=== PATIENT | female | born 1935 | race African-American/Black ===

== ENCOUNTER 2017-04-03 16:36 | Day surgery (SDC) | payer OTHER, MEDICARE ==
[2017-04-03 16:42] VITALS: BMI 19.8
[2017-04-03] MEDS ORDERED: LIDOCAINE HCL 1%, 10 MG/ML (20ML VIAL) ONE (16:59)
[2017-04-03] MEDS ORDERED: HEPARIN NA (PORCINE) 5,000 UNITS/ML 1ML VIAL ONE ×3 (16:59→19:10)
--- NOTE | 2017-04-03 17:38 | PDOC ---
Attending Attestation - Resident Resident Name: Gage Hassan - ED Attending Attestation I have performed the following: I have examined & evaluated the patient, The case was reviewed & discussed with the resident, I agree w/resident's findings & plan, Exceptions are as noted - HPI HPI: 81 yo F history ESRD on HD MWF presents with clotted AVF. She was scheduled for dialysis today, was not able to get it due to inability to access the fistula. She denies any trauma. No pain. No weakness, numbness. - Physicial Exam PE: GENERAL: Awake, alert, and fully oriented, in no acute distress HEAD: No signs of trauma EYES: PERRLA, EOMI, sclera anicteric, conjunctiva clear ENT: Auricles normal inspection, hearing grossly normal, nares patent, oropharynx clear without exudates. Moist mucosa NECK: Normal ROM, supple, no lymphadenopathy, JVD, or masses LUNGS: Breath sounds equal, clear to auscultation bilaterally. No wheezes, and no crackles HEART: Regular rate and rhythm, normal S1 and S2, no murmurs, rubs or gallops ABDOMEN: Soft, nontender, normoactive bowel sounds. No guarding, no rebound. No masses EXTREMITIES: L upper arm AVF with absent thrill, bruit. Extremities with otherwise normal range of motion, no edema. No clubbing or cyanosis. No cords, erythema, or tenderness NEUROLOGICAL: Cranial nerves II through XII grossly intact. Normal speech, normal gait SKIN: Warm, Dry, normal turgor, no rashes or lesions noted. - Medical Decision Making Patient sent by Dr. Momin for admission via OR.
[2017-04-03 17:52] LABS: BASOPHIL 1.9 % (0-2.0); EOSINOPHIL 3.1 % (0-4.5); MCH 33.1 pg (25.7-33.7); MCHC 34.1 g/dl (32.0-36.0); MEAN CELL VOLUME 97.1 fl (80-96); MEAN PLT VOLUME 7.5 fl (7.5-11.1); NEUTROPHILS 48.4 % (42.8-82.8); PLATELET COUNT 360 K/MM3 (134-434); RDW 13.8 % (11.6-15.6)
--- NOTE | 2017-04-03 17:52 | PDOC ---
History of Present Illness <Blank Nur - Last Filed: 04/03/17 17:54> - History of Present Illness Initial Comments: 04/03/17 17:47 Patient is a 81 year old female with a history of HTN, DM and ESRD on Dialysis MWF who presents with a clotted AV shunt. The patient is accompanied by her daughter who assists in providing the history. They report that the patient was at dialysis today when the tech could not access the shunt and noted clotted blood. They noted no palpable thrill and sent them to the ED for evaluation prior to vascular surgery to revise the shunt. The daughter reports that the shunt has clotted off three time prior with multiple stents placed to attempt to keep it open. This is the fourth time the shunt has clotted. Dr. Momin is aware and is planning to take her to the OR for revision. She denies fevers, chills, SOB, chest pain, abdominal pain, or changes with urination or bowel movements. <Gage Hassan - Last Filed: 04/03/17 18:37> - General Chief Complaint: Dialysis Shunt Problem Stated Complaint: Dialysis Shunt Problem Time Seen by Provider: 04/03/17 17:31 Past History <Blank Nur - Last Filed: 04/03/17 17:54> - Past Medical History Diabetes: Yes Dialysis: Yes (left arm fistula mon we fr) HTN: Yes Hypercholesterolemia: Yes - Immunization History Immunization Up to Date: No - Psycho/Social/Smoking Cessation Hx Suicidal Ideation: No Smoking History: Never smoked Information on smoking cessation initiated: No Hx Alcohol Use: No Drug/Substance Use Hx: No Substance Use Type: None <Gage Hassan - Last Filed: 04/03/17 18:37> - Past Medical History Allergies/Adverse Reactions: Allergies Allergy/AdvReac Type Severity Reaction Status Date / Time No Known Allergies Allergy Verified 04/03/17 16:42 Home Medications: Ambulatory Orders Amlodipine Besylate [Norvasc -] 10 mg PO DAILY 12/16/13 Clindamycin [Cleocin -] 300 mg PO Q6HPO #20 capsule 12/16/13 Hum Insulin NPH/Reg Insulin Hm [Novolin 70-30 100 Unit/ml Vial] 15 unit SQ BID 12/16/13 Pravastatin Sodium [Pravachol -] 40 mg PO HS 12/16/13 Review of Systems - Review of Systems Constitutional: No: Chills, Fever Respiratory: No: Cough, Shortness of Breath Cardiac (ROS): No: Chest Pain, Lightheadedness, Chest Tightness ABD/GI: No: Constipated, Diarrhea, Nausea, Vomiting : No: Burning, Dysuria Integumentary: No: Rash Neurological: No: Headache, Numbness, Tingling, Weakness <Gage Hassan - Last Filed: 04/03/17 18:37> *Physical Exam - Vital Signs Last Vital Signs Temp Pulse Resp BP Pulse Ox 98.4 F 63 18 151/83 100 04/03/17 16:40 04/03/17 16:40 04/03/17 16:40 04/03/17 16:40 04/03/17 16:40 <Blank Nur - Last Filed: 04/03/17 17:54> - Vital Signs Last Vital Signs Temp Pulse Resp BP Pulse Ox 98.4 F 63 18 151/83 100 04/03/17 16:40 04/03/17 16:40 04/03/17 16:40 04/03/17 16:40 04/03/17 16:40 - Physical Exam Comments: 04/03/17 18:11 General Appearance: Nourished. No Apparent Distress HEENT: No Pharyngeal Erythema, Tonsillar Exudate, Tonsillar Erythema Neck: No Lymphadenopathy Respiratory/Chest: Lungs Clear, Normal Breath Sounds. No Crackles, Rales, Rhonchi, Wheezing Cardiovascular: Regular Rhythm, Regular Rate. No Murmur, Gallop/S3, Gallop/S4 Gastrointestinal/Abdominal: Normal Bowel Sounds, Soft. No Guarding, Rebound, Tenderness Extremity: Normal Capillary Refill, Left AV fistula palpated without palpable thrill Integumentary: Normal Color, Dry, Warm Neurologic: Fully Oriented, Alert, Normal Mood/Affect, Normal Response <Gage Hassan - Last Filed: 04/03/17 18:37> Heart Score/ECG Review #1 ECG reviewed & interpreted by me at: 18:17 General ECG Interpretation: Sinus Rhythm, Normal Rate, Normal Intervals, No acute ischemic changes <Gage Hassan - Last Filed: 04/03/17 18:37> ED Treatment Course - LABORATORY CBC & Chemistry Diagram: 04/03/17 17:42 04/03/17 17:42 - ADDITIONAL ORDERS Additional order review: 04/03/17 17:42 RBC 3.58 L MCV 97.1 H MCHC 34.1 RDW 13.8 MPV 7.5 Neutrophils % 48.4 Lymphocytes % 39.4 Monocytes % 7.2 Eosinophils % 3.1 Basophils % 1.9 <Blank Nur - Last Filed: 04/03/17 17:54> - LABORATORY CBC & Chemistry Diagram: 04/03/17 17:42 04/03/17 17:42 <Gage Hassan - Last Filed: 04/03/17 18:37> Medical Decision Making - Medical Decision Making 04/03/17 18:12 Patient is a 81 year old female with a history of HTN, DM and ESRD on Dialysis MWF who presents with a clotted AV shunt. Dr. Momin has already seen the patient in the ED and will be taking her up to the OR for revision. We will obtain a cbc, cmp, INR and EKG here in the ED as pre-operative preparation. We discussed the plan with the patient and she is aware and agreeable with the plan. 04/03/17 18:16 Patient has been taken up to the OR. CMP, INR are still pending. CBC is unremarkable. <Gage Hassan - Last Filed: 04/03/17 18:37> *DC/Admit/Observation/Transfer - Discharge Dispostion Admit: Yes <Blank Nur - Last Filed: 04/03/17 17:54> <Gage Hassan - Last Filed: 04/03/17 18:37> Diagnosis at time of Disposition: Clotted renal dialysis AV graft Qualifiers: Encounter type: initial encounter Qualified Code(s): T82.868A - Thrombosis due to vascular prosthetic devices, implants and grafts, initial encounter - Discharge Dispostion Condition at time of disposition: Guarded - Referrals Referrals: Chely Iyer MD [Primary Care Provider] -
[2017-04-03 18:02] LABS: INR 1.03 (0.82-1.09); PROTHROMBIN TIME (PATIENT) 11.3 SEC (9.98-11.88)
--- NOTE | 2017-04-03 18:05 | HP ---
Admitting History and Physical - Admission History of Present Illness: 81 year old woman with ESRD on HD has a clotted AV graft and was unable to receive dialysis today. She recently had thrombectomy in January with stenting of axillary vein. 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 Cardiovascular: Yes: HTN Renal/: Yes: Renal Failure, Hemodialysis - Smoking History Smoking history: Never smoked - Alcohol/Substance Use Hx Alcohol Use: No Home Medications - Allergies Allergies/Adverse Reactions: Allergies Allergy/AdvReac Type Severity Reaction Status Date / Time No Known Allergies Allergy Verified 04/03/17 16:42 - Home Medications Home Medications: Ambulatory Orders Amlodipine Besylate [Norvasc -] 10 mg PO DAILY 12/16/13 Clindamycin [Cleocin -] 300 mg PO Q6HPO #20 capsule 12/16/13 Hum Insulin NPH/Reg Insulin Hm [Novolin 70-30 100 Unit/ml Vial] 15 unit SQ BID 12/16/13 Pravastatin Sodium [Pravachol -] 40 mg PO HS 12/16/13 Physical Examination Vital Signs: Vital Signs Temperature 98.4 F 04/03/17 16:40 Pulse Rate 63 04/03/17 16:40 Respiratory Rate 18 04/03/17 16:40 Blood Pressure 151/83 04/03/17 16:40 O2 Sat by Pulse Oximetry (%) 100 04/03/17 16:40 Constitutional: Yes: Calm Eyes: Yes: WNL HENT: Yes: WNL Neck: Yes: WNL, Supple Cardiovascular: Yes: Regular Rate and Rhythm Respiratory: Yes: Regular Gastrointestinal: Yes: Soft Extremities: Yes: WNL, Other (Left arm graft no pulse or bruit) Labs: CBC, BMP 04/03/17 17:42 Problem List - Problems (1) Clotted renal dialysis AV graft Assessment/Plan: Plan operative thrombectomy and angiogram Code(s): T82.868A - THROMBOSIS DUE TO VASCULAR PROSTH DEV/GRFT, INIT Qualifiers: Encounter type: initial encounter Qualified Code(s): T82.868A - Thrombosis due to vascular prosthetic devices, implants and grafts, initial encounter (2) ESRD (end stage renal disease) on dialysis Assessment/Plan: Dr. Reyes consulted for dialysis in AM Code(s): N18.6 - END STAGE RENAL DISEASE Z99.2 - DEPENDENCE ON RENAL DIALYSIS
[2017-04-03 18:15] LABS: ALBUMIN 3.7 g/dl (3.4-5.0); ANION GAP 12 (8-16); BILIRUBIN,TOTAL 0.3 mg/dL (0.2-1.0); CALCIUM 9.3 mg/dL (8.5-10.1); CO2 26 mmol/L (21-32); GLUCOSE,RANDOM 191 mg/dL (74-106); SGOT/AST 11 U/L (15-37); SGPT/ALT 15 U/L (12-78); TOT PROT 7.9 g/dl (6.4-8.2)
[2017-04-03 18:30] LABS: ALK PHOS 137 U/L (45-117); CREATININE 7.6 mg/dL (0.55-1.02)
[2017-04-03] MEDS ORDERED: MIDAZOLAM HCL 2 MG/2 ML SINGLE DOSE VIAL ONE (18:49)
[2017-04-03] MEDS ORDERED: hydrALAZINE HCL 20 MG/ML VIAL ONE (19:02)
--- NOTE | 2017-04-03 19:46 | OP ---
Operative Note - Note: Operative Date: 04/03/17 Pre-Operative Diagnosis: Thrombosed AV graft Operation: Open thrombectomy AV graft. Venogram Findings: Thrombosed AV graft Mild stenosis of axillary vein stents No arterial stenosis. Post-Operative Diagnosis: Same as Pre-op Surgeon: Juan Momin Anesthesiologist/GOVERNMENT AFFAIRS SPECIALIST: Alfredo Reid Anesthesia: Fractional Estimated Blood Loss (mls): 50
[2017-04-03] MEDS ORDERED: ACETAMINOPHEN 325 MG TABLET (FP) PO PRN (19:52)
[2017-04-03] MEDS ORDERED: ONDANSETRON 4 MG/2 ML VIAL IVPB PRN (19:52)
[2017-04-03] MEDS ORDERED: oxyCODONE HCL 5 MG TABLET PO PRN (19:52)
[2017-04-03] MEDS ORDERED: ASPIRIN 81 MG CHEWABLE TABLETS ONE (20:10)
[2017-04-03] MEDS: ASPIRIN 81 MG CHEWABLE TABLETS PO SCH (20:10)
[2017-04-03] MEDS ORDERED: ATORVASTATIN CA 10 MG TABLET (FP) PO SCH (22:00)
[2017-04-03] MEDS: amLODIPine BESYLATE 10 MG TABLET (FP) PO SCH (22:02)
[2017-04-04] MEDS ORDERED: ALLOPURINOL 100 MG TABLET (FP) PO SCH (10:00)
[2017-04-04] MEDS ORDERED: VITAMIN B COMP W-C 1 EA TABLET PO SCH (10:00)
[2017-04-04] MEDS ORDERED: ENOXAPARIN NA (PORCINE) 30 MG/0.3 ML DISP.SYRIN SQ SCH (10:00)
[2017-04-04 10:19] VITALS: TEMP 97.8
--- NOTE | 2017-04-04 11:28 | CONSULT ---
Consult Consult Specialty:: Nephrology ( Drs. Iyer/ Leo) Referred by:: Dr. Momin Reason for Consultation:: Patient with ESRD - History of Present Illness Chief Complaint: 81 year old woman with ESRD on HD has a clotted AV graft and was unable to receive dialysis yesterday. She recently had thrombectomy in January with stenting of axillary vein. The patient had thrombectomy done by Dr. Momin yesterday, and is now receiving HD using the AVG. ABF maintained at 400 ml/min. 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: Yes: CVA Cardio/Vascular: Yes: HTN Renal/: Yes: Renal Failure, Hemodialysis ...: No - Alcohol/Substance Use Hx Alcohol Use: No - Smoking History Smoking history: Never smoked Home Medications - Allergies Allergies/Adverse Reactions: Allergies Allergy/AdvReac Type Severity Reaction Status Date / Time No Known Allergies Allergy Verified 04/03/17 16:42 - Home Medications Home Medications: Ambulatory Orders Amlodipine Besylate [Norvasc -] 10 mg PO DAILY 12/16/13 Clindamycin [Cleocin -] 300 mg PO Q6HPO #20 capsule 12/16/13 Hum Insulin NPH/Reg Insulin Hm [Novolin 70-30 100 Unit/ml Vial] 15 unit SQ BID 12/16/13 Pravastatin Sodium [Pravachol -] 40 mg PO HS 12/16/13 Review of Systems - Review of Systems Constitutional: reports: Malaise, Weakness HENT: reports: No Symptoms Neck: reports: No Symptoms Respiratory: reports: No Symptoms Gastrointestinal: reports: No Symptoms Breasts: reports: No Symptoms Reported Neurological: reports: No Symptoms Physical Exam Vital Signs: Vital Signs Temperature 97.8 F 04/04/17 09:55 Pulse Rate 70 04/04/17 11:00 Respiratory Rate 18 04/04/17 11:00 Blood Pressure 163/72 04/04/17 11:00 O2 Sat by Pulse Oximetry (%) 99 04/03/17 23:59 Constitutional: Yes: No Distress, Calm Eyes: Yes: Conjunctiva Clear HENT: Yes: Atraumatic Neck: Yes: Trachea Midline Cardiovascular: Yes: Regular Rate and Rhythm, S1, S2 Respiratory: Yes: Regular, CTA Bilaterally Gastrointestinal: Yes: Normal Bowel Sounds, Soft Labs: CBC, BMP 04/03/17 17:42 04/03/17 17:42 Problem List - Problems (1) Clotted renal dialysis AV graft Code(s): T82.868A - THROMBOSIS DUE TO VASCULAR PROSTH DEV/GRFT, INIT Qualifiers: Encounter type: initial encounter Qualified Code(s): T82.868A - Thrombosis due to vascular prosthetic devices, implants and grafts, initial encounter (2) ESRD (end stage renal disease) on dialysis Code(s): N18.6 - END STAGE RENAL DISEASE Z99.2 - DEPENDENCE ON RENAL DIALYSIS Assessment/Plan 81 year old woman with ESRD on HD has a clotted AV graft She recently had thrombectomy in January with stenting of axillary vein. S?P Thrombectomy last night. The AVG is being used for dialysis. Working well. Adequate ABF attained. Orders reviewed with the DAVID. Matty at the end of dialysis.
[2017-04-04] MEDS ORDERED: EPOETIN ALFA 10,000 UNIT/1 ML VIAL SQ ONE (12:00)
--- NOTE | 2017-04-04 13:07 | EKG ---
Test Reason : Blood Pressure : / mmHG Vent. Rate : 063 BPM Atrial Rate : 063 BPM P-R Int : 180 ms QRS Dur : 082 ms QT Int : 436 ms P-R-T Axes : 045 017 056 degrees QTc Int : 446 ms UNDETERMINED RHYTHM LEFT VENTRICULAR HYPERTROPHY WITH REPOLARIZATION ABNORMALITY NONSPECIFIC ST-T ABNORMALITIES NO PREVIOUS EKG AVAILABLE REPEAT EKG IF CLINICALLY INDICATED Confirmed by WALTER CERRATO MD ([id number]) on 04/04/2017 1:07:30 PM Referred By: Confirmed By:WALTER CERRATO MD
[2017-04-04 13:50] VITALS: BP 150/72; PULSE 62
--- NOTE | 2017-04-04 14:32 | PN ---
Progress Note (short form) - Note Progress Note: Anesthesiology Post-op POD#1 s/p open thrombectomy/venogram of LUE AV graft under MAC anesthesia. Pt. is feeling well, denies pain. Just had hemodialysis this morning with no issues. VSS.
[2017-04-04] MEDS: amLODIPine BESYLATE 10 MG TABLET (FP) PO SCH (14:44)
[2017-04-04] MEDS ORDERED: PT OWN MED DRAWER 7, Y5N ONE (14:47)
[2017-04-04] MEDS: ASPIRIN 81 MG CHEWABLE TABLETS PO SCH (14:48)
[2017-04-07 14:15] LABS: HEP B SURFACE AB Reactive (.)
--- NOTE | 2017-04-08 14:43 | PATH ---
Surgical Pathology Report Patient Name: SADI SHAH Med. Rec. #: [id number] /Age/Gender: 1935 (Age: 81) / F Account: [id number] Location: AMBULATORY SURG Taken: 04/03/2017 Received: 04/07/2017 Reported: 04/08/2017 Physicians: Nell Madison Specimen(s) Received CLOT FROM LEFT ARM Clinical History Clotted left A-V graft Final Diagnosis CLOT, LEFT ARM, OPEN THROMBECTOMY: FRAGMENTS OF THROMBUS. Electronically Signed John Tipton M.D. Gross Description Received in formalin labeled "clot from left arm" is a 2.2 x 1.7 x 0.3 cm aggregate of red-brown blood clot. The specimen is submitted in toto in one cassette. 04/07/201704/07/2017
--- NOTE | 2017-04-19 20:55 | OP ---
DATE OF OPERATION: 04/03/2017 PROCEDURE: Open thrombectomy of arteriovenous graft with venography. PREOPERATIVE DIAGNOSIS: Thrombosed arteriovenous graft. POSTOPERATIVE DIAGNOSIS: Thrombosed arteriovenous graft. ANESTHESIA: Fractional. ANESTHESIOLOGIST: Alfredo Reid MD OPERATIVE FINDINGS: The left upper arm arteriovenous graft was thrombosed. Following thrombectomy, venography revealed patent axillary vein stents with no severe stenosis. There was no evidence of arterial anastomotic stenosis. OPERATIVE PROCEDURE: Following routine patient identification with side and site verification, intravenous sedation was established. The left arm was prepped with ChloraPrep. Time-out was performed. Xylocaine 1% was infiltrated over the upper end of the AV graft in the left arm, and a small skin incision made. The subcutaneous tissues were divided using cautery for hemostasis. The graft was mobilized from the surrounding tissues with sharp dissection. It was encircled with vessel loops. The patient was systemically heparinized. A transverse incision was made in the graft. A number 4 Sky catheter was passed proximally and withdrawn, with removal of thrombus and anabaptism of venous backbleeding. Venography with dilute contrast was then performed, with the above-noted findings. The graft was filled with heparin solution and was occluded with a vascular clamp. Thrombectomy of the arterial limb was then performed with number 4 Sky catheter until arterial inflow was restored. Contrast was injected retrograde through the graft, with visualization of the arteriovenous anastomosis and brachial artery, with no abnormality identified. The graft was filled with heparin solution and was occluded with a vascular clamp. The graft incision was closed with running suture of 6-0 Prolene. Prior to completion of the suture line, the graft was allowed to back-bleed and flush. The suture line was completed and pulse was then present in the graft. Surgicel was applied to control any bleeding from the suture line, and the wound was closed with interrupted suture of 3-0 Vicryl and skin steve. Sterile dressings were applied, and the patient was taken to the recovery area in stable condition. VIVIAN HART M.D. [id number] MTDD
== END 2017-04-04 15:30 | disposition home or self-care (01) ==
LOC: JER 16:36 → JASUSAT 17:55 → JER 18:23 → J8W 21:40 → JASUSAT 04-04 15:30
PROVIDERS: ATTEND Surgery
PROC: B51NYZA Fluoroscopy of Left Upper Extremity Veins using Other Contrast, Guidance (ICD-10-PCS; 2017-04-03)
PROC: 05C80ZZ Extirpation of Matter from Left Axillary Vein, Open Approach (ICD-10-PCS; principal; 2017-04-03 19:13)
DX: T82.868A Thrombosis due to vascular prosthetic devices, implants and grafts, initial encounter (principal); I12.0 Hypertensive chronic kidney disease with stage 5 chronic kidney disease or end stage renal disease; N18.6 End stage renal disease; Z99.2 Dependence on renal dialysis
CPT/HCPCS: 36415; 80053; 85025; 85610; 86704; 86706; 86708; 86803; 87340; 88304-TC; 93005; 93010; 94760; 99284-25; J0885; J1644

== ENCOUNTER 2018-06-09 16:42 | Inpatient (IN) | payer OTHER, MEDICARE ==
--- NOTE | 2018-06-09 16:47 | PDOC ---
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 Pt has no other access available for HD. Pt has been receiving dialysis and taking her medications as prescribed. Pt states her systolic BP is often above 200, and records from the HD center show that her pre-HD BP is often 200/60s and improves to 120s/50s. Pt denies any symptoms at this time and states she has been feeling well. Pt denies any fevers/chills, headache, vision changes, chest pain, SOB, nausea/vomiting, abdominal pain, diarrhea/constipation, or leg swelling. Pt denies any cigarette, alcohol, or drug use. Pt denies any recent travel or sick contacts. 06/20/18 19:18 Past History - Travel Traveled outside of the country in the last 30 days: No Close contact w/someone who was outside of country & ill: No - Past Medical History Allergies/Adverse Reactions: Allergies Allergy/AdvReac Type Severity Reaction Status Date / Time No Known Allergies Allergy Verified 06/09/18 17:16 Home Medications: Ambulatory Orders Amlodipine Besylate [Norvasc -] 10 mg PO DAILY 12/16/13 Pravastatin Sodium [Pravachol -] 40 mg PO HS 12/16/13 Hydralazine HCl 75 mg PO TID 06/09/18 Ammonium Lactate Cream [Lac-Hydrin 12% Cream -] 1 applic TP BID 30 Days #1 tube 06/15/18 Clindamycin [Cleocin -] 300 mg PO TID #21 capsule 06/15/18 Lactobacillus Acidophilus [Acidophilus] 1 each PO DAILY 30 Days #30 capsule Miscellaneous Medical Supply [Outpatient Order] 1 each ASDIR #1 misc Miscellaneous Medical Supply [Outpatient Order] 1 each ASDIR #1 misc Diabetes: Yes Dialysis: Yes (left arm fistula mon we fr) HTN: Yes Hypercholesterolemia: Yes - Immunization History Immunization Up to Date: No - Suicide/Smoking/Psychosocial Hx Smoking History: Never smoked Hx Alcohol Use: No Drug/Substance Use Hx: No Substance Use Type: None Review of Systems - Review of Systems Able to Perform ROS?: Yes Is the patient limited Kyrgyz proficient: No Constitutional: Yes: Weight Stable. No: Chills, Diaphoresis, Fever, Loss of Appetite, Malaise HEENTM: No: Blurred Vision, Double Vision, Nose Congestion, Hearing Loss, Difficulty Swallowing Respiratory: No: Cough, Orthopnea, Shortness of Breath Cardiac (ROS): No: Chest Pain, Edema, Irregular Heart Rate, Lightheadedness, Palpitations, Syncope, Chest Tightness ABD/GI: No: Abdominal Distended, Constipated, Diarrhea, Nausea, Poor Appetite, Poor Fluid Intake, Vomiting, Abdominal cramping : Yes: Other (poor urine output). No: Burning, Dysuria, Frequency, Pain, Urgency Musculoskeletal: No: Back Pain, Joint Pain, Joint Swelling, Muscle Pain, Joint Stiffness, Other (no pain around thrombosed graft area of L AC) Integumentary: No: Bruising, Erythema, Lesions, Rash Neurological: No: Headache, Numbness, Seizure, Tremors, Weakness, Unsteady Gait , Ataxia, Dizziness Psychiatric: No: Sleep Pattern Change, Change in Appetite Endocrine: No: Increased Urine, Change in Weight Hematologic/Lymphatic: Yes: Other (prior thrombosed AV graft of L AC (Apr 2017) ). No: Anemia, Blood Clots, Easy Bleeding, Easy Bruising All Other Systems: Reviewed and Negative *Physical Exam - Physical Exam General Appearance: Yes: Nourished, Appropriately Dressed. No: Apparent Distress (pt very hypertensive, no complaints or headache, pt lying comfortably) HEENT: positive: EOMI, FEI, Normal ENT Inspection, Normal Voice, Symmetrical, TMs Normal, Pharynx Normal, Hearing Grossly Normal. negative: Scleral Icterus ( R), Scleral Icterus (L), Pharyngeal Erythema, Tonsillar Exudate, Tonsillar Erythema, Nasal Congestion, Rhinorrhea, Sinus Tenderness, TM Bulging, TM Dull, TM Erythema Neck: positive: Trachea midline, Normal Thyroid, Supple. negative: Tender, Rigid, Decreased range of motion, Lymphadenopathy (R), Lymphadenopathy (L), Rigidity Respiratory/Chest: positive: Lungs Clear, Normal Breath Sounds. negative: Chest Tender, Respiratory Distress, Accessory Muscle Use, Crackles, Wheezing Cardiovascular: positive: Regular Rhythm, Regular Rate, S1, S2. negative: Edema , JVD, Murmur Vascular Pulses: Carotid (R): 4+, Carotid (L): 4+ (good brachial+radial pulses) Gastrointestinal/Abdominal: positive: Normal Bowel Sounds, Flat, Soft. negative : Tender, Organomegaly, Pulsatile Mass, Distended, Guarding, Rebound Rectal Exam: positive: deferred Lymphatic: negative: Adenopathy, Tenderness Musculoskeletal: positive: Normal Inspection. negative: CVA Tenderness, Decreased Range of Motion Extremity: positive: Normal Capillary Refill, Normal Inspection, Normal Range of Motion, Pelvis Stable. negative: Tender, Pedal Edema, Erythema Integumentary: positive: Normal Color, Dry, Warm, Other (L AC AV graft site, no active bleeding or drainage. No tenderness to palpation. No decreased sensation. ). negative: Erythema, Jaundice, Rash, Swelling, Ecchymosis Neurologic: positive: weight and test bar clerk II-XII NML intact, Fully Oriented, Alert, Normal Mood/ Affect, Normal Response, Motor Strength 5/5. negative: EOM Palsy, Facial Droop , Numbness ED Treatment Course - LABORATORY CBC & Chemistry Diagram: 06/11/18 07:00 06/11/18 07:00 Medical Decision Making - Medical Decision Making Pt was seen at bedside, also will be seen by attending Dr. Schafer. Pt presenting via EMS from [facility] due to blockage of her LUE AV graft for dialysis and HTN (200/80s). Pt has no other access available for HD. Pt has PMH of ESRD (HD M/W/F) and HTN, and has been receiving dialysis and taking her medications as prescribed. Pt states her systolic BP is often above 200, and records from the HD center show that her pre-HD BP is often 200/60s and improves to 120s/50s. Pt denies any symptoms at this time and states she has been feeling well. Pt denies any fevers/chills, headache, vision changes, chest pain, SOB, nausea/vomiting, abdominal pain, diarrhea/constipation, or leg swelling. Ordered work-up including CBC, CMP, Mg, Phos, coags, troponin, ECG. Will continue to reassess pt and monitor for symptomatic improvement. 06/09/18 17:46 Chest x-ray clear. ECG showed NSR, HR 66, normal intervals, no ST segment changes, no signs of acute hyperkalemia. Hydralazine 10 mg IV provided for BP. Will reassess. Pt is difficult stick, attempting US guided and arterial stick for labs. 06/09/18 18:[address] Momin. Still attempting to get blood draw. 06/09/18 18:37 Repeat BP 209/54, HR 67. Will provide additional 75 mg PO hydralazine for BP control. 06/09/18 18:[address] Ramon (on-call for Dr. Isabel) who will come to see the pt. Requested US of the graft arm. 06/09/18 18:50 Pt being sent for US evaluation of the graft LUE. Will attempt arterial stick again when she returns, additional attempt at blood draw unsuccessful. 06/09/18 19:24 [id number] US/DUPLEX VASCUL US-1 ARM Left upper extremity duplex vascular ultrasound Clinical information given: thrombosed AV graft The exam was performed utilizing grayscale, compression and Doppler sonography. There is occlusion of the graft from the level of the elbow to the lower aspect of the axilla. Impression: As noted above. CBC WNL for pt. CMP showed K 4.1, Mg 41, Cr 6.4, P 5.3, Mg 2.3, Trop <.02 (WNL for pt according to dialysis notes). US doppler of the LUE showed occlusion of the graft from the level of the elbow to the axilla. Spoke again with Dr. Ramon who asked for pt to be made NPO after midnight. Pt provided with dinner, daughter will ensure no intake after midnight. Dr. Ramon will see pt in the AM after admitted to medicine. Pt was admitted and vitals remained stable. BP improved after administration of hydralazine IV and PO doses. Pt was comfortable during the duration of her stay in the ER, with no desaturations or complications. 06/09/18 22:05 06/20/18 19:13 06/20/18 19:30 *DC/Admit/Observation/Transfer Diagnosis at time of Disposition: ESRD (end stage renal disease) on dialysis Clotted renal dialysis AV graft Qualifiers: Encounter type: sequela Qualified Code(s): T82.868S - Thrombosis due to vascular prosthetic devices, implants and grafts, sequela - Discharge Dispostion Disposition: HOME Condition at time of disposition: Improved Decision to Admit order: Yes - Referrals - Patient Instructions - Post Discharge Activity
--- NOTE | 2018-06-09 17:14 | PDOC ---
Attending Attestation - HPI HPI: This patient is an 82 year old female with a history of HTN, DM and ESRD on Dialysis MWF who presents with a clotted AV shunt. Patient states that she went for hemodialysis but wasnt able to receive dialysis since they werent able to gain access. Patient notes that she has been compliant with all her medications. She notes elevated blood pressure prior to when she was supposed to receive dialysis. She notes no current complaints at this time. Corporate Investigator -Dr. Chely Hinds Vascular surgeon - Dr. Andino <Yoana Guzman - Last Filed: 06/09/18 17:25> - Resident Resident Name: Flavia Herrera - ED Attending Attestation I have performed the following: I have examined & evaluated the patient, The case was reviewed & discussed with the resident, I agree w/resident's findings & plan, Exceptions are as noted - Physicial Exam PE: 06/09/18 18:57 Patient is awake and alert, well-appearing, hypertensive, in no distress Normocephalic and atraumatic PERRLA, EOMI No JVD CTA RRR, 3/6 holosystolic ejection murmur Abdomen is soft and nontender No lower extremity edema - Medical Decision Making 06/09/18 18:58 Patient is a well-appearing 82-year-old female with history of hypertension and end-stage renal disease on hemodialysis who presents from a hemodialysis center after a failed session due to a thrombosed left upper extremity AV graft. Patient's hypertensive without evidence of end organ damage. EKG shows no evidence of hyperacute T waves or widened QRS. Chest x-ray reveals no evidence of fluid overload. We'll obtain CBC/CMP to evaluate for acidosis and uremia. We' ll obtain left upper extremity Doppler ultrasound to evaluate for flow and we' ll consult vascular surgery. Likely admission for revascularization and dialysis. 06/09/18 18:59 Will treat hypertension with IV hydralazine followed by by mouth hydralazine 06/09/18 21:34 Last blood pressure is noted to be 189/59. Patient is resting comfortably. No evidence of significant acidosis/uremia or hyperkalemia. Will admit to med/ surge for vascular and renal consults. <Brian Schafer - Last Filed: 06/09/18 21:34>
[2018-06-09 17:16] VITALS: BMI 19.5
[2018-06-09] MEDS ORDERED: hydrALAZINE HCL 20 MG/ML VIAL IVPUSH ONE (17:40)
[2018-06-09] MEDS ORDERED: hydrALAZINE HCL 20 MG/ML VIAL ONE (18:12)
[2018-06-09] MEDS ORDERED: hydrALAZINE HCL 50 MG TABLET (FP) PO ONE (18:45)
[2018-06-09] MEDS ORDERED: hydrALAZINE HCL 25 MG TABLET (FP) ONE (18:52)
[2018-06-09] MEDS ORDERED: LIDOCAINE 1%/EPI 1:100000 (20 ML MULTI DOSE VIAL) ONE (19:55)
[2018-06-09 20:26] LABS: BASO % 1.4 % (0-2.0); EOS % 2.6 % (0-4.5); HEMATOCRIT 30.5 % (32.4-45.2); HEMOGLOBIN 10.6 GM/dL (10.7-15.3); LYMPH % 30.4 % (8-40); MCH 33.2 pg (25.7-33.7); MCHC 34.6 g/dl (32.0-36.0); MEAN CELL VOLUME 95.9 fl (80-96); MEAN PLT VOLUME 7.4 fl (7.5-11.1); MONO % 8.3 % (3.8-10.2); NEUT % 57.3 % (42.8-82.8); PLATELET COUNT 473 K/MM3 (134-434); RBC 3.18 M/mm3 (3.60-5.2); RDW 14.8 % (11.6-15.6); WHITE BLOOD COUNT 8.4 K/mm3 (4.0-10.0)
[2018-06-09 20:42] LABS: INR 0.91 (0.83-1.09); PROTHROMBIN TIME (PATIENT) 10.7 SEC (9.7-13.0)
[2018-06-09 20:45] LABS: ACTIVATED PTT 29.2 SECONDS (25.2-36.5)
[2018-06-09 21:02] LABS: ALBUMIN 3.4 g/dl (3.4-5.0); ALK PHOS 83 U/L (45-117); ANION GAP 16 MMOL/L (8-16); BILIRUBIN,TOTAL 0.3 mg/dL (0.2-1); BLOOD UREA NITROGEN 41 mg/dL (7-18); CALCIUM 8.9 mg/dL (8.5-10.1); CHLORIDE 100 mmol/L (98-107); CO2 21 mmol/L (21-32); CREATININE 6.4 mg/dL (0.55-1.3); GLUCOSE,RANDOM 132 mg/dL (74-106); MAGNESIUM 2.3 mg/dL (1.8-2.4); PHOSPHOROUS 5.3 mg/dL (2.5-4.9); POTASSIUM 4.1 mmol/L (3.5-5.1); SGOT/AST 10 U/L (15-37); SGPT/ALT 14 U/L (13-61); SODIUM 137 mmol/L (136-145); TOT PROT 7.1 g/dl (6.4-8.2)
--- NOTE | 2018-06-09 22:41 | PN ---
Teaching Attending Note Name of Resident: Jose Angel Patel ATTENDING PHYSICIAN STATEMENT I saw and evaluated the patient. I reviewed the resident's note and discussed the case with the resident. I agree with the resident's findings and plan as documented. SUBJECTIVE: Patient is an 82 year old womane with a history of HTN, DM and ESRD on Dialysis MWF who presents with a clotted dialysis AV access. Patient states that she went for hemodialysis but wasnt able to receive dialysis since they werent able to gain access. Patient notes that she has been compliant with all her medications. She notes elevated blood pressure prior to when she was supposed to receive dialysis. She notes no current complaints at this time. OBJECTIVE: Alert Vital Signs Period Temp Pulse Resp BP Sys/Weber Pulse Ox Last 24 Hr 98.4 F 61-66 17-18 186-251/57-65 98-100 HEENT: No Jaundice, eye redness or discharge, PERRLA, EOMI. NO papiledema. Normocephalic, atraumatic. External ears are normal and hearing is grossly intact. No nasal discharge. Neck: Supple, nontender. No palpable adenopathy or thyromegaly. No JVD Chest: Good effort. Clear to auscultation and percussion. Heart: Regular. No S3, rub or murmur Abdomen: Not distended, soft, nontender and no HSM. No rebound or guarding. Normoactive bowel sounds. Ext: Peripheral pulses intact. No leg edema. Left arm AV fistula - no bruit or thrill Skin: Warm and dry. No petechiae, rash or ecchymosis. Neuro: Alert. Oriented x3. CN 2-12 grossly intact. Sensation grossly intact in all four extremities and DTR are symmetric. Home Medications Medication Instructions Recorded Amlodipine Besylate [Norvasc -] 10 mg PO DAILY 12/16/13 Pravastatin Sodium [Pravachol -] 40 mg PO HS 12/16/13 Hydralazine HCl 75 mg PO TID 06/09/18 Abnormal Lab Results 06/09/18 06/09/18 20:16 20:16 RBC 3.18 L Hgb 10.6 L Hct 30.5 L Plt Count 473 H D MPV 7.4 L BUN 41 H Creatinine 6.4 H Random Glucose 132 H Phosphorus 5.3 H AST 10 L ASSESSMENT AND PLAN: 1. Dialysis vascular access dysfunction - Surgery consulted. Contact nephrology for thrice weekly hemodialysis. 2. Uncontrolled hypertension - Got IV and PO hydralazine in the ER. Will monitor closely. 3. Anemia - Likely mostly due to ESRD. Do serial stool guaiacs and check iron studies. Search for factors that would impair response to Procrit therapy. 4. DVT prophylaxis - Heparin 5000u sq tid. 5. Advance directives - Full code
--- NOTE | 2018-06-10 04:21 | HP ---
CHIEF COMPLAINT: Malfunctioning AV fistula PCP: HISTORY OF PRESENT ILLNESS: Patient is an 82 year old female with history of ESRD on hemodialysis M/W/F last HD Thursday, hypertension, diabetes mellitus, presents with complaint of malfunctioning AV fistula. States that she was at dialysis center today, where they experienced difficulty obtaining access, and performing the dialysis. She admits prior episode of AV fistula thrombosis in 04/2017 requiring surgical open thrombectomy with Dr. Momin. She denies trauma to the arm. Denies pain , swelling, erythema, or parasthesias. Denies fevers, chills, shortness of breath, chest pain, palpitations, abdominal pain, nausea, vomiting, diarrhea, melena, hematochezia, dysuria, hematuria. ER course was notable for: (1) Hydralazine 10mg IV + 75mg PO (2) (3) PAST MEDICAL HISTORY: ESRD, HTN, DM PAST SURGICAL HISTORY: left sided AV fistula, hysterectomy Social History: Smoking: denies Alcohol: denies Drugs: denies Family History: Mother: hypertension Father: patient does not know about her father Allergies No Known Allergies Allergy (Verified 06/09/18 17:16) HOME MEDICATIONS: Home Medications Medication Instructions Recorded Amlodipine Besylate [Norvasc -] 10 mg PO DAILY 12/16/13 Pravastatin Sodium [Pravachol -] 40 mg PO HS 12/16/13 Hydralazine HCl 75 mg PO TID 06/09/18 REVIEW OF SYSTEMS CONSTITUTIONAL: Absent: fever, chills, diaphoresis, generalized weakness, malaise, loss of appetite, weight change HEENT: Absent: rhinorrhea, nasal congestion, throat pain, throat swelling, difficulty swallowing, mouth swelling, ear pain, eye pain, visual changes CARDIOVASCULAR: Absent: chest pain, syncope, palpitations, irregular heart rate, lightheadedness , peripheral edema RESPIRATORY: Absent: cough, shortness of breath, dyspnea with exertion, orthopnea, wheezing, stridor, hemoptysis GASTROINTESTINAL: Absent: abdominal pain, abdominal distension, nausea, vomiting, diarrhea, constipation, melena, hematochezia GENITOURINARY: Absent: dysuria, frequency, urgency, hesitancy, hematuria, flank pain, genital pain MUSCULOSKELETAL: Absent: myalgia, arthralgia, joint swelling, back pain, neck pain SKIN: Absent: rash, itching, pallor HEMATOLOGIC/IMMUNOLOGIC: Absent: easy bleeding, easy bruising, lymphadenopathy, frequent infections ENDOCRINE: Absent: unexplained weight gain, unexplained weight loss, heat intolerance, cold intolerance NEUROLOGIC: Absent: headache, focal weakness or paresthesias, dizziness, unsteady gait, seizure, mental status changes, bladder or bowel incontinence PSYCHIATRIC: Absent: anxiety, depression, suicidal or homicidal ideation, hallucinations. PHYSICAL EXAMINATION Vital Signs - 24 hr 06/09/18 06/09/18 06/09/18 16:45 17:53 18:20 Temperature 98.4 F Pulse Rate 66 Pulse Rate [ 61 Apical] Respiratory 18 18 Rate Blood Pressure 251/64 H Blood Pressure 240/65 H [Right Arm] O2 Sat by Pulse 100 100 98 Oximetry (%) 06/09/18 06/09/18 06/09/18 18:43 20:41 21:34 Temperature Pulse Rate Pulse Rate [ 63 61 62 Apical] Respiratory 18 18 17 Rate Blood Pressure Blood Pressure 209/57 H 190/60 H 186/57 H [Right Arm] O2 Sat by Pulse 98 98 98 Oximetry (%) 06/10/18 06/10/18 01:30 02:11 Temperature Pulse Rate Pulse Rate [ 65 Apical] Respiratory 18 Rate Blood Pressure Blood Pressure 181/58 H [Right Arm] O2 Sat by Pulse 99 98 Oximetry (%) GENERAL: Awake, alert, and fully oriented, in no acute distress. HEAD: Normal with no signs of trauma. EYES: Pupils equal, round and reactive to light, extraocular movements intact, sclera anicteric, conjunctiva clear. No lid lag. EARS, NOSE, THROAT: Ears normal, nares patent, oropharynx clear without exudates. Moist mucous membranes. NECK: Normal range of motion, supple without lymphadenopathy, JVD, or masses. LUNGS: Breath sounds equal, clear to auscultation bilaterally. No wheezes, and no crackles. No accessory muscle use. HEART: Regular rate and rhythm, normal S1 and S2 without murmur, rub or gallop. ABDOMEN: Soft, nontender, not distended, normoactive bowel sounds, no guarding, no rebound, no masses. No hepatomegaly or splenomegaly. MUSCULOSKELETAL: Normal range of motion at all joints. No bony deformities or tenderness. No CVA tenderness. UPPER EXTREMITIES: 2+ radial pulses b/l. warm, well-perfused. Left arm Av fistula without palpable thrill, or auscultated bruit. Nontender to palpation. Not erythematous. No callor. LOWER EXTREMITIES: 2+ dorsalis pedis pulses b/l, warm, well-perfused. No calf tenderness. No peripheral edema b/l. NEUROLOGICAL: Cranial nerves II-XII intact. Normal speech. PSYCHIATRIC: Cooperative. Good eye contact. Appropriate mood and affect upon my encounter. SKIN: Warm, dry. Laboratory Results - last 24 hr 06/09/18 06/09/18 06/09/18 20:16 20:16 20:16 WBC 8.4 RBC 3.18 L Hgb 10.6 L Hct 30.5 L MCV 95.9 MCH 33.2 MCHC 34.6 RDW 14.8 Plt Count 473 H D MPV 7.4 L Absolute Neuts (auto) 4.8 Neutrophils % 57.3 Lymphocytes % 30.4 D Monocytes % 8.3 Eosinophils % 2.6 Basophils % 1.4 Nucleated RBC % 0 PT with INR 10.70 INR 0.91 PTT (Actin FS) 29.2 Sodium 137 Potassium 4.1 Chloride 100 Carbon Dioxide 21 Anion Gap 16 BUN 41 H Creatinine 6.4 H Creat Clearance w eGFR 6.23 Random Glucose 132 H Calcium 8.9 Phosphorus 5.3 H Magnesium 2.3 Total Bilirubin 0.3 AST 10 L ALT 14 Alkaline Phosphatase 83 Troponin I Total Protein 7.1 Albumin 3.4 Blood Type Antibody Screen 06/09/18 06/09/18 06/09/18 20:16 20:16 23:15 WBC RBC Hgb Hct MCV MCH MCHC RDW Plt Count MPV Absolute Neuts (auto) Neutrophils % Lymphocytes % Monocytes % Eosinophils % Basophils % Nucleated RBC % PT with INR INR PTT (Actin FS) Sodium Potassium Chloride Carbon Dioxide Anion Gap BUN Creatinine Creat Clearance w eGFR Random Glucose Calcium Phosphorus Magnesium Total Bilirubin AST ALT Alkaline Phosphatase Troponin I < 0.02 Total Protein Albumin Blood Type O POSITIVE O POSITIVE Antibody Screen Negative ASSESSMENT/PLAN: Patient is an 82 year old female with history of ESRD on hemodialysis M/W/F last HD Thursday, hypertension, diabetes mellitus, presents with complaint of malfunctioning AV fistula. AV fistula thrombosis -Left sided AV fistula without palpable thrill, or asucultated bruit. -US doppler of left upper extremity shows occlusion of the AV graft -Vascular surgery consult (Dr. Ramon) -NPO after midnight. Type and cross, coags, morning labs ordered. ESRD on HD Mon/Wed/Fri -Patient missed hemodialysis today -Nephrology consult (Dr. Jaylon Mo) Hypertensive urgency -Patient received hydralazine 10mg IV and 75mg PO. -Hydralazine 75mg PO TID -Norvasc 10mg PO daily -Follow vital signs Normocytic anemia -Likely secondary to her end stage renal disease -Will F/U reticulocyte count, iron studies. Diabetes -Insulin sliding scale ACHS -Blood glucose monitoring ACHS -F/U HbA1c FEN -No IV fluids -Follow CMP -NPO after midnight except for medications with small sips of water. Prophylaxis -SCDs, TEDs b/l lower extremities. Will hold chemical anticoagulation in anticipation of surgical intervention. Visit type - Emergency Visit Emergency Visit: Yes ED Registration Date: 06/09/18 Care time: The patient presented to the Emergency Department on the above date and was hospitalized for further evaluation of their emergent condition. - New Patient This patient is new to me today: Yes Date on this admission: 06/10/18 - Critical Care Critical Care patient: No
[2018-06-10] MEDS: hydrALAZINE HCL 25 MG TABLET (FP) PO SCH ×3 (05:28→22:26)
[2018-06-10] MEDS: INSULIN SLIDING SCALE (NOVOLOG) 1 VIAL SQ SCH ×3 (06:53→22:33)
[2018-06-10 07:52] LABS: HEMATOCRIT 28.8 % (32.4-45.2); HEMOGLOBIN 10.1 GM/dL (10.7-15.3); MCH 33.4 pg (25.7-33.7); MEAN CELL VOLUME 95.3 fl (80-96); MEAN PLT VOLUME 7.5 fl (7.5-11.1); PLATELET COUNT 457 K/MM3 (134-434); RBC 3.02 M/mm3 (3.60-5.2); RDW 14.7 % (11.6-15.6); WHITE BLOOD COUNT 8.6 K/mm3 (4.0-10.0)
[2018-06-10 08:37] LABS: ALBUMIN 3.3 g/dl (3.4-5.0); ALK PHOS 82 U/L (45-117); ANION GAP 14 MMOL/L (8-16); BILIRUBIN,TOTAL 0.4 mg/dL (0.2-1); BLOOD UREA NITROGEN 45 mg/dL (7-18); CALCIUM 8.6 mg/dL (8.5-10.1); CHLORIDE 101 mmol/L (98-107); CO2 22 mmol/L (21-32); GLUCOSE,RANDOM 112 mg/dL (74-106); MAGNESIUM 2.3 mg/dL (1.8-2.4); PHOSPHOROUS 5.5 mg/dL (2.5-4.9); POTASSIUM 4.1 mmol/L (3.5-5.1); SGOT/AST 9 U/L (15-37); SGPT/ALT 13 U/L (13-61); SODIUM 137 mmol/L (136-145); TOT PROT 6.8 g/dl (6.4-8.2)
[2018-06-10] MEDS ORDERED: BACITRACIN 15 GM TUBE TOPICAL OINTMENT TP SCH (10:00)
[2018-06-10] MEDS ORDERED: amLODIPine BESYLATE 10 MG TABLET (FP) PO SCH (10:00)
--- NOTE | 2018-06-10 11:11 | EKG ---
Test Reason : Blood Pressure : / mmHG Vent. Rate : 066 BPM Atrial Rate : 066 BPM P-R Int : 168 ms QRS Dur : 086 ms QT Int : 448 ms P-R-T Axes : 060 014 075 degrees QTc Int : 469 ms NORMAL SINUS RHYTHM POSSIBLE LEFT ATRIAL ENLARGEMENT LEFT VENTRICULAR HYPERTROPHY NONSPECIFIC T WAVE ABNORMALITY ABNORMAL ECG WHEN COMPARED WITH ECG OF 03-APR-2017 17:55, PREVIOUS ECG HAS UNDETERMINED RHYTHM, NEEDS REVIEW NONSPECIFIC T WAVE ABNORMALITY, WORSE IN LATERAL LEADS Confirmed by JANETT COHN MD ([id number]) on 06/10/2018 11:10:58 AM Referred By: Confirmed By:JANETT COHN MD
--- NOTE | 2018-06-10 11:18 | CONSULT ---
Consult - text type - Consultation Consultation Note: Renal consult for ESRD on HD This is a 82 year old AA woman with hx of ESRD on HD via AVG, DM and hypertension presented to the ED with non-functioning AVG. Pt last had dialysis on thursday w/o complication. No SOB, CP, Abd pain, N/V/D today. Unable to get any treatment yesterday. On OR schedule for AVG thrombecotmy today. PMhx: as above Allergies: NKDA Family Hx: NC Social hx: No T/A/D ROS: As per HPI Home Medications Medication Instructions Recorded Amlodipine Besylate [Norvasc -] 10 mg PO DAILY 12/16/13 Pravastatin Sodium [Pravachol -] 40 mg PO HS 12/16/13 Hydralazine HCl 75 mg PO TID 06/09/18 Vital Signs Temperature 98.4 F 06/10/18 09:00 Pulse Rate 59 L 06/10/18 09:00 Respiratory Rate 19 06/10/18 09:00 Blood Pressure 186/65 H 06/10/18 09:00 O2 Sat by Pulse Oximetry (%) 100 06/10/18 04:26 Intake & Output 06/07/18 06/08/18 06/09/18 06/10/18 23:59 23:59 23:59 23:59 Weight 56.699 kg 56.654 kg NAD awake and alert neck supple, no JVD RRR, No M/R CTA, no rales or wheeze soft NT/ND no Le edema, clubbing or cyanosis left arm AVG, no bruit or thrill CBC, BMP 06/10/18 07:30 06/10/18 07:30 Current Medications Amlodipine Besylate (Norvasc -) 10 mg PO DAILY [facility] Last Admin: 06/10/18 10:16 Dose: 10 mg Atorvastatin Calcium (Lipitor -) 10 mg PO HS [facility] Bacitracin (Bacitracin -) 1 applic TP DAILY [facility] Last Admin: 06/10/18 10:16 Dose: 1 applic Hydralazine HCl (Apresoline -) 75 mg PO TID [facility] Last Admin: 06/10/18 05:28 Dose: 75 mg Insulin Aspart (Novolog Vial Sliding Scale -) 1 vial SQ ACHS [facility]; Protocol Last Admin: 06/10/18 06:53 Dose: Not Given 82 year old AA woman with hx of ESRD on HD via AVG, DM and hypertension presented to the ED with non-functioning AVG. #AVG thrombosis #ESRD on HD #Hypertension #DM #CKD related Anemia For thrombecotmy today by Dr. Ramon Will plan for abridged tx today following the OR BP remains very elevated, can consider addition or ARB (Losartan 50mg) Continue Amlodipine and Hydralazine Hgb is at goal, will continue LASHELL with outpatient HD Pt stable for discharge after dialysis today as long as bp is controlled Thank you Calixto Bailey DO
[2018-06-10] MEDS ORDERED: HEPARIN NA (PORCINE) 5,000 UNITS/ML 1ML VIAL ONE ×3 (12:39→15:46)
[2018-06-10] MEDS ORDERED: LIDOCAINE HCL 1%, 10 MG/ML (20ML VIAL) ONE (12:39)
[2018-06-10] MEDS ORDERED: SODIUM CHLORIDE 250 ML IV PRN ×2 (13:06→16:49)
[2018-06-10] MEDS ORDERED: LOSARTAN POTASSIUM 50 MG TABLET (FP) PO ONE (14:00)
[2018-06-10] MEDS ORDERED: HEPARIN NA (PORCINE) 5,000 UNITS/ML 1ML VIAL IVPUSH ONE ×2 (14:10→17:15)
[2018-06-10] MEDS ORDERED: DEXMEDETOMIDINE HCL 200 MCG/2 ML ML IVPB ONE (14:59)
[2018-06-10] MEDS ORDERED: PROPOFOL 20 ML ONE (15:08)
[2018-06-10] MEDS ORDERED: IOHEXOL 300 MG/ML INFUS..BTL IV ONE ×2 (15:20)
[2018-06-10] MEDS ORDERED: ceFAZolin SODIUM 1 GM VIAL IVPB ONE (15:22)
--- NOTE | 2018-06-10 16:33 | OP ---
Operative Note - Note: Operative Date: 06/10/18 Pre-Operative Diagnosis: clotted left avg Operation: venogram, suction thrombectomy, venoplasty left avg Post-Operative Diagnosis: Same as Pre-op Surgeon: Ravin Ramon Anesthesia: Fractional Estimated Blood Loss (mls): 50 Operative Report Dictated: Yes
[2018-06-10] MEDS ORDERED: ONDANSETRON 4 MG/2 ML VIAL IVPUSH PRN (16:35)
--- NOTE | 2018-06-10 17:28 | PN ---
Physical Exam: SUBJECTIVE: Patient seen and examined this morning at bedside. No new complaints. Does not experience tenderness or discomfort at the fistula site. Did not have HD today and is scheduled for OR today. Denies any fevers, chills, chest pain, SOB, nausea, vomiting, diarrhea, constipation. OBJECTIVE: Vital Signs Period Temp Pulse Resp BP Sys/Weber Pulse Ox Last 24 Hr 98.4 F-98.9 F 57-66 17-19 154-240/55-74 98-100 GENERAL: A&Ox3, NAD HEAD: NCAT EYES: PERRL, EOMI ENT: Oropharynx clear without exudates, moist mucous membranes. NECK: No JVD LUNGS: CTAB, no wheezes HEART: Regular rate and rhythm, S1, S2 without murmur. ABDOMEN: Soft, nontender, nondistended, + bowel sounds EXTREMITIES: 2+ pulses, no edema. LUE AV Fistula without palpable thrill or auscultable bruit, Nontender to palpation. NEUROLOGICAL: Cranial nerves II through XII grossly intact. Normal speech, C5- T1 gross sensation intact. 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 Laboratory Results - last 24 hr 06/09/18 06/09/18 06/09/18 20:16 20:16 20:16 WBC 8.4 RBC 3.18 L Hgb 10.6 L Hct 30.5 L MCV 95.9 MCH 33.2 MCHC 34.6 RDW 14.8 Plt Count 473 H D MPV 7.4 L Absolute Neuts (auto) 4.8 Neutrophils % 57.3 Lymphocytes % 30.4 D Monocytes % 8.3 Eosinophils % 2.6 Basophils % 1.4 Nucleated RBC % 0 Retic Count PT with INR 10.70 INR 0.91 PTT (Actin FS) 29.2 Sodium 137 Potassium 4.1 Chloride 100 Carbon Dioxide 21 Anion Gap 16 BUN 41 H Creatinine 6.4 H Creat Clearance w eGFR 6.23 POC Glucometer Random Glucose 132 H Hemoglobin A1c % Calcium 8.9 Phosphorus 5.3 H Magnesium 2.3 Ferritin Total Bilirubin 0.3 AST 10 L ALT 14 Alkaline Phosphatase 83 Troponin I Total Protein 7.1 Albumin 3.4 Blood Type Antibody Screen 06/09/18 06/09/18 06/09/18 20:16 20:16 23:15 WBC RBC Hgb Hct MCV MCH MCHC RDW Plt Count MPV Absolute Neuts (auto) Neutrophils % Lymphocytes % Monocytes % Eosinophils % Basophils % Nucleated RBC % Retic Count PT with INR INR PTT (Actin FS) Sodium Potassium Chloride Carbon Dioxide Anion Gap BUN Creatinine Creat Clearance w eGFR POC Glucometer Random Glucose Hemoglobin A1c % Calcium Phosphorus Magnesium Ferritin Total Bilirubin AST ALT Alkaline Phosphatase Troponin I < 0.02 Total Protein Albumin Blood Type O POSITIVE O POSITIVE Antibody Screen Negative 06/10/18 06/10/18 06/10/18 05:29 07:30 07:30 WBC 8.6 RBC 3.02 L Hgb 10.1 L Hct 28.8 L MCV 95.3 MCH 33.4 MCHC 35.0 RDW 14.7 Plt Count 457 H MPV 7.5 Absolute Neuts (auto) Neutrophils % Lymphocytes % Monocytes % Eosinophils % Basophils % Nucleated RBC % Retic Count PT with INR INR PTT (Actin FS) Sodium 137 Potassium 4.1 Chloride 101 Carbon Dioxide 22 Anion Gap 14 BUN 45 H Creatinine 7.0 H Creat Clearance w eGFR 5.62 POC Glucometer 137 Random Glucose 112 H Hemoglobin A1c % Calcium 8.6 Phosphorus 5.5 H Magnesium 2.3 Ferritin Total Bilirubin 0.4 AST 9 L ALT 13 Alkaline Phosphatase 82 Troponin I Total Protein 6.8 Albumin 3.3 L Blood Type Antibody Screen 06/10/18 06/10/18 06/10/18 07:30 07:30 07:30 WBC RBC Hgb Hct MCV MCH MCHC RDW Plt Count MPV Absolute Neuts (auto) Neutrophils % Lymphocytes % Monocytes % Eosinophils % Basophils % Nucleated RBC % Retic Count 1.28 PT with INR INR PTT (Actin FS) Sodium Potassium Chloride Carbon Dioxide Anion Gap BUN Creatinine Creat Clearance w eGFR POC Glucometer Random Glucose Hemoglobin A1c % 5.5 Calcium Phosphorus Magnesium Ferritin 1082.5 H Total Bilirubin AST ALT Alkaline Phosphatase Troponin I Total Protein Albumin Blood Type Antibody Screen 06/10/18 11:36 WBC RBC Hgb Hct MCV MCH MCHC RDW Plt Count MPV Absolute Neuts (auto) Neutrophils % Lymphocytes % Monocytes % Eosinophils % Basophils % Nucleated RBC % Retic Count PT with INR INR PTT (Actin FS) Sodium Potassium Chloride Carbon Dioxide Anion Gap BUN Creatinine Creat Clearance w eGFR POC Glucometer 126 Random Glucose Hemoglobin A1c % Calcium Phosphorus Magnesium Ferritin Total Bilirubin AST ALT Alkaline Phosphatase Troponin I Total Protein Albumin Blood Type Antibody Screen Active Medications Amlodipine Besylate (Norvasc -) 10 mg PO DAILY [facility] Atorvastatin Calcium (Lipitor -) 10 mg PO HS MICHELLE Bacitracin (Bacitracin -) 1 applic TP DAILY [facility] Heparin Sodium (Porcine) (Heparin -) 1,000 unit IVPUSH ONCE ONE Stop: 06/10/18 17:16 Hydralazine HCl (Apresoline -) 75 mg PO TID MICHELLE Sodium Chloride (Normal Saline -) 250 mls @ 3,000 mls/hr IV PRN PRN PRN Reason: Hypotension during Dialysis Stop: 06/11/18 13:06 Insulin Aspart (Novolog Vial Sliding Scale -) 1 vial SQ ACHS [facility]; Protocol Ondansetron HCl (Zofran Injection) 4 mg IVPUSH Q6H PRN PRN Reason: NAUSEA AND/OR VOMITING Stop: 06/11/18 16:34 IMAGING: -CXR: Improvement since prior study. No sign of infiltrate or failure. Pleural fluid not present. -LUE Duplex: There is occlusion of the graft from the level of the elbow to the lower aspect of the axilla. -EKG: NORMAL SINUS RHYTHM, POSSIBLE LEFT ATRIAL ENLARGEMENT, LEFT VENTRICULAR HYPERTROPHY, NONSPECIFIC T WAVE ABNORMALITY VR 66, QTc 469 ASSESSMENT/PLAN: 82 y/o F with PMHx of ESRD (HD MWF, last HD Thursday), HTN, DM, presents with malfunctioning AV fistula. 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 Ramon) consulted; For Thrombectomy left avg today (06/10) -Pain control as per surgery -Will encourage Incentive spirometer use #ESRD on HD MWF -Nephrology (Dr. Chely Iyer) consulted, Appreciate Rec's #Hypertensive urgency -Continue home dose Hydralazine, Norvasc -Consider ARB (Losartan 50mg) if BP remains elevated as per Nephro #Normocytic anemia -Likely ACD 2/2 to ESRD -Reticulocyte count, iron studies pending #Diabetes -ISS BGMs ACHS -A1c 5.5% #FEN -PO fluids -Monitor Lytes -Renal Diet #PPx -DVT: SCDs, TEDs b/l lower extremities Dispo: Likely dc tmrw Visit type - Emergency Visit Emergency Visit: Yes ED Registration Date: 06/09/18 Care time: The patient presented to the Emergency Department on the above date and was hospitalized for further evaluation of their emergent condition. - New Patient This patient is new to me today: Yes Date on this admission: 06/10/18 - Critical Care Critical Care patient: No - Discharge Referral Referred to [facility] Med P.C.: No
--- NOTE | 2018-06-10 19:50 | PN ---
Teaching Attending Note Name of Resident: Iram Block ATTENDING PHYSICIAN STATEMENT I saw and evaluated the patient. I reviewed the resident's note and discussed the case with the resident. I agree with the resident's findings and plan as documented. SUBJECTIVE: OBJECTIVE: Vital Signs Temperature 98.1 F 06/10/18 18:00 Pulse Rate 43 L 06/10/18 18:00 Respiratory Rate 19 06/10/18 18:00 Blood Pressure 149/55 L 06/10/18 18:00 O2 Sat by Pulse Oximetry (%) 99 06/10/18 17:40 HEENT: No Jaundice, eye redness or discharge, PERRLA, EOMI. NO papiledema. Normocephalic, atraumatic. External ears are normal and hearing is grossly intact. No nasal discharge. Neck: Supple, nontender. No palpable adenopathy or thyromegaly. No JVD Chest: Good effort. Clear to auscultation and percussion. Heart: Regular. No S3, rub or murmur Abdomen: Not distended, soft, nontender and no HSM. No rebound or guarding. Normoactive bowel sounds. Ext: Peripheral pulses intact. No leg edema. Left arm AV fistula - no bruit or thrill Skin: Warm and dry. No petechiae, rash or ecchymosis. Neuro: Alert. Oriented x3. CN 2-12 grossly intact. CBCD WBC 8.6 K/mm3 (4.0-10.0) 06/10/18 07:30 RBC 3.02 M/mm3 (3.60-5.2) L 06/10/18 07:30 Hgb 10.1 GM/dL (10.7-15.3) L 06/10/18 07:30 Hct 28.8 % (32.4-45.2) L 06/10/18 07:30 MCV 95.3 fl (80-96) 06/10/18 07:30 MCHC 35.0 g/dl (32.0-36.0) 06/10/18 07:30 RDW 14.7 % (11.6-15.6) 06/10/18 07:30 Plt Count 457 K/MM3 (134-434) H 06/10/18 07:30 MPV 7.5 fl (7.5-11.1) 06/10/18 07:30 CMP Sodium 137 mmol/L (136-145) 06/10/18 07:30 Potassium 4.1 mmol/L (3.5-5.1) 06/10/18 07:30 Chloride 101 mmol/L (98-107) 06/10/18 07:30 Carbon Dioxide 22 mmol/L (21-32) 06/10/18 07:30 Anion Gap 14 MMOL/L (8-16) 06/10/18 07:30 BUN 45 mg/dL (7-18) H 06/10/18 07:30 Creatinine 7.0 mg/dL (0.55-1.3) H 06/10/18 07:30 Creat Clearance w eGFR 5.62 (>60) 06/10/18 07:30 Random Glucose 112 mg/dL (74-106) H 06/10/18 07:30 Calcium 8.6 mg/dL (8.5-10.1) 06/10/18 07:30 Total Bilirubin 0.4 mg/dL (0.2-1) 06/10/18 07:30 AST 9 U/L (15-37) L 06/10/18 07:30 ALT 13 U/L (13-61) 06/10/18 07:30 Alkaline Phosphatase 82 U/L (45-117) 06/10/18 07:30 Total Protein 6.8 g/dl (6.4-8.2) 06/10/18 07:30 Albumin 3.3 g/dl (3.4-5.0) L 06/10/18 07:30 CARDIAC ENZYMES Troponin I < 0.02 ng/ml (0.00-0.05) 06/09/18 20:16 Current Medications Generic Name Dose Route Start Last Admin Trade Name Freq PRN Reason Stop Dose Admin Amlodipine Besylate 10 mg 06/11/18 10:00 Norvasc - PO DAILY MICHELLE Atorvastatin Calcium 10 mg 06/10/18 22:00 Lipitor - PO HS MICHELLE Bacitracin 1 applic 06/11/18 10:00 Bacitracin - TP DAILY MICHELLE Hydralazine HCl 75 mg 06/10/18 22:00 Apresoline - PO TID MICHELLE Sodium Chloride 250 mls @ 3,000 mls/hr 06/10/18 16:49 Normal Saline - IV 06/11/18 13:06 PRN PRN Hypotension during Dialysis Insulin Aspart 1 vial 06/10/18 22:00 Novolog Vial Sliding Scale - SQ ACHS MICHELLE Protocol Ondansetron HCl 4 mg 06/10/18 16:35 Zofran Injection IVPUSH 06/11/18 16:34 Q6H PRN NAUSEA AND/OR VOMITING Home Medications Medication Instructions Recorded Amlodipine Besylate [Norvasc -] 10 mg PO DAILY 12/16/13 Pravastatin Sodium [Pravachol -] 40 mg PO HS 12/16/13 Hydralazine HCl 75 mg PO TID 06/09/18 ASSESSMENT AND PLAN: #Dialysis vascular access dysfunction - Surgery consulted. Contact nephrology for thrice weekly hemodialysis. # Uncontrolled hypertension - Got IV and PO hydralazine in the ER. Will monitor closely. # Anemia - Likely mostly due to ESRD. Do serial stool guaiacs and check iron studies. Search for factors that would impair response to Procrit therapy. DVT prophylaxis - Heparin 5000u sq tid. Advance directives - Full code
[2018-06-10] MEDS: HEPARIN NA (PORCINE) 5,000 UNITS/ML 1ML VIAL IVPUSH SCH (21:17)
[2018-06-10] MEDS ORDERED: ATORVASTATIN CA 10 MG TABLET (FP) PO SCH (22:00)
[2018-06-10] MEDS: ATORVASTATIN CA 10 MG TABLET (FP) PO SCH (22:26)
[2018-06-11] MEDS ORDERED: PT OWN MED DRAWER 7, Y5N ONE (06:11)
[2018-06-11] MEDS: INSULIN SLIDING SCALE (NOVOLOG) 1 VIAL SQ SCH ×2 (06:37→21:07)
[2018-06-11] MEDS: hydrALAZINE HCL 25 MG TABLET (FP) PO SCH ×2 (06:38→21:07)
[2018-06-11 07:57] LABS: EOS % 0.6 % (0-4.5); HEMOGLOBIN 9.2 GM/dL (10.7-15.3); MCH 32.6 pg (25.7-33.7); MEAN CELL VOLUME 95.8 fl (80-96); MEAN PLT VOLUME 7.8 fl (7.5-11.1); MONO % 5.9 % (3.8-10.2); NEUT % 75.5 % (42.8-82.8); PLATELET COUNT 388 K/MM3 (134-434); RBC 2.82 M/mm3 (3.60-5.2); RDW 14.5 % (11.6-15.6); WHITE BLOOD COUNT 9.1 K/mm3 (4.0-10.0)
[2018-06-11 08:06] LABS: SERUM IRON SATURATION 36 % (15-55); TOTAL IRON BINDING CAPACITY 138 ug/dL (250-450); UIBC 89 ug/dL (118-369)
[2018-06-11 08:35] LABS: ALK PHOS 70 U/L (45-117); ANION GAP 13 MMOL/L (8-16); BILIRUBIN,TOTAL 0.4 mg/dL (0.2-1); BLOOD UREA NITROGEN 54 mg/dL (7-18); CALCIUM 8.2 mg/dL (8.5-10.1); CHLORIDE 104 mmol/L (98-107); CO2 21 mmol/L (21-32); GLUCOSE,RANDOM 124 mg/dL (74-106); MAGNESIUM 2.5 mg/dL (1.8-2.4); PHOSPHOROUS 6.9 mg/dL (2.5-4.9); POTASSIUM 4.9 mmol/L (3.5-5.1); SGOT/AST 16 U/L (15-37); SGPT/ALT 9 U/L (13-61); SODIUM 137 mmol/L (136-145); TOT PROT 6.4 g/dl (6.4-8.2)
[2018-06-11 09:40] LABS: CREATININE 8.3 mg/dL (0.55-1.3)
[2018-06-11] MEDS ORDERED: BACITRACIN 15 GM TUBE TOPICAL OINTMENT TP SCH (10:00)
--- NOTE | 2018-06-11 10:48 | PN ---
Progress Note (short form) - Note Progress Note: POD#1 Vital Signs Period Temp Pulse Resp BP Sys/Weber Pulse Ox Last 24 Hr 98 F-98.9 F 43-66 14-20 124-156/43-70 99-100 Left arm: palpable thrill, incision c/d/i, minimal swelling. 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 Ramon as an outpt
--- NOTE | 2018-06-11 11:43 | PN ---
Progress Note, Physician Chief Complaint: The patient seen in her room. Had AVG thrombectomy done last evening, but dialysis could not be given last night. Denies any chest pain, No shortness of breath. Afebrile. History of Present Illness: This is a 82 year old AA woman with hx of ESRD on HD via AVG, DM and hypertension presented to the ED with non-functioning AVG. The Patient had thrombectomy last night. No specific complaints. - Current Medication List Current Medications: Active Medications Amlodipine Besylate (Norvasc -) 10 mg PO DAILY [facility] Atorvastatin Calcium (Lipitor -) 10 mg PO HS [facility] Last Admin: 06/10/18 22:26 Dose: 10 mg Bacitracin (Bacitracin -) 1 applic TP DAILY [facility] Hydralazine HCl (Apresoline -) 75 mg PO TID [facility] Last Admin: 06/11/18 06:38 Dose: 75 mg Sodium Chloride (Normal Saline -) 250 mls @ 3,000 mls/hr IV PRN PRN PRN Reason: Hypotension during Dialysis Stop: 06/11/18 13:06 Insulin Aspart (Novolog Vial Sliding Scale -) 1 vial SQ ACHS [facility]; Protocol Last Admin: 06/11/18 06:37 Dose: Not Given Ondansetron HCl (Zofran Injection) 4 mg IVPUSH Q6H PRN PRN Reason: NAUSEA AND/OR VOMITING Stop: 06/11/18 16:34 - Objective Vital Signs: Vital Signs Temperature 98.9 F 06/11/18 06:00 Pulse Rate 66 06/11/18 06:00 Respiratory Rate 20 06/10/18 21:18 Blood Pressure 136/51 L 06/11/18 06:00 O2 Sat by Pulse Oximetry (%) 99 06/10/18 21:00 Constitutional: Yes: No Distress Eyes: Yes: Conjunctiva Clear HENT: Yes: Normocephalic Neck: Yes: Trachea Midline Cardiovascular: Yes: Regular Rate and Rhythm, Pulse Irregular, S1, S2 Respiratory: Yes: Regular, Diminished, Poor Air Entry Gastrointestinal: Yes: Normal Bowel Sounds Genitourinary: No: Hematuria Extremities: Yes: Other (AVG with bruit) Edema: No Neurological: Yes: Alert Labs: CBC, BMP 06/11/18 07:00 06/11/18 07:00 INR, PTT INR 0.91 (0.83-1.09) 06/09/18 20:16 Problem List - Problems (1) Clotted renal dialysis AV graft Code(s): T82.868A - THROMBOSIS DUE TO VASCULAR PROSTH DEV/GRFT, INIT Qualifiers: Encounter type: initial encounter Qualified Code(s): T82.868A - Thrombosis due to vascular prosthetic devices, implants and grafts, initial encounter (2) ESRD (end stage renal disease) on dialysis Code(s): N18.6 - END STAGE RENAL DISEASE; Z99.2 - DEPENDENCE ON RENAL DIALYSIS (3) Anemia in end-stage renal disease Code(s): N18.6 - END STAGE RENAL DISEASE; D63.1 - ANEMIA IN CHRONIC KIDNEY DISEASE (4) Diabetes Code(s): E11.9 - TYPE 2 DIABETES MELLITUS WITHOUT COMPLICATIONS Assessment/Plan This is a 82 year old AA woman with hx of ESRD on HD via AVG, DM and hypertension presented with non-functioning AVG. She had thrombectomy of the AVG done last night. Hemodialyis today in the Acute unit. Orders written and reviewed with the RN. The patient will come for her regular Hd at [facility] when discharged. Thank you. Chely Iyer MD
--- NOTE | 2018-06-11 13:25 | DS ---
Physical Exam: SUBJECTIVE: Patient discharged over the weekend, thus unable to perform subjective. OBJECTIVE: Vital Signs Period Temp Pulse Resp BP Sys/Weber Pulse Ox Last 24 Hr 98 F-98.9 F 43-66 14-20 124-156/43-70 98-100 PHYSICAL EXAM Patient discharged over the weekend, thus physical exam not performed by me. LABS Laboratory Last Values WBC 9.1 K/mm3 (4.0-10.0) 06/11/18 07:00 RBC 2.82 M/mm3 (3.60-5.2) L 06/11/18 07:00 Hgb 9.2 GM/dL (10.7-15.3) L 06/11/18 07:00 Hct 27.0 % (32.4-45.2) L 06/11/18 07:00 MCV 95.8 fl (80-96) 06/11/18 07:00 MCH 32.6 pg (25.7-33.7) 06/11/18 07:00 MCHC 34.0 g/dl (32.0-36.0) 06/11/18 07:00 RDW 14.5 % (11.6-15.6) 06/11/18 07:00 Plt Count 388 K/MM3 (134-434) 06/11/18 07:00 MPV 7.8 fl (7.5-11.1) 06/11/18 07:00 Absolute Neuts (auto) 6.9 K/mm3 (1.5-8.0) 06/11/18 07:00 Neutrophils % 75.5 % (42.8-82.8) D 06/11/18 07:00 Lymphocytes % 17.0 % (8-40) D 06/11/18 07:00 Monocytes % 5.9 % (3.8-10.2) 06/11/18 07:00 Eosinophils % 0.6 % (0-4.5) 06/11/18 07:00 Basophils % 1.0 % (0-2.0) 06/11/18 07:00 Nucleated RBC % 0 % (0-0) 06/11/18 07:00 Retic Count 1.28 % (0.5-1.5) 06/10/18 07:30 PT with INR 10.70 SEC (9.7-13.0) 06/09/18 20:16 INR 0.91 (0.83-1.09) 06/09/18 20:16 PTT (Actin FS) 29.2 SECONDS (25.2-36.5) 06/09/18 20:16 Sodium 137 mmol/L (136-145) 06/11/18 07:00 Potassium 4.9 mmol/L (3.5-5.1) 06/11/18 07:00 Chloride 104 mmol/L (98-107) 06/11/18 07:00 Carbon Dioxide 21 mmol/L (21-32) 06/11/18 07:00 Anion Gap 13 MMOL/L (8-16) 06/11/18 07:00 BUN 54 mg/dL (7-18) H 06/11/18 07:00 Creatinine 8.3 mg/dL (0.55-1.3) H* 06/11/18 07:00 Creat Clearance w eGFR 4.62 (>60) 06/11/18 07:00 POC Glucometer 137 UNITS (80-120) 06/11/18 06:36 Random Glucose 124 mg/dL (74-106) H 06/11/18 07:00 Hemoglobin A1c % 5.5 % (4.2-6.3) 06/10/18 07:30 Calcium 8.2 mg/dL (8.5-10.1) L 06/11/18 07:00 Phosphorus 6.9 mg/dL (2.5-4.9) H 06/11/18 07:00 Magnesium 2.5 mg/dL (1.8-2.4) H 06/11/18 07:00 Iron 49 ug/dL (27-139) 06/10/18 07:30 TIBC 138 ug/dL (250-450) L 06/10/18 07:30 Iron Saturation 36 % (15-55) 06/10/18 07:30 Transferrin 118 mg/dL (200-370) L 06/10/18 07:30 Ferritin 1082.5 ng/ml (8-388) H 06/10/18 07:30 Total Bilirubin 0.4 mg/dL (0.2-1) 06/11/18 07:00 AST 16 U/L (15-37) 06/11/18 07:00 ALT 9 U/L (13-61) L 06/11/18 07:00 Alkaline Phosphatase 70 U/L (45-117) 06/11/18 07:00 Troponin I < 0.02 ng/ml (0.00-0.05) 06/09/18 20:16 Total Protein 6.4 g/dl (6.4-8.2) 06/11/18 07:00 Albumin 3.0 g/dl (3.4-5.0) L 06/11/18 07:00 Blood Type O POSITIVE 06/09/18 23:15 Antibody Screen Negative 06/09/18 20:16 IMAGING: -CXR: Improvement since prior study. No sign of infiltrate or failure. Pleural fluid not present. -LUE Duplex: There is occlusion of the graft from the level of the elbow to the lower aspect of the axilla. -EKG: NORMAL SINUS RHYTHM, POSSIBLE LEFT ATRIAL ENLARGEMENT, LEFT VENTRICULAR HYPERTROPHY, NONSPECIFIC T WAVE ABNORMALITY VR 66, QTc 469 HOSPITAL COURSE: Date of Admission:06/09/18 Date of Discharge: 06/12/18 82 y/o F presented with malfunctioning AV fistula. Her last session of HD was the previous thursday. LUE Duplex reveal occlusion and Vascular surgery was consulted. Left AV graft venogram, suction thrombectomy and venoplasty was performed. Nephrology was consulted and patient resumed Hemodialysis the day following procedure. Patient remained afebrile without developing any pain or WBC count. Patient was found to be in Hypertensive Urgency on admission. Her BP normalized with home medications. Patient was discharged home. Discharge Summary Reason For Visit: THROMBOSIS OF KIDNEY DIALYSIS ARTERIOVENOUS GRAFT Current Active Problems Clotted renal dialysis AV graft (Acute) Hypertensive urgency (Acute) ESRD (end stage renal disease) on dialysis (Chronic) Condition: Improved - Instructions Diet, Activity, Other Instructions: You were admitted to have a clot removed from your fistula. Your blood pressure was very high on admission. Please continue to monitor your BP at home. Keep a record and give these numbers to your primary as you may need to adjust your BP Meds. Physician Follow ups 1. PCP: Dr. Chely Iyer in one week, please call to schedule follow up 2. Vascular Surgery: Dr. Ramon in 1 week, please call his office to schedule follow up Please continue all other medications as prescribed. Please return to the ER if you have any signs or symptoms of chest pain, shortness of breath, uncontrollable fever, chills, nausea, vomiting, numbness, tingling, or weakness in any part of your body, changes in vision, or slurred speech. Please return to the ER if symptoms persist, worsen, or new symptoms arise. Referrals: Chely Iyer MD [Primary Care Provider] - Ravin Ramon MD [Staff Physician] - Disposition: HOME - Home Medications Comprehensive Discharge Medication List: Ambulatory Orders Amlodipine Besylate [Norvasc -] 10 mg PO DAILY 12/16/13 Pravastatin Sodium [Pravachol -] 40 mg PO HS 12/16/13 Hydralazine HCl 75 mg PO TID 06/09/18 - Discharge Referral Referred to [facility] Med P.C.: No
--- NOTE | 2018-06-11 15:35 | PN ---
Physical Exam: SUBJECTIVE: Patient seen and examined this morning at bedside. Patient has no new complaints. Denies any pain at the incision sites. No acute overnight events as per nursing. Denies any fevers, chills, chest pain, SOB, nausea, vomiting, diarrhea, constipation. OBJECTIVE: Vital Signs Period Temp Pulse Resp BP Sys/Weber Pulse Ox Last 24 Hr 98 F-99.1 F 43-66 14-20 124-164/43-70 98-100 GENERAL: A&Ox3, NAD HEAD: NCAT EYES: PERRL, EOMI ENT: Oropharynx clear without exudates, moist mucous membranes. NECK: No JVD LUNGS: CTAB, no wheezes HEART: Regular rate and rhythm, S1, S2 without murmur. ABDOMEN: Soft, nontender, nondistended, + bowel sounds EXTREMITIES: 2+ pulses, no edema. LUE AV Fistula with auscultable bruit, Nontender to palpation. Incision sites without any active bleeding or drainage. No surrounding erythema. NEUROLOGICAL: Cranial nerves II through XII grossly intact. Normal speech, C5- T1 gross sensation intact. 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 Laboratory Results - last 24 hr 06/10/18 06/10/18 06/10/18 07:30 17:26 22:31 WBC RBC Hgb Hct MCV MCH MCHC RDW Plt Count MPV Absolute Neuts (auto) Neutrophils % Lymphocytes % Monocytes % Eosinophils % Basophils % Nucleated RBC % Sodium Potassium Chloride Carbon Dioxide Anion Gap BUN Creatinine Creat Clearance w eGFR POC Glucometer 149 166 Random Glucose Calcium Phosphorus Magnesium Iron 49 TIBC 138 L Iron Saturation 36 Transferrin 118 L Total Bilirubin AST ALT Alkaline Phosphatase Total Protein Albumin 06/11/18 06/11/18 06/11/18 06:36 07:00 07:00 WBC 9.1 RBC 2.82 L Hgb 9.2 L Hct 27.0 L MCV 95.8 MCH 32.6 MCHC 34.0 RDW 14.5 Plt Count 388 MPV 7.8 Absolute Neuts (auto) 6.9 Neutrophils % 75.5 D Lymphocytes % 17.0 D Monocytes % 5.9 Eosinophils % 0.6 Basophils % 1.0 Nucleated RBC % 0 Sodium 137 Potassium 4.9 Chloride 104 Carbon Dioxide 21 Anion Gap 13 BUN 54 H Creatinine 8.3 H* Creat Clearance w eGFR 4.62 POC Glucometer 137 Random Glucose 124 H Calcium 8.2 L Phosphorus 6.9 H Magnesium 2.5 H Iron TIBC Iron Saturation Transferrin Total Bilirubin 0.4 AST 16 ALT 9 L Alkaline Phosphatase 70 Total Protein 6.4 Albumin 3.0 L Active Medications Amlodipine Besylate (Norvasc -) 10 mg PO DAILY [facility] Atorvastatin Calcium (Lipitor -) 10 mg PO HS MICHELLE Last Admin: 06/10/18 22:26 Dose: 10 mg Bacitracin (Bacitracin -) 1 applic TP DAILY [facility] Hydralazine HCl (Apresoline -) 75 mg PO TID [facility] Last Admin: 06/11/18 06:38 Dose: 75 mg Insulin Aspart (Novolog Vial Sliding Scale -) 1 vial SQ ACHS [facility]; Protocol Last Admin: 06/11/18 06:37 Dose: Not Given Ondansetron HCl (Zofran Injection) 4 mg IVPUSH Q6H PRN PRN Reason: NAUSEA AND/OR VOMITING Stop: 06/11/18 16:34 IMAGING: -CXR: Improvement since prior study. No sign of infiltrate or failure. Pleural fluid not present. -LUE Duplex: There is occlusion of the graft from the level of the elbow to the lower aspect of the axilla. -EKG: NORMAL SINUS RHYTHM, POSSIBLE LEFT ATRIAL ENLARGEMENT, LEFT VENTRICULAR HYPERTROPHY, NONSPECIFIC T WAVE ABNORMALITY VR 66, QTc 469 ASSESSMENT/PLAN: 82 y/o F with PMHx of ESRD (HD MWF, last HD Thursday), HTN, DM, presents with malfunctioning AV fistula. #AV fistula thrombosis -S/P Left AV graft venogram, suction thrombectomy and venoplasty POD#1 -Vascular surgery (Dr. Ramon) consulted; For Thrombectomy left avg today (06/10) -Pain control as per surgery -Will encourage Incentive spirometer use #ESRD on HD MWF -Nephrology (Dr. Chely Iyer) consulted, Appreciate Rec's -For HD today #Hypertensive urgency -Continue home dose Hydralazine, Norvasc -Consider ARB (Losartan 50mg) if BP remains elevated as per Nephro #Normocytic anemia -Likely ACD 2/2 to ESRD -Reticulocyte count, iron studies pending #Hx of Diabetes -ISS BGMs ACHS -A1c 5.5% #FEN -PO fluids -Monitor Lytes -Renal Diet #PPx -DVT: SCDs, TEDs b/l lower extremities Dispo: Likely dc tmrw Visit type - Emergency Visit Emergency Visit: Yes ED Registration Date: 06/09/18 Care time: The patient presented to the Emergency Department on the above date and was hospitalized for further evaluation of their emergent condition. - New Patient This patient is new to me today: No - Critical Care Critical Care patient: No - Discharge Referral Referred to [facility] Med P.C.: No
[2018-06-11] MEDS: amLODIPine BESYLATE 10 MG TABLET (FP) PO SCH (17:23)
--- NOTE | 2018-06-11 20:27 | PN ---
Teaching Attending Note Name of Resident: Iram Block ATTENDING PHYSICIAN STATEMENT I saw and evaluated the patient. I reviewed the resident's note and discussed the case with the resident. I agree with the resident's findings and plan as documented. SUBJECTIVE: Comfortable with no acute distress. Denies any fevers, chills, chest pain, SOB, nausea, vomiting, diarrhea, constipation. OBJECTIVE: Vital Signs Temperature 98.7 F 06/11/18 15:50 Pulse Rate 64 06/11/18 19:47 Respiratory Rate 18 06/11/18 19:47 Blood Pressure 167/58 L 06/11/18 19:47 O2 Sat by Pulse Oximetry (%) 98 06/11/18 09:00 HEENT: No Jaundice, eye redness or discharge, PERRLA, EOMI. NO papiledema. Normocephalic, atraumatic. External ears are normal and hearing is grossly intact. No nasal discharge. Neck: Supple, nontender. No palpable adenopathy or thyromegaly. No JVD Chest: Good effort. Clear to auscultation and percussion. Heart: Regular. No S3, rub or murmur Abdomen: Not distended, soft, nontender and no HSM. No rebound or guarding. Normoactive bowel sounds. Ext: Peripheral pulses intact. No leg edema. Left arm AV fistula s/p thrombectomy Skin: Warm and dry. No petechiae, rash or ecchymosis. Neuro: Alert. Oriented x3. CN 2-12 grossly intact. CBCD WBC 9.1 K/mm3 (4.0-10.0) 06/11/18 07:00 RBC 2.82 M/mm3 (3.60-5.2) L 06/11/18 07:00 Hgb 9.2 GM/dL (10.7-15.3) L 06/11/18 07:00 Hct 27.0 % (32.4-45.2) L 06/11/18 07:00 MCV 95.8 fl (80-96) 06/11/18 07:00 MCHC 34.0 g/dl (32.0-36.0) 06/11/18 07:00 RDW 14.5 % (11.6-15.6) 06/11/18 07:00 Plt Count 388 K/MM3 (134-434) 06/11/18 07:00 MPV 7.8 fl (7.5-11.1) 06/11/18 07:00 CMP Sodium 137 mmol/L (136-145) 06/11/18 07:00 Potassium 4.9 mmol/L (3.5-5.1) 06/11/18 07:00 Chloride 104 mmol/L (98-107) 06/11/18 07:00 Carbon Dioxide 21 mmol/L (21-32) 06/11/18 07:00 Anion Gap 13 MMOL/L (8-16) 06/11/18 07:00 BUN 54 mg/dL (7-18) H 06/11/18 07:00 Creatinine 8.3 mg/dL (0.55-1.3) H* 06/11/18 07:00 Creat Clearance w eGFR 4.62 (>60) 06/11/18 07:00 Random Glucose 124 mg/dL (74-106) H 06/11/18 07:00 Calcium 8.2 mg/dL (8.5-10.1) L 06/11/18 07:00 Total Bilirubin 0.4 mg/dL (0.2-1) 06/11/18 07:00 AST 16 U/L (15-37) 06/11/18 07:00 ALT 9 U/L (13-61) L 06/11/18 07:00 Alkaline Phosphatase 70 U/L (45-117) 06/11/18 07:00 Total Protein 6.4 g/dl (6.4-8.2) 06/11/18 07:00 Albumin 3.0 g/dl (3.4-5.0) L 06/11/18 07:00 CARDIAC ENZYMES Troponin I < 0.02 ng/ml (0.00-0.05) 06/09/18 20:16 Current Medications Generic Name Dose Route Start Last Admin Trade Name Freq PRN Reason Stop Dose Admin Amlodipine Besylate 10 mg 06/11/18 10:00 06/11/18 17:23 Norvasc - PO 10 mg DAILY MICHELLE Administration Atorvastatin Calcium 10 mg 06/10/18 22:00 06/10/18 22:26 Lipitor - PO 10 mg HS MICHELLE Administration Bacitracin 1 applic 06/11/18 10:00 Bacitracin - TP DAILY MICHELLE Hydralazine HCl 75 mg 06/10/18 22:00 06/11/18 06:38 Apresoline - PO 75 mg TID [facility] Administration Insulin Aspart 1 vial 06/10/18 22:00 06/11/18 06:37 Novolog Vial Sliding Scale - SQ Not Given ACHS [facility] Protocol Home Medications Medication Instructions Recorded Amlodipine Besylate [Norvasc -] 10 mg PO DAILY 12/16/13 Pravastatin Sodium [Pravachol -] 40 mg PO HS 12/16/13 Hydralazine HCl 75 mg PO TID 06/09/18 ASSESSMENT AND PLAN: Patient is a 82 y/o F with PMHx of ESRD (HD MWF, last HD Thursday), HTN, DM, presents with malfunctioning AV fistula. #POD #1 s/p thrombectomy s/p venoplasty left avg access for dialysis - Surgery consulted, covering for . Nephro appreciated for hemodialysis. LUE Duplex reveals Occlusion; AV fistula thrombosis. #ESRD on HD MWF # Uncontrolled hypertension - Got IV and PO hydralazine in the ER. On Hydralazine 75mg po tid ,and amlodipine 10mg po daily continue. If stays elevated ARB(losartan 50mg op daily to be added) as per nephro. # Anemia - Likely mostly due to ESRD.negative stool guaiac #T2DM: ISS BGMs ACHS. Hmg A1c :5.5% DVT prophylaxis - Heparin 5000u sq tid. Advance directives - Full code
[2018-06-11] MEDS ORDERED: INSULIN (NOVOLOG) ASPART 100 UNITS/ML 10ML VIAL ONE (21:06)
[2018-06-11] MEDS: ATORVASTATIN CA 10 MG TABLET (FP) PO SCH (21:07)
[2018-06-12] MEDS: INSULIN SLIDING SCALE (NOVOLOG) 1 VIAL SQ SCH ×4 (06:25→16:52)
[2018-06-12] MEDS: hydrALAZINE HCL 25 MG TABLET (FP) PO SCH ×2 (06:25→14:27)
[2018-06-12] MEDS: amLODIPine BESYLATE 10 MG TABLET (FP) PO SCH (09:47)
--- NOTE | 2018-06-12 10:28 | PN ---
Progress Note, Physician Chief Complaint: The patient seen in her room. Daughter with her. Had AVG thrombectomy and HD. AVG w/ good bruit. Denies any chest pain, No shortness of breath. Afebrile. History of Present Illness: This is a 82 year old AA woman with hx of ESRD on HD via AVG, DM and hypertension presented with non-functioning AVG. The patient had Thrombectomy and HD. - Current Medication List Current Medications: Active Medications Amlodipine Besylate (Norvasc -) 10 mg PO DAILY [facility] Last Admin: 06/12/18 09:47 Dose: 10 mg Atorvastatin Calcium (Lipitor -) 10 mg PO HS MICHELLE Last Admin: 06/11/18 21:07 Dose: 10 mg Bacitracin (Bacitracin -) 1 applic TP DAILY [facility] Hydralazine HCl (Apresoline -) 75 mg PO TID [facility] Last Admin: 06/12/18 06:25 Dose: 75 mg Insulin Aspart (Novolog Vial Sliding Scale -) 1 vial SQ ACHS [facility]; Protocol Last Admin: 06/12/18 06:25 Dose: Not Given - Objective Vital Signs: Vital Signs Temperature 98.6 F 06/12/18 02:00 Pulse Rate 68 06/12/18 02:00 Respiratory Rate 20 06/12/18 02:00 Blood Pressure 156/62 06/12/18 02:00 O2 Sat by Pulse Oximetry (%) 98 06/11/18 21:00 Constitutional: Yes: Well Nourished Eyes: Yes: WNL HENT: Yes: WNL, Atraumatic Neck: Yes: Supple Cardiovascular: Yes: S1, S2 Respiratory: Yes: Regular, CTA Bilaterally Gastrointestinal: Yes: Normal Bowel Sounds, Soft Genitourinary: No: CVA Tenderness - Left, CVA Tenderness - Right Musculoskeletal: Yes: WNL Edema: No Neurological: Yes: WNL, Alert, Oriented Labs: CBC, BMP 06/11/18 07:00 06/11/18 07:00 INR, PTT INR 0.91 (0.83-1.09) 06/09/18 20:16 Problem List - Problems (1) Clotted renal dialysis AV graft Code(s): T82.868A - THROMBOSIS DUE TO VASCULAR PROSTH DEV/GRFT, INIT Qualifiers: Encounter type: initial encounter Qualified Code(s): T82.868A - Thrombosis due to vascular prosthetic devices, implants and grafts, initial encounter (2) ESRD (end stage renal disease) on dialysis Code(s): N18.6 - END STAGE RENAL DISEASE; Z99.2 - DEPENDENCE ON RENAL DIALYSIS (3) Anemia in end-stage renal disease Code(s): N18.6 - END STAGE RENAL DISEASE; D63.1 - ANEMIA IN CHRONIC KIDNEY DISEASE (4) Diabetes Code(s): E11.9 - TYPE 2 DIABETES MELLITUS WITHOUT COMPLICATIONS Assessment/Plan This is a 82 year old AA woman with hx of ESRD on HD via AVG, DM and hypertension presented with non-functioning AVG. She had thrombectomy of the AVG. She had HD yesterday...uneventful. The patient will come for her regular HD at [facility] on Thursday if discharged. Thank you. Chely Iyer MD
[2018-06-12] MEDS ORDERED: INSULIN (NOVOLOG) ASPART 100 UNITS/ML 10ML VIAL ONE (11:40)
--- NOTE | 2018-06-12 11:59 | DS ---
Physical Exam: SUBJECTIVE: Patient seen and examined at bed side , denies any fever, chills , N /V/D/C , feeling better , ready to go home , tolerated HD with no complication. OBJECTIVE: Vital Signs Period Temp Pulse Resp BP Sys/Weber Pulse Ox Last 24 Hr 98.4 F-99.1 F 54-75 18-20 156-206/49-87 98 PHYSICAL EXAM GENERAL: AAOx3, NAD HEAD: NCAT EYES: PERRL, EOMI, sclera anicteric ENT: Oropharynx clear without exudates, moist mucous membranes. NECK: supple , FROM LUNGS: CTAB, no wheezes HEART: RRR, S1, S2 without murmur. ABDOMEN: Soft, ND/NT, + bowel sounds EXTREMITIES: 2+ pulses, no edema. LUE AV Fistula with auscultable bruit, Nontender to palpation. Incision sites without any active bleeding or drainage. No surrounding erythema. NEUROLOGICAL:no focal deficit , Normal speech, LABS Laboratory Results - last 24 hr 06/11/18 06/12/18 06/12/18 21:04 06:25 11:35 POC Glucometer 237 114 161 CBC, BMP 06/11/18 07:00 06/11/18 07:00 Active Medications Amlodipine Besylate (Norvasc -) 10 mg PO DAILY [facility] Atorvastatin Calcium (Lipitor -) 10 mg PO HS [facility] Last Admin: 06/10/18 22:26 Dose: 10 mg Bacitracin (Bacitracin -) 1 applic TP DAILY [facility] Hydralazine HCl (Apresoline -) 75 mg PO TID [facility] Last Admin: 06/11/18 06:38 Dose: 75 mg Insulin Aspart (Novolog Vial Sliding Scale -) 1 vial SQ [facility]; Protocol Last Admin: 06/11/18 06:37 Dose: Not Given Ondansetron HCl (Zofran Injection) 4 mg IVPUSH Q6H PRN PRN Reason: NAUSEA AND/OR VOMITING Stop: 06/11/18 16:34 IMAGING: -CXR: Improvement since prior study. No sign of infiltrate or failure. Pleural fluid not present. -LUE Duplex: There is occlusion of the graft from the level of the elbow to the lower aspect of the axilla. -EKG: NORMAL SINUS RHYTHM, POSSIBLE LEFT ATRIAL ENLARGEMENT, LEFT VENTRICULAR HYPERTROPHY, NONSPECIFIC T WAVE ABNORMALITY VR 66, QTc 469 HOSPITAL COURSE: Date of Admission:06/09/18 Date of Discharge: 06/12/18 82 y/o F with PMHx of ESRD (HD MWF, last HD Thursday), HTN, DM, presents with thrombosis in AV fistula.S/P Left AV graft venogram, suction thrombectomy and venoplasty 06/[address] Ramon vascular surgeon .in term of ESRD on HD MWF,Nephrology Dr. Chely Iyer consulted, Appreciate , pt tolerated HD with no complications. pt also presented with Hypertensive urgency on day of admission and was treated with hydralyzine and Norvasc pt need to monitor her BP closely and follow up with her PCP , will consider ARB (Losartan 50mg) if BP remains elevated as per Nephro. pt will marry ue HD as out pt and follow up with her PCP for the chronic anemia , A1c during this visit was 5.5. Minutes to complete discharge: 45 Discharge Summary Reason For Visit: THROMBOSIS OF KIDNEY DIALYSIS ARTERIOVENOUS GRAFT Current Active Problems ESRD (end stage renal disease) on dialysis (Chronic) Condition: Improved - Instructions Diet, Activity, Other Instructions: You were admitted to have a clot removed from your fistula. Your blood pressure was very high on admission. Please continue to monitor your BP at home. Keep a record and give these numbers to your primary as you may need to adjust your BP Meds. Physician Follow ups 1. PCP: Dr. Chely Iyer in one week, please call to schedule follow up 2. Vascular Surgery: Dr. Ramon in 1 week, please call his office to schedule follow up Please continue all other medications as prescribed. Please return to the ER if you have any signs or symptoms of chest pain, shortness of breath, uncontrollable fever, chills, nausea, vomiting, numbness, tingling, or weakness in any part of your body, changes in vision, or slurred speech. Please return to the ER if symptoms persist, worsen, or new symptoms arise. Referrals: Chely Iyer MD [Primary Care Provider] - 1 Week Ravin Ramon MD [Staff Physician] - 1 Week Disposition: HOME - Home Medications Comprehensive Discharge Medication List: Ambulatory Orders Amlodipine Besylate [Norvasc -] 10 mg PO DAILY 12/16/13 Pravastatin Sodium [Pravachol -] 40 mg PO HS 12/16/13 Hydralazine HCl 75 mg PO TID 06/09/18 This patient is new to me today: No Emergency Visit: No Critical Care patient: No - Discharge Referral Referred to [facility] No
[2018-06-12 14:33] VITALS: BP 135/52; PULSE 88; TEMP 99.1
--- NOTE | 2018-06-14 15:50 | CONSULT ---
Consult Consult Specialty:: Nephrology Reason for Consultation:: ESRD...on HD - History of Present Illness History of Present Illness: This is a 82 year old AA woman with hx of ESRD on HD via AVG, DM and hypertension came to ER with excruciating pain in the heels. Patient's last HD three days ago. 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: CVA Cardio/Vascular: Yes: HTN Renal/: Yes: Renal Failure, Hemodialysis ...: No - Alcohol/Substance Use Hx Alcohol Use: No - Smoking History Smoking history: Never smoked Home Medications - Allergies Allergies/Adverse Reactions: Allergies Allergy/AdvReac Type Severity Reaction Status Date / Time No Known Allergies Allergy Verified 06/09/18 17:16 - Home Medications Home Medications: Ambulatory Orders Amlodipine Besylate [Norvasc -] 10 mg PO DAILY 12/16/13 Pravastatin Sodium [Pravachol -] 40 mg PO HS 12/16/13 Hydralazine HCl 75 mg PO TID 06/09/18 Review of Systems - Review of Systems Constitutional: reports: Weakness Eyes: reports: No Symptoms HENT: reports: No Symptoms Neck: reports: No Symptoms Cardiovascular: denies: Chest Pain Respiratory: reports: No Symptoms Gastrointestinal: reports: No Symptoms Neurological: reports: No Symptoms Physical Exam Vital Signs: Vital Signs Temperature 99.1 F 06/12/18 14:32 Pulse Rate 88 06/12/18 14:32 Respiratory Rate 20 06/12/18 11:17 Blood Pressure 135/52 L 06/12/18 14:32 O2 Sat by Pulse Oximetry (%) 98 06/11/18 21:00 Constitutional: Yes: Mild Distress, Thin Eyes: Yes: WNL HENT: Yes: WNL Neck: Yes: WNL Cardiovascular: Yes: Regular Rate and Rhythm, S1, S2 Respiratory: Yes: Regular Gastrointestinal: Yes: Normal Bowel Sounds, Soft Renal/: No: CVA Tenderness - Left, CVA Tenderness - Right Extremities: Yes: Cold, Other (bullous lesions at the heel, pregangrenous. ? 2/ 2 pressure) Neurological: Yes: Alert Labs: CBC, BMP 06/11/18 07:00 06/11/18 07:00 Problem List - Problems (1) ESRD (end stage renal disease) on dialysis Code(s): N18.6 - END STAGE RENAL DISEASE; Z99.2 - DEPENDENCE ON RENAL DIALYSIS (2) Anemia in end-stage renal disease Code(s): N18.6 - END STAGE RENAL DISEASE; D63.1 - ANEMIA IN CHRONIC KIDNEY DISEASE (3) Diabetes Code(s): E11.9 - TYPE 2 DIABETES MELLITUS WITHOUT COMPLICATIONS (4) Heel blister Code(s): S90.829A - BLISTER (NONTHERMAL), UNSPECIFIED FOOT, INITIAL ENCOUNTER Assessment/Plan This is a 82 year old AA woman with hx of ESRD on HD via AVG, DM and hypertension presented with blisters of the heel, extremely painful. She had thrombectomy of the AVG. She had HD yesterday...uneventful. Surgical/ Podiatry evaluation in progress. The AVF working well. Will schedule for HD in the Acute unit. Orders reviewed with the RN. Thank you. Chely Iyer MD
[2018-06-14] MEDS ORDERED: EPOETIN ALFA 10,000 UNIT/1 ML VIAL SQ ONE (16:30)
[2018-06-15 00:06] LABS: HBSAG SCREEN Negative (Negative); HEP A AB, IGM Negative (Negative); HEP B CORE AB, TOT Negative (Negative)
--- NOTE | 2018-06-15 08:54 | PN ---
Teaching Attending Note Name of Resident: Teodoro Reyesjoshua ATTENDING PHYSICIAN STATEMENT I saw and evaluated the patient. I reviewed the resident's note and discussed the case with the resident. I agree with the resident's findings and plan as documented. SUBJECTIVE: Patient is comfortable, no acute distress. OBJECTIVE: Vital Signs Temperature 99.1 F 06/12/18 14:32 Pulse Rate 88 06/12/18 14:32 Respiratory Rate 20 06/12/18 11:17 Blood Pressure 135/52 L 06/12/18 14:32 O2 Sat by Pulse Oximetry (%) 98 06/11/18 21:00 HEENT: No Jaundice, eye redness or discharge, PERRLA, EOMI. No papiledema. Normocephalic, atraumatic. External ears are normal and hearing is grossly intact. Neck: Supple, nontender. No palpable adenopathy or thyromegaly. No JVD Chest: Good effort. Clear to auscultation and percussion. Heart: Regular. No S3, rub or murmur Abdomen: Not distended, soft, nontender and no HSM. No rebound or guarding. Ext: Peripheral pulses intact. No leg edema. Left arm AV fistula s/p thrombectomy Skin: Warm and dry. No petechiae, rash or ecchymosis. Neuro: Alert. Oriented x3. CN 2-12 grossly intact. CBCD WBC 9.1 K/mm3 (4.0-10.0) 06/11/18 07:00 RBC 2.82 M/mm3 (3.60-5.2) L 06/11/18 07:00 Hgb 9.2 GM/dL (10.7-15.3) L 06/11/18 07:00 Hct 27.0 % (32.4-45.2) L 06/11/18 07:00 MCV 95.8 fl (80-96) 06/11/18 07:00 MCHC 34.0 g/dl (32.0-36.0) 06/11/18 07:00 RDW 14.5 % (11.6-15.6) 06/11/18 07:00 Plt Count 388 K/MM3 (134-434) 06/11/18 07:00 MPV 7.8 fl (7.5-11.1) 06/11/18 07:00 CMP Sodium 137 mmol/L (136-145) 06/11/18 07:00 Potassium 4.9 mmol/L (3.5-5.1) 06/11/18 07:00 Chloride 104 mmol/L (98-107) 06/11/18 07:00 Carbon Dioxide 21 mmol/L (21-32) 06/11/18 07:00 Anion Gap 13 MMOL/L (8-16) 06/11/18 07:00 BUN 54 mg/dL (7-18) H 06/11/18 07:00 Creatinine 8.3 mg/dL (0.55-1.3) H* 06/11/18 07:00 Creat Clearance w eGFR 4.62 (>60) 06/11/18 07:00 Random Glucose 124 mg/dL (74-106) H 06/11/18 07:00 Calcium 8.2 mg/dL (8.5-10.1) L 06/11/18 07:00 Total Bilirubin 0.4 mg/dL (0.2-1) 06/11/18 07:00 AST 16 U/L (15-37) 06/11/18 07:00 ALT 9 U/L (13-61) L 06/11/18 07:00 Alkaline Phosphatase 70 U/L (45-117) 06/11/18 07:00 Total Protein 6.4 g/dl (6.4-8.2) 06/11/18 07:00 Albumin 3.0 g/dl (3.4-5.0) L 06/11/18 07:00 CARDIAC ENZYMES Troponin I < 0.02 ng/ml (0.00-0.05) 06/09/18 20:16 Home Medications Medication Instructions Recorded Amlodipine Besylate [Norvasc -] 10 mg PO DAILY 12/16/13 Pravastatin Sodium [Pravachol -] 40 mg PO HS 12/16/13 Hydralazine HCl 75 mg PO TID 06/09/18 ASSESSMENT AND PLAN: Patient is a 82 y/o F with PMHx of ESRD (HD MWF, last HD Thursday), HTN, DM, presents with malfunctioning AV fistula. #POD #2 s/p thrombectomy s/p venoplasty left avg access for dialysis - Surgery consulted, covering for . Nephro appreciated for hemodialysis. LUE Duplex reveals Occlusion; AV fistula thrombosis.follow up with the surgeon. #ESRD on HD MWF # Uncontrolled hypertension - Got IV and PO hydralazine in the ER. On Hydralazine 75mg po tid ,and amlodipine 10mg po daily continue. If stays elevated ARB(losartan 50mg op daily to be added) as per nephro. # Anemia - Likely mostly due to ESRD.negative stool guaiac #T2DM: ISS BGMs ACHS. Hmg A1c :5.5% DVT prophylaxis - Heparin 5000u sq tid. Advance directives - Full code
--- NOTE | 2018-06-17 13:56 | OP ---
DATE OF OPERATION: 06/10/2018 PREOPERATIVE DIAGNOSIS: Clotted left arteriovenous graft. POSTOPERATIVE DIAGNOSIS: Clotted left arteriovenous graft. PROCEDURE: Venogram, suction thrombectomy, venoplasty, left arteriovenous graft. SURGEON: Ravin Desai MD ANESTHESIA: Fractional. BLOOD LOSS: 20 mL. INDICATIONS: The patient is an 82-year-old female who comes in with a clotted left AV graft. She had gone to dialysis the day before, and they could not cannulate the graft. Patient was seen in the hospital, and then consented for the procedure understanding all risks, benefits, and alternatives. DESCRIPTION OF PROCEDURE: Patient was then brought into the operating room, laid on the operating table in the supine manner, and the area of the left arm was prepped and draped in a sterile surgical manner. We went ahead and then injected 5 mL of lidocaine 1% at the proximal AV graft. We went ahead and punctured the left AV graft with a micropuncture needle. Micropuncture wire was inserted, micropuncture sheath was inserted, and a traditional short 6-[place]oz[place] sheath was inserted. We then shot a venogram of the access showing that the graft was clotted. We then went ahead and placed a 0.035-floppy guidewire through the graft and into the central veins. We then used an AVX suction thrombectomy catheter and performed suction thrombectomy of the proximal AV graft in the entirety of the graft going all the way up into the central veins. Completion venogram now showed that the graft was patent, but there was a severe stenosis at the venous anastomosis. At this point, we administered 3000 units of IV heparin to the patient. At this point, we then went ahead and used an 8 x 8 Arco balloon and performed venoplasty of the outflow vein and the entire AV graft. We then went ahead and injected 10 mL of lidocaine 1% at the distal AV graft. We then used our micropuncture needle and punctured the graft towards the arterial anastomosis and a short 6-[place] sheath was placed. We then placed a 0.035-floppy guidewire into the proximal graft and into the brachial artery. We then used our AVX suction thrombectomy catheter and peformed suction thrombectomy of the proximal AV graft. We then went ahead and used the 7 x 4 balloon and performed venoplasty of the proximal AV graft and the arterial anastomosis. Thereafter, there was a good thrill in our AV graft. Completion venogram showed that the graft was patent, the anastomosis was patent. There was no recoil of the venoplasty, and there was good flow to the central veins. At this point, we used a 4-0 Biosyn stitch, and a figure-of-8 stitch was placed around each sheath, and the sheaths were pulled. Area was wet and dried, and Dermabond was placed. The patient tolerated the procedure with no complications. Patient transferred to PACU in stable condition. RAVIN DESAI DO [id number]
== END 2018-06-12 16:41 | disposition home or self-care (01) | DRG 252 ==
LOC: JER 16:42 → JERBED 21:59 → J6S 06-10 02:50
PROVIDERS: ADMIT Internal Medicine; ATTEND Internal Medicine
PROC: 03783ZZ Dilation of Left Brachial Artery, Percutaneous Approach (ICD-10-PCS; 2018-06-10)
PROC: 05CY3ZZ Extirpation of Matter from Upper Vein, Percutaneous Approach (ICD-10-PCS; 2018-06-10)
PROC: 03763ZZ Dilation of Left Axillary Artery, Percutaneous Approach (ICD-10-PCS; principal; 2018-06-10 15:30)
PROC: 5A1D70Z Performance of Urinary Filtration, Intermittent, Less than 6 Hours Per Day (ICD-10-PCS; 2018-06-11)
DX: T82.868A Thrombosis due to vascular prosthetic devices, implants and grafts, initial encounter (principal); N18.6 End stage renal disease; I12.0 Hypertensive chronic kidney disease with stage 5 chronic kidney disease or end stage renal disease; Y83.8 Other surgical procedures as the cause of abnormal reaction of the patient, or of later complication, without mention of misadventure at the time of the procedure; D63.1 Anemia in chronic kidney disease; E11.22 Type 2 diabetes mellitus with diabetic chronic kidney disease; I16.0 Hypertensive urgency
CPT/HCPCS: 36415; 71045-TC-FY; 80053; 82728; 82962; 83036; 83540; 83550; 83735; 84100; 84466; 84484; 85025; 85027; 85044; 85610; 85730; 86704; 86706; 86708; 86803; 86850; 86900; 86901; 87340; 93005; 93010; 93971; 94760; 97116-GP; 97161-GP; 99285-25; J1644

== ENCOUNTER 2018-06-14 11:56 | Observation (INO) | payer OTHER, MEDICARE ==
--- NOTE | 2018-06-14 13:05 | PDOC ---
History of Present Illness - General Chief Complaint: Pain Stated Complaint: FOOT PAIN Time Seen by Provider: 06/14/18 13:04 History Source: Patient, Family (Daughter was present for interview.), Old Records Exam Limitations: No Limitations - History of Present Illness Initial Comments: 82 y/o female presenting to [facility] ER via private auto complaining of left heel pain since Thursday. Pt is a poor historian and only provides vague responses to questions. States her heel is sick and that the pain runs up her leg. Daughter , who has recently become pts primary caregiver, is also present for interview. She states her mother began complaining of pain after removing the hospital compression socks. Expressed concern that the pt may have an infection. Pt is a diabetic but no longer takes controlling medications. No history of chronic wounds. Pt is ESRD on hemodialysis M,W,F. Last on Thursday (11 Jun 2018). Scheduled today at 15:00. Pt was discharged from this facility on 12 Jun 2018 for AV fistula thrombectomy. PCP: Chely Iyer Medical Hx: - ESRD on HD - Diabetes - HTN Surgical Hx: - AV Fistula, L arm - Hysterectomy Past History - Past Medical History Allergies/Adverse Reactions: Allergies Allergy/AdvReac Type Severity Reaction Status Date / Time No Known Allergies Allergy Verified 06/09/18 17:16 Home Medications: Ambulatory Orders Amlodipine Besylate [Norvasc -] 10 mg PO DAILY 12/16/13 Pravastatin Sodium [Pravachol -] 40 mg PO HS 12/16/13 Hydralazine HCl 75 mg PO TID 06/09/18 COPD: No Diabetes: Yes Dialysis: Yes (m/w/f) HTN: Yes Hypercholesterolemia: Yes - Immunization History Immunization Up to Date: No - Suicide/Smoking/Psychosocial Hx Smoking History: Unknown if ever smoked Hx Alcohol Use: No Drug/Substance Use Hx: No Substance Use Type: None Review of Systems - Review of Systems Able to Perform ROS?: Yes Comments:: In addition to that documented in the HPI above, the additional ROS was obtained : Constitutional: Denies fevers or chills Eyes: Denies vision changes ENMT: Denies sore throat CV: Denies chest pain Resp: Denies SOB GI: Denies vomiting or diarrhea *Physical Exam - Vital Signs Last Vital Signs Temp Pulse Resp BP Pulse Ox 98.5 F 68 18 156/56 L 99 06/14/18 12:28 06/14/18 12:28 06/14/18 12:28 06/14/18 12:28 06/14/18 12:28 - Physical Exam Comments: Constitutional: Well-developed, well-nourished, thin female in no acute distress. Found semi-fowlers in hospital bed. Alert and oriented x4. Speech was non-labored, non-pressured. HEENT: Normocephalic. No obvious external signs of trauma. Hearing grossly normal. No nasal discharge. Neck is supple. Cardiovascular: Regular rate and regular rhythm. AV fistula systolic flow murmur. Peripheral pulses: Radial pulses full. Respiratory: Breathing unlabored. Equal chest rise and fall. Clear to auscultation bilaterally. No stridor, no wheezing, no rhonchi. Neuro: Alert and oriented. Moving all four extremities spontaneously. Lower extremities: proximal and distal strength 5/5, lathe mechanic strength 5/5 - equal and symmetric. Plantar flexion and dorsiflexion 5/5. Dull sensation to pinprick noted dorsum of both feet when compared to hand and chest. Skin/MSK: Subjective point tenderness to left heel. Possible erythema and warmth to area without streaking or obvious wound. Globally, skin is warm, dry, and intact. Psych: Affect: appropriate. Mood: normal. ED Treatment Course - LABORATORY CBC & Chemistry Diagram: 06/15/18 06:20 06/15/18 06:20 Medical Decision Making - Medical Decision Making *Reviewed vital signs, nursing notes, and prior visit documentation (if available). 82 y/o diabetic female with ESRD on HD complaining of left heel pain. Afebrile. Vitals unremarkable for hypotension or tachycardia. Physical exam as described above. D/D includes but not limited to cellulitis, diabetic neuropathy, bony fracture. Will obtain CBC, BMP, and plain films of left foot and heel. CBC unremarkable for anemia or leukocytosis. BMP revealed mild hyponatremia and hypochloremia. Suspect secondary to ESRD and not clinically significant to chief complaint. Dr. Iyer, pts PCP, stopped by to check on patient. Expressed concern for more serious soft tissue infection and recommended hospital admission for IV antibiotics. 15:31 Return telephone call with Dr. Iyer. Stated he would arrange for dialysis today. Hold Zosyn until after run. 15:59 Telephone consult with resident Dr. Quinn. Discussed HPI, ED course, and current plan of management. Agreed to admit pt to med/surg on inpatient status for Dr. Horan. *DC/Admit/Observation/Transfer Diagnosis at time of Disposition: Cellulitis of left foot excluding toes - Discharge Dispostion Condition at time of disposition: Stable Decision to Admit order: Yes - Referrals - Patient Instructions - Post Discharge Activity
[2018-06-14 14:23] LABS: BASO % 2.4 % (0-2.0); HEMATOCRIT 33.5 % (32.4-45.2); HEMOGLOBIN 11.4 GM/dL (10.7-15.3); LYMPH % 18.4 % (8-40); MCHC 33.9 g/dl (32.0-36.0); MEAN CELL VOLUME 97.3 fl (80-96); NEUT % 70.2 % (42.8-82.8); PLATELET COUNT 465 K/MM3 (134-434); RBC 3.45 M/mm3 (3.60-5.2); RDW 14.3 % (11.6-15.6)
--- NOTE | 2018-06-14 14:28 | PDOC ---
Attending Attestation - HPI HPI: 06/14/18 15:03 This patient is an 82 year old female with a significant past medical history of HTN, DM and ESRD on Dialysis MWF who presents to the emergency department with bilateral heel pain radiating up her legs bilaterally. - Physicial Exam PE: 06/14/18 15:03 Vitals: Triage vital signs reviewed General Appearance: No acute distress, well nourished, well developed Head: Atraumatic Eyes: Pupils equal reactive round, extraocular movement intact Neck: Supple; No nuchal rigidity Chest Wall: Nontender Cardiac: Regular rate and rhythm, no murmurs, no rubs, no gallops Lungs: Clear to auscultation bilateral, good air movement bilaterally Abdomen: Soft, nondistended, normal bowel sounds, nontender to palpation Extremities: (+) Ttp to the base of left heel, slightly warm to touch. Full range of motion to all extremities, no cyanosis, clubbing, or edema Skin: Warm and dry, no rashes or lesions, no rash, no petechiae Neuro: AOX3; Cranial Nerves 2-12 grossly intact, Strength intact to all extremities, Sensation intact to all extremities, gait normal Psych: Normal mood, normal affect - Medical Decision Making 06/14/18 15:03 Documentation prepared by Alba Curry, acting as medical examiner for Boby Medrano MD <Alba Curry - Last Filed: 06/14/18 15:03> - Resident Resident Name: Wilmer Bell - ED Attending Attestation I have performed the following: I have examined & evaluated the patient, The case was reviewed & discussed with the resident, I agree w/resident's findings & plan, Exceptions are as noted - Medical Decision Making Heel severely tender to palpation warm to touch slightly boggy consistent with he'll cellulitis Given end-stage renal disease and diabetes we'll admit to medicine for IV antibiotics and further management. <Boby Medrano - Last Filed: 06/14/18 15:23>
[2018-06-14 14:49] LABS: ANION GAP 12 MMOL/L (8-16); BLOOD UREA NITROGEN 38 mg/dL (7-18); CALCIUM 8.9 mg/dL (8.5-10.1); CHLORIDE 96 mmol/L (98-107); CO2 27 mmol/L (21-32); GLUCOSE,RANDOM 186 mg/dL (74-106); POTASSIUM 4.6 mmol/L (3.5-5.1); SODIUM 135 mmol/L (136-145)
[2018-06-14 15:01] LABS: CREATININE 7.9 mg/dL (0.55-1.3)
[2018-06-14] MEDS ORDERED: VANCOMYCIN 1,000 MG in DEXTROSE 5%-WATER - 250 ML IVPB ONE (15:19)
[2018-06-14] MEDS: PIPERACILLIN/TAZOB 3.375 GM 3.375 GM in DEXTROSE 5%-WATER - 50 ML IVPB ONE ×2 (15:58→20:33)
[2018-06-14] MEDS ORDERED: VANCOMYCIN 1 GRAM (PRE-DOCKED) 1,000 MG/250 ML BAG IVPB ONE (15:59)
[2018-06-14] MEDS ORDERED: PIPERACILLIN/TAZOB 3.375 GM 3.375 GM/50 ML BAG IVPB ONE (15:59)
--- NOTE | 2018-06-14 16:57 | HP ---
CHIEF COMPLAINT: L heel pain PCP: Chely Arnold, nephrology. Pt has recently begun transfer of care from her previous medical team in [place] up to [place]. HISTORY OF PRESENT ILLNESS: Note that pt is a somewhat poor historian often giving ambiguous answers to direct questions. She is accompanied at bedside by her daughter who aided in providing history. 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 She was recently discharged from this facility on 06/12/2018 after being admitted for treatment of an occluded AV fistula (several episodes in the past). After going home, daughter states she was removing the pt's compression stockings (daughter and patient are unclear as to why pt was told to wear compression stockings), she noticed pt grimace in pain. Pt then admitted to having lots of pain of the left heel. Pt admits to pain of the left heel on weight bearing or with pressure. Pain began yesterday, is nonradiating. Pt's daughter has not noted any redness, swelling, wound, or drainage. Pt and daughter deny any fever, chills, sob, cp, nausea, vomiting, diarrhea. Last HD session was Thursday. ER course was notable for: (1) vital signs within normal limits. 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 (per daughter), and diet- controlled DM (daughter states she has not needed medication since beginning HD) PAST SURGICAL HISTORY: LUE av fistula Social History: Smoking: denies Alcohol: denies Drugs: denies Family History: denies Allergies No Known Allergies Allergy (Verified 06/09/18 17:16) HOME MEDICATIONS: Home Medications Medication Instructions Recorded Amlodipine Besylate [Norvasc -] 10 mg PO DAILY 12/16/13 Pravastatin Sodium [Pravachol -] 40 mg PO HS 12/16/13 Hydralazine HCl 75 mg PO TID 06/09/18 REVIEW OF SYSTEMS limited by pt response CONSTITUTIONAL: Absent: fever, chills, diaphoresis, generalized weakness, malaise, loss of appetite, weight change HEENT: Absent: rhinorrhea, nasal congestion, throat pain, throat swelling, difficulty swallowing, mouth swelling, ear pain, eye pain, visual changes CARDIOVASCULAR: Absent: chest pain, syncope, palpitations, irregular heart rate, lightheadedness , peripheral edema RESPIRATORY: Absent: cough, shortness of breath, dyspnea with exertion, orthopnea, wheezing, stridor, hemoptysis GASTROINTESTINAL: Absent: abdominal pain, abdominal distension, nausea, vomiting, diarrhea, constipation, melena, hematochezia GENITOURINARY: Absent: dysuria, frequency, urgency, hesitancy, hematuria, flank pain, genital pain MUSCULOSKELETAL: L heel pain Absent: myalgia, arthralgia, joint swelling, back pain, neck pain SKIN: Absent: rash, itching, pallor HEMATOLOGIC/IMMUNOLOGIC: Absent: easy bleeding, easy bruising, lymphadenopathy, frequent infections ENDOCRINE: Absent: unexplained weight gain, unexplained weight loss, heat intolerance, cold intolerance NEUROLOGIC: Absent: headache, focal weakness or paresthesias, dizziness, unsteady gait, seizure, mental status changes, bladder or bowel incontinence PSYCHIATRIC: Absent: anxiety, depression, suicidal or homicidal ideation, hallucinations. PHYSICAL EXAMINATION Vital Signs - 24 hr 06/14/18 12:28 Temperature 98.5 F Pulse Rate 68 Respiratory 18 Rate Blood Pressure 156/56 L O2 Sat by Pulse 99 Oximetry (%) GEN: NAD, resting in bed HEENT: NCAT, PERRL, EOMI. Jaw tremor Neck: supple, no jvd Cardio: rrr with extrasystoles, normal s1s2, midsystolic murmur radiating from L av fistula Pulm: cta b/l Abd: nondistended, soft, nontener Ext: no edema, no swelling, FROM. L heel tender to palpation Neuro: CN2-12 normal, sensation intact throughout, strength intact throughout. No cogwheel, no leadpipe rigidity. Laboratory Results - last 24 hr 06/14/18 06/14/18 13:58 13:58 WBC 8.0 RBC 3.45 L Hgb 11.4 Hct 33.5 D MCV 97.3 H MCH 33.0 MCHC 33.9 RDW 14.3 Plt Count 465 H MPV 8.0 Absolute Neuts (auto) 5.6 Neutrophils % 70.2 Lymphocytes % 18.4 Monocytes % 8.0 Eosinophils % 1.0 Basophils % 2.4 H Nucleated RBC % 0 Sodium 135 L Potassium 4.6 Chloride 96 L Carbon Dioxide 27 Anion Gap 12 BUN 38 H Creatinine 7.9 H* Creat Clearance w eGFR 4.89 Random Glucose 186 H Calcium 8.9 ASSESSMENT/PLAN: Pt is an 82 y/o F with PMH mult CVA, diet-controlled DM, HTN, ESRD (HD MWF), HLD who presented to ED with complaint of L heel pain. Pt placed on Obs for concern of cellulitis. #heel pain / ? cellulitis -severe L heel pain -Clinda -repeat cbc #ESRD -pt to receive HD tonight -nephro on board #HTN -c/w home Norvasc, hydralazine #HLD -c/w home lipitor #DM -hist DM prior to HD -diet controlled #Hx CVA -Pt advised to f/u with Neuro as an out pt #FEN -HD pt not on fluids -mild hyponatremia will be addressed at HD -Na controlled diet #PPx -Hep subQ #Dispo -Obs Hany Quinn MD PGY-2 IM Visit type - Emergency Visit Emergency Visit: Yes ED Registration Date: 06/14/18 Care time: The patient presented to the Emergency Department on the above date and was hospitalized for further evaluation of their emergent condition. - New Patient This patient is new to me today: Yes Date on this admission: 06/14/18 - Critical Care Critical Care patient: No
[2018-06-14] MEDS ORDERED: EPOETIN ALFA 10,000 UNIT/1 ML VIAL SQ ONE (17:15)
--- NOTE | 2018-06-14 18:07 | PN ---
Teaching Attending Note Name of Resident: Hany Quinn ATTENDING PHYSICIAN STATEMENT I saw and evaluated the patient. I reviewed the resident's note and discussed the case with the resident. I agree with the resident's findings and plan as documented. report is mostly per chart as pt is a poor historian SUBJECTIVE:82yo F wtih PMH ESRD on HD, CVA with no residual deficits, HTN and DM which is diet controlled came to the ER for B/L heel pain. stated about 2 days ago. pain is not radiating and limited to the heels. pt was discharged after being treated for clotted AV fistula and HTN urgency. pt last received HD on thursday. denies CP, SOB, fever, chills, night sweats, N/V/C/D OBJECTIVE: Last Vital Signs Temp Pulse Resp BP Pulse Ox 98.5 F 71 18 175/69 H 99 06/14/18 12:28 06/14/18 17:00 06/14/18 17:00 06/14/18 17:00 06/14/18 12:28 General NAD, minimally verbal CV S1 S2 RRR +murmur Lungs CTA anteriorly Extremities B/L heel are tender to light touch, no erythema or warmth, no break noted in the skin. L heel does have some discoloration on the calcaneus. pulse intact, able to move the digits. ASSESSMENT AND PLAN: 82yo F wtih PMH ESRD on HD, CVA with no residual deficits, HTN and DM which is diet controlled came to the ER for B/L heel pain 1. B/L heel pain- medicine observation. low suspicion for infection given afebrile and no leukocytosis however clinical concern made by PMD. due to multiple risk factors for MRSA and as pt may not mount immune response will admit for IV abx and monitor for improvement. start on Clinda IV. will send Bcx prior to abx being given. Foot XR done to r/o fracture or alternate cause of pain. pain control. 2. ESRD on HD- currently receiving HD. resume per normal schedule. nephrology consulted 3. HTN- above goal. did take medications this AM. will resume home medications 4. CVA- unclear why not on asa. on statin 5. DM- diet controlled. last A1c 5. can continue off medication 6. DVT ppx- EAM
[2018-06-14] MEDS: hydrALAZINE HCL 50 MG TABLET (FP) PO SCH (21:20)
[2018-06-14] MEDS ORDERED: ATORVASTATIN CA 10 MG TABLET (FP) PO SCH (22:00)
[2018-06-14] MEDS: CLINDAMYCIN 300 MG PREMIX IVPB 300 MG/50 ML BAG IVPB SCH (22:22)
[2018-06-15] MEDS: CLINDAMYCIN 300 MG PREMIX IVPB 300 MG/50 ML BAG IVPB SCH ×2 (02:44→14:03)
[2018-06-15] MEDS: hydrALAZINE HCL 50 MG TABLET (FP) PO SCH ×2 (05:46→14:04)
[2018-06-15 07:37] LABS: BASO % 0.7 % (0-2.0); EOS % 2.2 % (0-4.5); HEMOGLOBIN 9.6 GM/dL (10.7-15.3); LYMPH % 27.7 % (8-40); MCH 32.4 pg (25.7-33.7); MCHC 34.2 g/dl (32.0-36.0); MEAN CELL VOLUME 94.8 fl (80-96); MEAN PLT VOLUME 7.6 fl (7.5-11.1); MONO % 9.8 % (3.8-10.2); NEUT % 59.6 % (42.8-82.8); PLATELET COUNT 408 K/MM3 (134-434); RBC 2.95 M/mm3 (3.60-5.2); RDW 14.2 % (11.6-15.6); WHITE BLOOD COUNT 8.1 K/mm3 (4.0-10.0)
[2018-06-15 07:43] LABS: ANION GAP 4 MMOL/L (8-16); BLOOD UREA NITROGEN 17 mg/dL (7-18); CALCIUM 8.6 mg/dL (8.5-10.1); CHLORIDE 99 mmol/L (98-107); CO2 34 mmol/L (21-32); CREATININE 4.4 mg/dL (0.55-1.3); GLUCOSE,RANDOM 114 mg/dL (74-106); SODIUM 136 mmol/L (136-145)
[2018-06-15] MEDS ORDERED: PT OWN MED DRAWER 7, Y5N ONE ×3 (09:14→11:48)
[2018-06-15] MEDS ORDERED: amLODIPine BESYLATE 10 MG TABLET (FP) PO SCH (10:00)
[2018-06-15 14:07] VITALS: PULSE 69
--- NOTE | 2018-06-15 14:10 | PN ---
Progress Note (short form) - Note Progress Note: Renal follow up for ESRD on HD S/p dialysis yesterday as inpatient no acute complaints today denies any sob, cp, abd pain, N/V Vital Signs Temperature 98.8 F 06/15/18 14:06 Pulse Rate 69 06/15/18 14:06 Respiratory Rate 16 06/15/18 14:06 Blood Pressure 142/47 L 06/15/18 14:06 O2 Sat by Pulse Oximetry (%) 97 06/14/18 23:08 Intake & Output 06/12/18 06/13/18 06/14/18 06/15/18 23:59 23:59 23:59 23:59 Weight 52.248 kg NAD no LE swelling CBC, BMP 06/15/18 06:20 06/15/18 06:20 Current Medications Amlodipine Besylate (Norvasc -) 10 mg PO DAILY MICHELLE Last Admin: 06/15/18 12:08 Dose: 10 mg Atorvastatin Calcium (Lipitor -) 10 mg PO HS MICHELLE Last Admin: 06/14/18 21:20 Dose: 10 mg Hydralazine HCl (Apresoline -) 75 mg PO TID MICHELLE Last Admin: 06/15/18 05:46 Dose: 75 mg Clindamycin Phosphate (Cleocin 300 Mg Premix Ivpb) 300 mg in 50 mls @ 100 mls/ hr IVPB Q8H-IV MICHELLE; Protocol Last Admin: 06/15/18 02:44 Dose: 100 mls/hr 82 y/o F with PMH of HTN, ESRD (MWF), 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
--- NOTE | 2018-06-15 14:38 | CON.ID ---
Consult Consult Specialty:: infectious disease Referred by:: hospitalist Reason for Consultation:: left heel pain for 2 days - History of Present Illness Chief Complaint: left heel pain History of Present Illness: 82 yo female with HTN, ESRD, prior cva just discharged from the hosptal after occuded L avf - 06/12 s/p suction thrombectomy and venoplasty 06/10 she was brought in by her daughter who noted the heel pain no fevers xray no fracture she received vanco/zosyn in ED and is now on clindamycin she reports less heel pain she ambulated with assistance with physical therapy today - History Source History Provided By: Medical Record Limitations to Obtaining History: Poor Historian - Past Medical History 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 Cardio/Vascular: Yes: HTN Renal/: Yes: Renal Failure, Hemodialysis Endocrine: Yes: Diabetes Mellitus (diet controlled) - Past Surgical History Past Surgical History: Yes: AV Fistula/Graft, Hysterectomy - Alcohol/Substance Use Hx Alcohol Use: No - Smoking History Smoking history: Unknown if ever smoked - Social History Usual Living Arrangement: With Child ADL: Family Assistance Home Medications - Allergies Allergies/Adverse Reactions: Allergies Allergy/AdvReac Type Severity Reaction Status Date / Time No Known Allergies Allergy Verified 06/09/18 17:16 - Home Medications Home Medications: Ambulatory Orders Amlodipine Besylate [Norvasc -] 10 mg PO DAILY 12/16/13 Pravastatin Sodium [Pravachol -] 40 mg PO HS 12/16/13 Hydralazine HCl 75 mg PO TID 06/09/18 Family Disease History - Family Disease History Family History: Unable to Obtain Review of Systems - Review of Systems Constitutional: reports: No Symptoms Eyes: reports: No Symptoms HENT: reports: No Symptoms Neck: reports: No Symptoms Cardiovascular: reports: No Symptoms Respiratory: reports: No Symptoms Gastrointestinal: reports: No Symptoms Genitourinary: reports: No Symptoms Musculoskeletal: reports: No Symptoms Integumentary: reports: Other (left heel pain) Physical Exam Vital Signs: Vital Signs Temperature 98.8 F 06/15/18 14:06 Pulse Rate 69 06/15/18 14:06 Respiratory Rate 16 06/15/18 14:06 Blood Pressure 142/47 L 06/15/18 14:06 O2 Sat by Pulse Oximetry (%) 97 06/15/18 09:00 Constitutional: Yes: No Distress, Calm Eyes: Yes: Conjunctiva Clear HENT: Yes: Atraumatic, Normocephalic Neck: Yes: Supple Cardiovascular: Yes: Regular Rate and Rhythm Respiratory: Yes: Regular, CTA Bilaterally Gastrointestinal: Yes: Normal Bowel Sounds, Soft Extremities: Yes: Other (left avf with dressing intact left heel with callous, erythema, minimal tenderness to palpation- no fluctuance, tissue injury?) Edema: No Psychiatric: Yes: Alert Labs: CBC, BMP 06/15/18 06:20 06/15/18 06:20 Imaging - Results X-ray: Report Reviewed (arthritic changes, no fracture) Assessment/Plan left heel pain- most likely due to pressure on the heel area- ?early ulcer suggest heel pads podaitry evaluation continue clindamycin, can switch to po clindamycin 300 tid for total 7 days when ready for discharge add probiotics esrd/hd history of HTN
--- NOTE | 2018-06-15 14:46 | PN ---
Physical Exam: SUBJECTIVE: Patient seen and examined this morning at bedside. Does not recall when the pain started; describes the pain as 8/10, sharp, and without radiation. Denies any trauma to the area or new shoes. No pain at the ankle joint. OBJECTIVE: Vital Signs Period Temp Pulse Resp BP Sys/Weber Pulse Ox Last 24 Hr 98.2 F-98.8 F 60-72 16-69 105-178/45-70 97-97 GENERAL: A&Ox3, NAD HEAD: NCAT EYES: PERRL, EOMI ENT: Oropharynx clear without exudates, moist mucous membranes. NECK: No JVD LUNGS: CTAB, no wheezes HEART: Regular rate and rhythm, S1, S2 without murmur ABDOMEN: Soft, nontender, nondistended, + bowel sounds, no guarding EXTREMITIES: No edema. Left posterior heel pain, tender to palpation, slightly erythematous, No warmth, No active drainage or bleeding, No tenderness to palpation at the Ankle joint. 5/5 Muscle strength to plantarflexion and dorsiflexion b/l. L4-S1 Gross sensation intact b/l. NEUROLOGICAL: Cranial nerves II through XII grossly intact. Normal speech. SKIN: Warm, dry, no rashes or lesions noted Laboratory Results - last 24 hr 06/14/18 06/14/18 06/15/18 13:58 13:58 06:20 WBC 8.0 8.1 RBC 3.45 L 2.95 L Hgb 11.4 9.6 L Hct 33.5 D 28.0 L D MCV 97.3 H 94.8 MCH 33.0 32.4 MCHC 33.9 34.2 RDW 14.3 14.2 Plt Count 465 H 408 MPV 8.0 7.6 Absolute Neuts (auto) 5.6 4.8 Neutrophils % 70.2 59.6 Lymphocytes % 18.4 27.7 D Monocytes % 8.0 9.8 Eosinophils % 1.0 2.2 D Basophils % 2.4 H 0.7 Nucleated RBC % 0 0 ESR Sodium 135 L Potassium 4.6 Chloride 96 L Carbon Dioxide 27 Anion Gap 12 BUN 38 H Creatinine 7.9 H* Creat Clearance w eGFR 4.89 Random Glucose 186 H Calcium 8.9 C-Reactive Protein 06/15/18 06/15/18 06/15/18 06:20 06:20 06:20 WBC RBC Hgb Hct MCV MCH MCHC RDW Plt Count MPV Absolute Neuts (auto) Neutrophils % Lymphocytes % Monocytes % Eosinophils % Basophils % Nucleated RBC % ESR 38 H Sodium 136 Potassium 4.0 Chloride 99 Carbon Dioxide 34 H Anion Gap 4 L BUN 17 Creatinine 4.4 H Creat Clearance w eGFR 9.60 Random Glucose 114 H Calcium 8.6 C-Reactive Protein 2.9 H Cancelled Active Medications Amlodipine Besylate (Norvasc -) 10 mg PO DAILY MICHELLE Last Admin: 06/15/18 12:08 Dose: 10 mg Atorvastatin Calcium (Lipitor -) 10 mg PO HS MICHELLE Last Admin: 06/14/18 21:20 Dose: 10 mg Hydralazine HCl (Apresoline -) 75 mg PO TID MICHELLE Last Admin: 06/15/18 14:04 Dose: 75 mg Clindamycin Phosphate (Cleocin 300 Mg Premix Ivpb) 300 mg in 50 mls @ 100 mls/ hr IVPB Q8H-IV MICHELLE; Protocol Last Admin: 06/15/18 14:03 Dose: 100 mls/hr IMAGING: -Foot/Ankle Xray: Arthritic changes including calcaneal spurring but no sign of a calcaneal fracture. ASSESSMENT/PLAN: 82 y/o F with PMHx of multiple CVA's, diet-controlled DM, HTN, ESRD (HD on MWF) , HLD presented to with L heel pain #Left heel pain -Possibly due to Cellulitis however low suspicion given Afebrile, no WBC count -Blood cx taken after ABx already started; Pending growth -Continue Clindamycin (Started on 06/14) -ID (Dr. Oliva) consulted -Podiatry (Dr. Miles) consulted #ESRD -Nephrology (Dr. Reyes) consulted, Appreciate Rec's -Continue usual MWF HD schedule #HTN -Norvasc, Hydralazine #HLD -Lipitor #DM -Diet controlled #Hx CVA -F/U with Neurology outpatient #FEN -PO Fluids -Lytes WNL -Sodium controlled diet #PPx -DVT: Heparin Dispo:Obs
[2018-06-15] MEDS ORDERED: CEFAZOLIN 1 GM in DEXTROSE 5%-WATER - 50 ML IVPB SCH (15:00)
--- NOTE | 2018-06-15 15:22 | CONSULT ---
Consult Consult Specialty:: Podiatry Reason for Consultation:: Left heel pretrophic wound with pain - History of Present Illness Chief Complaint: Pain left heel History of Present Illness: Painful left heel with pretrophic wound. 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 Cardio/Vascular: Yes: HTN Renal/: Yes: Renal Failure, Hemodialysis Endocrine: Yes: Diabetes Mellitus (diet controlled) - Past Surgical History Past Surgical History: Yes: AV Fistula/Graft, Hysterectomy - Alcohol/Substance Use Hx Alcohol Use: No - Smoking History Smoking history: Unknown if ever smoked - Social History Usual Living Arrangement: With Child ADL: Family Assistance Home Medications - Allergies Allergies/Adverse Reactions: Allergies Allergy/AdvReac Type Severity Reaction Status Date / Time No Known Allergies Allergy Verified 06/09/18 17:16 - Home Medications Home Medications: Ambulatory Orders Amlodipine Besylate [Norvasc -] 10 mg PO DAILY 12/16/13 Pravastatin Sodium [Pravachol -] 40 mg PO HS 12/16/13 Hydralazine HCl 75 mg PO TID 06/09/18 Physical Exam Vital Signs: Vital Signs Temperature 98.8 F 06/15/18 14:06 Pulse Rate 69 06/15/18 14:06 Respiratory Rate 16 06/15/18 14:06 Blood Pressure 142/47 L 06/15/18 14:06 O2 Sat by Pulse Oximetry (%) 97 06/15/18 09:00 Extremities: Yes: Other (pretrophic wound left heel, +tender, +grade 0) Peripheral Pulses WNL: No (vascular to evaluate) Labs: CBC, BMP 06/15/18 06:20 06/15/18 06:20 Imaging - Results X-ray: Report Reviewed Assessment/Plan pretrophic left heel wound PVD Offloading of heel. Vascular consult. Will follow. Ammonium lactate to heels and feet.
[2018-06-15] MEDS ORDERED: LACTOBACILLUS ACIDOPHILUS 1 TABLET PO SCH (15:45)
--- NOTE | 2018-06-15 16:06 | DS ---
Physical Examination Vital Signs: Vital Signs Temperature 98.8 F 06/15/18 14:06 Pulse Rate 69 06/15/18 14:06 Respiratory Rate 16 06/15/18 14:06 Blood Pressure 142/47 L 06/15/18 14:06 O2 Sat by Pulse Oximetry (%) 97 06/15/18 09:00 Labs: CBC, BMP 06/15/18 06:20 06/15/18 06:20 Discharge Summary Reason For Visit: DIABETES MELLITUS; END STAGE RENAL FAILURE Current Active Problems Cellulitis of left foot excluding toes (Acute) Pressure ulcer of ankle (Acute) ESRD (end stage renal disease) (Chronic) HTN (hypertension) (Chronic) Condition: Stable - Instructions Diet, Activity, Other Instructions: You presented to the hospital due to pressure heel ulcer You treated with antibiotics , and ammonium sulfide You will be discharged home on oral antibiotics Clindamycin 300 mg three time for 7 days , and probiotics to protect your stomach. You can also apply ammonium sulfide on the heels encourage change position every 2 hours Keep your heels off loading , please use heel pads to help prevent the ulcers. Please take your medicine as prescribed Please follow up with your primary doctor within one week Please follow up with box office agent Dr Miles within one week If you develop fever, chills, worsen ulcer , bleeding or your symptoms worsen please return to emergency room. Referrals: ON STAFF,NOT [Primary Care Provider] - 1 Week Mikhail Miles DPM [Staff Physician] - Disposition: HOME - Home Medications Comprehensive Discharge Medication List: Ambulatory Orders Amlodipine Besylate [Norvasc -] 10 mg PO DAILY 12/16/13 Pravastatin Sodium [Pravachol -] 40 mg PO HS 12/16/13 Hydralazine HCl 75 mg PO TID 06/09/18 Ammonium Lactate Cream [Lac-Hydrin 12% Cream -] 1 applic TP BID 30 Days #1 tube 06/15/18 Clindamycin [Cleocin -] 300 mg PO TID #21 capsule 06/15/18 Lactobacillus Acidophilus [Acidophilus] 1 each PO DAILY 30 Days #30 capsule Miscellaneous Medical Supply [Outpatient Order] 1 each ASDIR #1 misc Miscellaneous Medical Supply [Outpatient Order] [facility]
--- NOTE | 2018-06-15 16:08 | DS ---
Physical Exam: SUBJECTIVE: Patient seen and examined at bedside. She was found to have pressure ulcers in her heels. She denies fever, chills, nausea, vomiting, diarrhea, and constipation. OBJECTIVE: Vital Signs Period Temp Pulse Resp BP Sys/Weber Pulse Ox Last 24 Hr 98.2 F-98.8 F 60-72 16-69 105-178/45-70 97-97 PHYSICAL EXAM GENERAL: The patient is awake, alert, and fully oriented, in no acute distress. HEAD: Normal with no signs of trauma. EYES: PERRL, extraocular movements intact, sclera anicteric, conjunctiva clear. ENT: Ears normal, nares patent, oropharynx clear without exudates, moist mucous membranes. NECK: Full range of motion, supple. LUNGS: Breath sounds equal, clear to auscultation bilaterally, no wheezes, no crackles, no accessory muscle use. HEART: Regular rate and rhythm, S1, S2 without murmur. ABDOMEN: Soft, nontender, nondistended, normoactive bowel sounds. EXTREMITIES: 2+ pulses, warm, well-perfused, no edema. B/l pressure uclers 4x4 cm, stage I with no skin break. AV fistula on left arm. NEUROLOGICAL: No focal deficit. Normal speech, gait not observed. PSYCH: Normal mood, normal affect. SKIN: Warm, dry, normal turgor. LABS Laboratory Results - last 24 hr 06/15/18 06/15/18 06/15/18 06:20 06:20 06:20 WBC 8.1 RBC 2.95 L Hgb 9.6 L Hct 28.0 L D MCV 94.8 MCH 32.4 MCHC 34.2 RDW 14.2 Plt Count 408 MPV 7.6 Absolute Neuts (auto) 4.8 Neutrophils % 59.6 Lymphocytes % 27.7 D Monocytes % 9.8 Eosinophils % 2.2 D Basophils % 0.7 Nucleated RBC % 0 ESR Sodium 136 Potassium 4.0 Chloride 99 Carbon Dioxide 34 H Anion Gap 4 L BUN 17 Creatinine 4.4 H Creat Clearance w eGFR 9.60 Random Glucose 114 H Calcium 8.6 C-Reactive Protein 2.9 H Cancelled 06/15/18 06:20 WBC RBC Hgb Hct MCV MCH MCHC RDW Plt Count MPV Absolute Neuts (auto) Neutrophils % Lymphocytes % Monocytes % Eosinophils % Basophils % Nucleated RBC % ESR 38 H Sodium Potassium Chloride Carbon Dioxide Anion Gap BUN Creatinine Creat Clearance w eGFR Random Glucose Calcium C-Reactive Protein CBC, BMP 06/15/18 06:20 06/15/18 06:20 HOSPITAL COURSE: Date of Admission:06/14/18 Date of Discharge: 06/15/18 Ms. Jennings is a 82 year old female with PHx of end stage renal disease on HD MWF and hypertension. Presented to the emergency room with pain in her ankles. Was found to have bilateral pressure ulcers, stage I. Was given antibiotics clindamycin IV 600 mg q8H, was evaluated by infectious disease doctor [Dr. Oliva] and vocational training teacher [Dr. Tam]. She will be discharged home with clindamycin 300 mg PO TID for 7 days and ammonium lactate, topical twice daily, lactobacillus PO QD for 30 days. Patient will be discharged home and she will follow up with her PCP and vocational training teacher within 1 week. Minutes to complete discharge: 45 Discharge Summary Reason For Visit: DIABETES MELLITUS; END STAGE RENAL FAILURE Current Active Problems Cellulitis of left foot excluding toes (Acute) Pressure ulcer of ankle (Acute) ESRD (end stage renal disease) (Chronic) HTN (hypertension) (Chronic) Condition: Stable - Instructions Diet, Activity, Other Instructions: You presented to the hospital due to pressure heel ulcer You treated with antibiotics , and ammonium sulfide You will be discharged home on oral antibiotics Clindamycin 300 mg three time for 7 days , and probiotics to protect your stomach. You can also apply ammonium sulfide on the heels encourage change position every 2 hours Keep your heels off loading , please use heel pads to help prevent the ulcers. Please take your medicine as prescribed Please follow up with your primary doctor within one week Please follow up with vocational training teacher Dr Miles within one week If you develop fever, chills, worsen ulcer , bleeding or your symptoms worsen please return to emergency room. Referrals: ON STAFF,NOT [Primary Care Provider] - 1 Week Mikhail Miles DPM [Staff Physician] - Disposition: HOME - Home Medications Comprehensive Discharge Medication List: Ambulatory Orders Amlodipine Besylate [Norvasc -] 10 mg PO DAILY 12/16/13 Pravastatin Sodium [Pravachol -] 40 mg PO HS 12/16/13 Hydralazine HCl 75 mg PO TID 06/09/18 Ammonium Lactate Cream [Lac-Hydrin 12% Cream -] 1 applic TP BID 30 Days #1 tube 06/15/18 Clindamycin [Cleocin -] 300 mg PO TID #21 capsule 06/15/18 Lactobacillus Acidophilus [Acidophilus] 1 each PO DAILY 30 Days #30 capsule Miscellaneous Medical Supply [Outpatient Order] 1 each ASDIR #1 misc Miscellaneous Medical Supply [Outpatient Order] 1 each ASDIR #1 misc This patient is new to me today: Yes Date on this admission: 06/15/18 Emergency Visit: Yes ED Registration Date: 06/14/18 Care time: The patient presented to the Emergency Department on the above date and was hospitalized for further evaluation of their emergent condition. Critical Care patient: No - Discharge Referral Referred to [facility] No
--- NOTE | 2018-06-15 16:32 | EKG ---
Test Reason : Blood Pressure : / mmHG Vent. Rate : 067 BPM Atrial Rate : 067 BPM P-R Int : 164 ms QRS Dur : 082 ms QT Int : 458 ms P-R-T Axes : 055 004 046 degrees QTc Int : 483 ms SINUS RHYTHM WITH PREMATURE ATRIAL COMPLEXES VOLTAGE CRITERIA FOR LEFT VENTRICULAR HYPERTROPHY CANNOT RULE OUT INFERIOR INFARCT , AGE UNDETERMINED ABNORMAL ECG WHEN COMPARED WITH ECG OF 09-JUN-2018 17:30, PREMATURE ATRIAL COMPLEXES ARE NOW PRESENT Confirmed by MD Myrna, Abelardo ([id number]) on 06/15/2018 4:31:45 PM Referred By: Confirmed By:Abelardo Norris MD
[2018-06-15 16:44] VITALS: BMI 19.5
[2018-06-15] MEDS ORDERED: CLINDAMYCIN 600MG PREMIX IVPB 600 MG/50 ML BAG IVPB SCH (18:00)
[2018-06-15 18:39] VITALS: BP 148/52; TEMP 99.3
--- NOTE | 2018-06-15 21:00 | PN ---
Teaching Attending Note Name of Resident: Iram Block ATTENDING PHYSICIAN STATEMENT I saw and evaluated the patient. I reviewed the resident's note and discussed the case with the resident. I agree with the resident's findings and plan as documented. SUBJECTIVE: Patient is comfortable with no acute distress. OBJECTIVE: Vital Signs Temperature 99.3 F 06/15/18 18:00 Pulse Rate 69 06/15/18 18:00 Respiratory Rate 18 06/15/18 18:00 Blood Pressure 148/52 L 06/15/18 18:00 O2 Sat by Pulse Oximetry (%) 97 06/15/18 17:00 GEN: NAD, resting in bed HEENT: NCAT, PERRL, EOMI. Jaw tremor Neck: supple, no jvd Cardio:RRR , normal s1s2, Pulm: cta b/l Abd: nondistended, soft, nontener Ext: no edema, no swelling, FROM. L heel tender to palpation >right Neuro: CN2-12 normal . CBCD WBC 8.1 K/mm3 (4.0-10.0) 06/15/18 06:20 RBC 2.95 M/mm3 (3.60-5.2) L 06/15/18 06:20 Hgb 9.6 GM/dL (10.7-15.3) L 06/15/18 06:20 Hct 28.0 % (32.4-45.2) L D 06/15/18 06:20 MCV 94.8 fl (80-96) 06/15/18 06:20 MCHC 34.2 g/dl (32.0-36.0) 06/15/18 06:20 RDW 14.2 % (11.6-15.6) 06/15/18 06:20 Plt Count 408 K/MM3 (134-434) 06/15/18 06:20 MPV 7.6 fl (7.5-11.1) 06/15/18 06:20 CMP Sodium 136 mmol/L (136-145) 06/15/18 06:20 Potassium 4.0 mmol/L (3.5-5.1) 06/15/18 06:20 Chloride 99 mmol/L (98-107) 06/15/18 06:20 Carbon Dioxide 34 mmol/L (21-32) H 06/15/18 06:20 Anion Gap 4 MMOL/L (8-16) L 06/15/18 06:20 BUN 17 mg/dL (7-18) 06/15/18 06:20 Creatinine 4.4 mg/dL (0.55-1.3) H 06/15/18 06:20 Creat Clearance w eGFR 9.60 (>60) 06/15/18 06:20 Random Glucose 114 mg/dL (74-106) H 06/15/18 06:20 Calcium 8.6 mg/dL (8.5-10.1) 06/15/18 06:20 Home Medications Medication Instructions Recorded Amlodipine Besylate [Norvasc -] 10 mg PO DAILY 12/16/13 Pravastatin Sodium [Pravachol -] 40 mg PO HS 12/16/13 Hydralazine HCl 75 mg PO TID 06/09/18 Ammonium Lactate Cream [Lac-Hydrin 1 applic TP BID 30 Days #1 tube 06/15/18 12% Cream -] Clindamycin [Cleocin -] 300 mg PO TID #21 capsule 06/15/18 Lactobacillus Acidophilus 1 each PO DAILY 30 Days #30 capsule 06/15/18 [Acidophilus] Miscellaneous Medical Supply 1 each ASDIR #1 misc 06/15/18 [Outpatient Order] Miscellaneous Medical Supply 1 each ASDIR #1 misc 06/15/18 [Outpatient Order] ASSESSMENT AND PLAN: 82yo F wtih PMH ESRD on HD, CVA with no residual deficits, HTN and DM which is diet controlled came to the ER for B/L heel pain # B/L heel pain- with mild irritaion on po Clindamycin , patient can be sent home today on oral Clindamycin . # ESRD on HD continue current regimen. nephrology consulted # HTN- above goal. did take medications this AM. will resume home medications # CVA- unclear why not on asa. on statin # DM- diet controlled. last A1c 5. discharge patient home
== END 2018-06-15 18:54 | disposition home or self-care (01) ==
LOC: JER 11:56 → UNDOADMOB 15:20 → INTOOBSV 15:20 → JERBED 15:20 → J5S 19:00
PROVIDERS: ADMIT Internal Medicine; ATTEND Internal Medicine
PROC: 3E03329 Introduction of Other Anti-infective into Peripheral Vein, Percutaneous Approach (ICD-10-PCS; principal; 2018-06-14)
PROC: 3E013GC Introduction of Other Therapeutic Substance into Subcutaneous Tissue, Percutaneous Approach (ICD-10-PCS; 2018-06-14)
DX: L03.116 Cellulitis of left lower limb (principal); L89.621 Pressure ulcer of left heel, stage 1; L89.611 Pressure ulcer of right heel, stage 1; E11.22 Type 2 diabetes mellitus with diabetic chronic kidney disease; I12.0 Hypertensive chronic kidney disease with stage 5 chronic kidney disease or end stage renal disease; N18.6 End stage renal disease; Z99.2 Dependence on renal dialysis; E78.5 Hyperlipidemia, unspecified; D64.9 Anemia, unspecified; Z90.710 Acquired absence of both cervix and uterus; Z86.73 Personal history of transient ischemic attack (TIA), and cerebral infarction without residual deficits
CPT/HCPCS: 36415; 73610-TC-LT-FY; 73630-TC-LT; 80048; 85025; 85651; 86140; 87040; 93005; 93010; 96365; 96368; 96372; 96375; 97116-GP; 97161-GP; 99285-25; G0378; J0885

== ENCOUNTER 2018-08-25 11:44 | Inpatient (IN) | payer OTHER, MEDICARE ==
[2018-08-25 11:50] VITALS: BMI 48.0
[2018-08-25 13:09] LABS: BASO % 1.1 % (0-2.0); EOS % 0.5 % (0-4.5); HEMATOCRIT 31.9 % (32.4-45.2); HEMOGLOBIN 10.9 GM/dL (10.7-15.3); LYMPH % 14.6 % (8-40); MCH 32.3 pg (25.7-33.7); MCHC 34.2 g/dl (32.0-36.0); MEAN CELL VOLUME 94.5 fl (80-96); MEAN PLT VOLUME 7.6 fl (7.5-11.1); MONO % 4.5 % (3.8-10.2); NEUT % 79.3 % (42.8-82.8); PLATELET COUNT 432 K/MM3 (134-434); RBC 3.37 M/mm3 (3.60-5.2); RDW 15.7 % (11.6-15.6); WHITE BLOOD COUNT 8.2 K/mm3 (4.0-10.0)
--- NOTE | 2018-08-25 13:16 | PDOC ---
History of Present Illness <Alba Curry - Last Filed: 08/25/18 14:53> - History of Present Illness Initial Comments: 08/25/18 13:22 The patient is a 82 year old female, with a significant past medical history of HTN, Hypercholesterolemia, and ESRD on HD (m/w/f) last on Thursday08/22/17 who presents to the emergency department complaining of a near syncope this morning. As per family, the patient was standing while changing her clothing prior to having a fistula revision when she got lightheaded and almost fell. Her son and the staff sat her down in her walker. As per family, the patient was unresponsive for approximately 5 seconds, appeared to be shivering and drooling. Patients family denies color change or confusion during or after the episode. The patient was sent to the ED prior to having her fistula revision and was scheduled to have HD at 3PM today. The patient denies chest pain, shortness of breath, palpitations, headache Denies fever, chills, nausea, vomit, diarrhea and constipation. Denies dysuria, frequency, urgency and hematuria. Allergies: NKA Past surgical history: AV Fistula, L arm and Hysterectomy Social history: None reported PCP: Dr. Amado ([place]) Ict Development Manager: Dr. Chely Iyer <Leni Layton - Last Filed: 08/25/18 17:39> - General Chief Complaint: Syncope/Near Syncope Stated Complaint: Syncope/Near Syncope Time Seen by Provider: 08/25/18 11:56 Past History <Alba Curry - Last Filed: 08/25/18 14:53> - Past Medical History Anemia: Yes Asthma: No Cancer: No Cardiac Disorders: No CVA: Yes COPD: No CHF: No Dementia: No Diabetes: Yes (no meds) Dialysis: Yes (m,w,f) GI Disorders: No HTN: Yes Hypercholesterolemia: Yes Liver Disease: No Seizures: No Thyroid Disease: Yes - Surgical History Abdominal Surgery: Yes (Hysterectomy) Appendectomy: Yes Cardiac Surgery: No Cholecystectomy: No Lung Surgery: No Neurologic Surgery: No Orthopedic Surgery: No - Immunization History Immunization Up to Date: No - Suicide/Smoking/Psychosocial Hx Smoking History: Never smoked Have you smoked in the past 12 months: No Information on smoking cessation initiated: No Hx Alcohol Use: No Drug/Substance Use Hx: No Substance Use Type: None <Eder Laytonoctavio - Last Filed: 08/25/18 17:39> - Past Medical History Allergies/Adverse Reactions: Allergies Allergy/AdvReac Type Severity Reaction Status Date / Time No Known Allergies Allergy Verified 08/25/18 11:50 Home Medications: Ambulatory Orders Amlodipine Besylate [Norvasc -] 10 mg PO DAILY 12/16/13 Pravastatin Sodium [Pravachol -] 40 mg PO HS 12/16/13 Hydralazine HCl 75 mg PO TID 06/09/18 Allopurinol [Zyloprim -] 100 mg PO DAILY 08/25/18 Furosemide 40 mg PO DAILY 08/25/18 Review of Systems - Review of Systems Comments:: 08/25/18 13:28 GENERAL/CONSTITUTIONAL: No fever or chills. No weakness. HEAD, EYES, EARS, NOSE AND THROAT: No change in vision. No ear pain or discharge. No sore throat. GASTROINTESTINAL: No nausea, vomiting, diarrhea or constipation. GENITOURINARY: No dysuria, frequency, or change in urination. CARDIOVASCULAR: No chest pain or shortness of breath. RESPIRATORY: No cough, wheezing, or hemoptysis. MUSCULOSKELETAL: No joint or muscle swelling or pain. No neck or back pain. SKIN: No rash NEUROLOGIC: No headache, vertigo, loss of consciousness, or change in strength/ sensation. ENDOCRINE: No increased thirst. No abnormal weight change. HEMATOLOGIC/LYMPHATIC: No anemia, easy bleeding, or history of blood clots. ALLERGIC/IMMUNOLOGIC: No hives or skin allergy. <Leni Layton - Last Filed: 08/25/18 17:39> *Physical Exam - Vital Signs Last Vital Signs Temp Pulse Resp BP Pulse Ox 98 F 83 18 179/64 H 98 08/25/18 11:46 08/25/18 11:46 08/25/18 11:46 08/25/18 11:46 08/25/18 11:46 <Alba Curry - Last Filed: 08/25/18 14:53> - Vital Signs Last Vital Signs Temp Pulse Resp BP Pulse Ox 98 F 83 18 179/64 H 98 08/25/18 11:46 08/25/18 11:46 08/25/18 11:46 08/25/18 11:46 08/25/18 11:46 - Physical Exam Comments: 08/25/18 13:28 GENERAL: Awake, alert, and oriented to self and hospital, not date (at baseline per son), in no acute distress HEAD: No signs of trauma EYES: EOMI, sclera anicteric, conjunctiva clear ENT: Oropharynx clear without exudates. Moist mucosa NECK: Normal ROM, supple, no lymphadenopathy, JVD, or masses LUNGS: Breath sounds equal, clear to auscultation bilaterally. No wheezes, and no crackles HEART: + systolic murmur loudest at L sternal border, Regular rate and rhythm, normal S1 and S2, rubs or gallops ABDOMEN: Soft, nontender, normoactive bowel sounds. No guarding, no rebound. No masses EXTREMITIES:+ left upper extremity fistula no palpable thrill. Normal range of motion, no edema. No erythema, or tenderness NEUROLOGICAL: Normal speech, cranial nerves intact, 5/5 strength in all 4 extremities, normal sensation to light touch in all 4 extremities, normal cerebellar exam, normal tone SKIN: Warm, Dry, normal turgor, no rashes or lesions noted. <Leni Layton - Last Filed: 08/25/18 17:39> Moderate Sedation - Procedure Monitoring Vital Signs: Procedure Monitoring Vital Signs Temperature 98 F 08/25/18 11:46 Pulse Rate 83 08/25/18 11:46 Respiratory Rate 18 08/25/18 11:46 Blood Pressure 179/64 H 08/25/18 11:46 O2 Sat by Pulse Oximetry (%) 98 08/25/18 11:46 <Alba Curry - Last Filed: 08/25/18 14:53> - Procedure Monitoring Vital Signs: Procedure Monitoring Vital Signs Temperature 98 F 08/25/18 11:46 Pulse Rate 83 08/25/18 11:46 Respiratory Rate 18 08/25/18 11:46 Blood Pressure 179/64 H 08/25/18 11:46 O2 Sat by Pulse Oximetry (%) 98 08/25/18 11:46 <Leni Layton - Last Filed: 08/25/18 17:39> Heart Score/ECG Review #1 08/25/18 13:30 Twelve-lead EKG was performed and reviewed by me. Normal sinus rhythm, rate 64. Normal axis. No ST elevations. Flipped T wave in aVL. <Leni Layton - Last Filed: 08/25/18 17:39> ED Treatment Course - LABORATORY CBC & Chemistry Diagram: 08/25/18 12:50 08/25/18 12:50 - ADDITIONAL ORDERS Additional order review: Laboratory Results 08/25/18 08/25/18 08/25/18 12:59 12:50 12:50 PT with INR INR PTT (Actin FS) Sodium Potassium Chloride Carbon Dioxide Anion Gap BUN Creatinine Creat Clearance w eGFR Random Glucose Calcium Magnesium Cancelled Total Bilirubin AST ALT Alkaline Phosphatase Troponin I Cancelled Total Protein Albumin Urine Color Yellow Urine Appearance Clear Urine pH 6.0 Ur Specific [place] 1.013 Urine Protein 3+ H Urine Glucose (UA) 1+ H Urine Ketones Negative Urine Blood Negative Urine Nitrite Negative Urine Bilirubin Negative Urine Urobilinogen Negative Ur Leukocyte Esterase Negative Blood Type Cancelled Antibody Screen Cancelled 08/25/18 08/25/18 12:50 12:50 PT with INR 11.30 INR 0.96 PTT (Actin FS) 29.8 Sodium Cancelled Potassium Cancelled Chloride Cancelled Carbon Dioxide Cancelled Anion Gap Cancelled BUN Cancelled Creatinine Cancelled Creat Clearance w eGFR Cancelled Random Glucose Cancelled Calcium Cancelled Magnesium Total Bilirubin Cancelled AST Cancelled ALT Cancelled Alkaline Phosphatase Cancelled Troponin I Total Protein Cancelled Albumin Cancelled Urine Color Urine Appearance Urine pH Ur Specific [place] Urine Protein Urine Glucose (UA) Urine Ketones Urine Blood Urine Nitrite Urine Bilirubin Urine Urobilinogen Ur Leukocyte Esterase Blood Type Antibody Screen 08/25/18 12:50 RBC 3.37 L MCV 94.5 MCHC 34.2 RDW 15.7 H D MPV 7.6 Neutrophils % 79.3 D Lymphocytes % 14.6 D Monocytes % 4.5 Eosinophils % 0.5 Basophils % 1.1 <Alba Curry - Last Filed: 08/25/18 14:53> - LABORATORY CBC & Chemistry Diagram: 08/25/18 12:50 08/25/18 14:39 - RADIOLOGY Radiology Studies Ordered: Category Date Time Status CHEST X-RAY PORTABLE* [RAD] Stat Radiology 08/25/18 12:41 Ordered <Leni Layton - Last Filed: 08/25/18 17:39> Medical Decision Making - Medical Decision Making 08/25/18 13:48 Dr. Momin was paged at the office requesting a call back. 08/25/18 14:34 Dr. Momin was called at the wound center and the case was discussed at this time. <Alba Curry - Last Filed: 08/25/18 14:53> - Medical Decision Making 08/25/18 13:32 82yo F with MMP presents to the ED with syncopal episode. BP elevated on arrival , remaining vitals wnl. Exam with systolic murmur, otherwise wnl. Concern for electrolyte abnormality vs cardiac arrhythmia vs ischemia. Plan for tele monitoring, labs, consult Dr. Momin, admission. Pt will need fistula revision as well for HD. 08/25/18 17:34 Labs unremarkable, K+ wnl CXR clear Pt asymptomatic in ED Dr. Momin consulted, will see the pt. REquests US evaluation of fistula which has been ordered Case discussed with Dr. Fan, pt accepted for admission to tele obs for syncopal episode Case discussed in detail with admitting physician including history, physical exam and ancillary studies. Admitting physician has assumed care for the patient, will follow all pending diagnostics and will complete the evaluation and treatment. <Leni Layton - Last Filed: 08/25/18 17:39> *DC/Admit/Observation/Transfer - Attestations Scribe Attestion: 08/25/18 13:49 Documentation prepared by Alba Curry, acting as medical receptionist assistant for Leni Layton MD <Alba Curry - Last Filed: 08/25/18 14:53> - Discharge Dispostion Decision to Admit order: Yes - Attestations Physician Attestion: 08/25/18 17:39 I, Dr. Leni Layton MD, attest that this document has been prepared under my direction and personally reviewed by me in its entirety. I further attest, that it accurately reflects all work, treatment, procedures and medical decision -making performed by me. <Leni Layton - Last Filed: 08/25/18 17:39> Diagnosis at time of Disposition: Syncope - Discharge Dispostion Condition at time of disposition: Stable - Referrals Referrals: Chely Iyer MD [Primary Care Provider] - - Patient Instructions - Post Discharge Activity
[2018-08-25 13:33] LABS: URINE APPEARANCE CLEAR; URINE BILIRUBIN NEGATIVE (<2.0 mg/dL); URINE COLOR YELLOW; URINE GLUCOSE (UA) 1+ (NEGATIVE); URINE KETONE NEGATIVE (NEGATIVE); URINE LEUK ESTERASE NEGATIVE (NEGATIVE); URINE NITRITE NEGATIVE (NEGATIVE); URINE PROTEIN 3+ (NEGATIVE); URINE UROBILINOGEN NEGATIVE mg/dL (0.2-1.0)
[2018-08-25 13:34] LABS: INR 0.96 (0.83-1.09); PROTHROMBIN TIME (PATIENT) 11.3 SEC (9.7-13.0)
[2018-08-25 13:37] LABS: ACTIVATED PTT 29.8 SECONDS (25.2-36.5)
[2018-08-25 13:54] LABS: EPI CELLS RARE /HPF (FEW); URINE BACTERIA RARE /hpf (NONE SEEN); URINE HYALINE CAST 4 /lpf
--- NOTE | 2018-08-25 15:19 | EKG ---
Test Reason : Blood Pressure : / mmHG Vent. Rate : 064 BPM Atrial Rate : 064 BPM P-R Int : 170 ms QRS Dur : 086 ms QT Int : 440 ms P-R-T Axes : 059 026 071 degrees QTc Int : 453 ms NORMAL SINUS RHYTHM WITH SINUS ARRHYTHMIA LEFT VENTRICULAR HYPERTROPHY WITH REPOLARIZATION ABNORMALITY ABNORMAL ECG WHEN COMPARED WITH ECG OF 14-JUN-2018 16:27, PREMATURE ATRIAL COMPLEXES ARE NO LONGER PRESENT MINIMAL CRITERIA FOR INFERIOR INFARCT ARE NO LONGER PRESENT T WAVE INVERSION NOW EVIDENT IN LATERAL LEADS Confirmed by LATESHA POP, MARIBEL ([id number]) on 08/25/2018 3:18:50 PM Referred By: Confirmed By:MARIBEL CHARLTON MD
[2018-08-25 16:15] LABS: ALBUMIN 3.4 g/dl (3.4-5.0); ALK PHOS 93 U/L (45-117); ANION GAP 12 MMOL/L (8-16); BILIRUBIN,TOTAL 0.3 mg/dL (0.2-1); BLOOD UREA NITROGEN 43 mg/dL (7-18); CALCIUM 8.8 mg/dL (8.5-10.1); CHLORIDE 103 mmol/L (98-107); CO2 22 mmol/L (21-32); CREATININE 6.7 mg/dL (0.55-1.3); GLUCOSE,RANDOM 139 mg/dL (74-106); MAGNESIUM 2.6 mg/dL (1.8-2.4); POTASSIUM 4.2 mmol/L (3.5-5.1); SGOT/AST 11 U/L (15-37); SGPT/ALT 11 U/L (13-61); SODIUM 137 mmol/L (136-145); TOT PROT 7.2 g/dl (6.4-8.2)
--- NOTE | 2018-08-25 18:17 | HP ---
Admitting History and Physical - Primary Care Physician PCP: Andrea Fan - Admission Chief Complaint: syncope History of Present Illness: 82 year old female, with a significant past medical history of HTN, Hypercholesterolemia, and ESRD on HD (m/w/f) last on Thursday08/22/17 who presents to the emergency department complaining of a near syncope this morning. As per family, the patient was standing while changing her clothing prior to having a fistula revision when she got lightheaded and almost fell. Her son and the staff sat her down in her walker. As per family, the patient was unresponsive for approximately 5 seconds, appeared to be shivering and drooling. Patients family denies color change or confusion during or after the episode. The patient was sent to the ED prior to having her fistula revision and was scheduled to have HD at 3PM today. 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 Cardiovascular: Yes: HTN, Hyperlipdemia Renal/: Yes: Renal Failure, Hemodialysis Endocrine: Yes: Diabetes Mellitus (diet controlled) - Past Surgical History Past Surgical History: Yes: AV Fistula/Graft, Hysterectomy - Smoking History Smoking history: Never smoked Have you smoked in the past 12 months: No - Alcohol/Substance Use Hx Alcohol Use: No - Social History ADL: Family Assistance Home Medications - Allergies Allergies/Adverse Reactions: Allergies Allergy/AdvReac Type Severity Reaction Status Date / Time No Known Allergies Allergy Verified 08/25/18 11:50 - Home Medications Home Medications: Ambulatory Orders Amlodipine Besylate [Norvasc -] 10 mg PO DAILY 12/16/13 Pravastatin Sodium [Pravachol -] 40 mg PO HS 12/16/13 Hydralazine HCl 75 mg PO TID 06/09/18 Allopurinol [Zyloprim -] 100 mg PO DAILY 08/25/18 Furosemide 40 mg PO DAILY 08/25/18 Review of Systems - Review of Systems Neurological: reports: Syncope Physical Examination Vital Signs: Vital Signs Temperature 98 F 08/25/18 11:46 Pulse Rate 65 08/25/18 14:44 Respiratory Rate 20 08/25/18 14:44 Blood Pressure 141/48 L 08/25/18 14:44 O2 Sat by Pulse Oximetry (%) 99 08/25/18 14:44 Constitutional: Yes: No Distress HENT: Yes: Atraumatic Neck: Yes: Supple Cardiovascular: Yes: Regular Rate and Rhythm Respiratory: Yes: CTA Bilaterally Gastrointestinal: Yes: Normal Bowel Sounds Extremities: Yes: WNL Edema: No Peripheral Pulses WNL: Yes Neurological: Yes: Alert, Oriented Labs: CBC, BMP 08/25/18 12:50 08/25/18 14:39 Problem List - Problems (1) Syncope Assessment/Plan: resolved Code(s): R55 - SYNCOPE AND COLLAPSE Qualifiers: Syncope type: vasovagal syncope Qualified Code(s): R55 - Syncope and collapse (2) Clotted renal dialysis AV graft Assessment/Plan: for OR with dr aguillon Code(s): T82.868A - THROMBOSIS DUE TO VASCULAR PROSTH DEV/GRFT, INIT (3) Diabetes Code(s): E11.9 - TYPE 2 DIABETES MELLITUS WITHOUT COMPLICATIONS Qualifiers: Diabetes mellitus type: type 2 (4) ESRD (end stage renal disease) on dialysis Assessment/Plan: on hd Code(s): N18.6 - END STAGE RENAL DISEASE; Z99.2 - DEPENDENCE ON RENAL DIALYSIS (5) HTN (hypertension) Assessment/Plan: on meds stable Code(s): I10 - ESSENTIAL (PRIMARY) HYPERTENSION Assessment/Plan Laboratory Tests 08/25/18 08/25/18 08/25/18 12:50 12:50 12:50 WBC 8.2 RBC 3.37 L Hgb 10.9 Hct 31.9 L MCV 94.5 MCH 32.3 MCHC 34.2 RDW 15.7 H D Plt Count 432 MPV 7.6 Absolute Neuts (auto) 6.5 Neutrophils % 79.3 D Lymphocytes % 14.6 D Monocytes % 4.5 Eosinophils % 0.5 Basophils % 1.1 Nucleated RBC % 0 PT with INR 11.30 INR 0.96 PTT (Actin FS) 29.8 Sodium Cancelled Potassium Cancelled Chloride Cancelled Carbon Dioxide Cancelled Anion Gap Cancelled BUN Cancelled Creatinine Cancelled Creat Clearance w eGFR Cancelled Random Glucose Cancelled Calcium Cancelled Magnesium Total Bilirubin Cancelled AST Cancelled ALT Cancelled Alkaline Phosphatase Cancelled Troponin I Total Protein Cancelled Albumin Cancelled Urine Color Urine Appearance Urine pH Ur Specific Neligh Urine Protein Urine Glucose (UA) Urine Ketones Urine Blood Urine Nitrite Urine Bilirubin Urine Urobilinogen Ur Leukocyte Esterase Urine WBC (Auto) Urine RBC (Auto) Ur Epithelial Cells Urine Bacteria Hyaline Casts Blood Type Antibody Screen 08/25/18 08/25/18 08/25/18 12:50 12:50 12:59 WBC RBC Hgb Hct MCV MCH MCHC RDW Plt Count MPV Absolute Neuts (auto) Neutrophils % Lymphocytes % Monocytes % Eosinophils % Basophils % Nucleated RBC % PT with INR INR PTT (Actin FS) Sodium Potassium Chloride Carbon Dioxide Anion Gap BUN Creatinine Creat Clearance w eGFR Random Glucose Calcium Magnesium Cancelled Total Bilirubin AST ALT Alkaline Phosphatase Troponin I Cancelled Total Protein Albumin Urine Color Yellow Urine Appearance Clear Urine pH 6.0 Ur Specific Neligh 1.013 Urine Protein 3+ H Urine Glucose (UA) 1+ H Urine Ketones Negative Urine Blood Negative Urine Nitrite Negative Urine Bilirubin Negative Urine Urobilinogen Negative Ur Leukocyte Esterase Negative Urine WBC (Auto) 1 Urine RBC (Auto) None Ur Epithelial Cells Rare Urine Bacteria Rare Hyaline Casts 4 Blood Type Cancelled Antibody Screen Cancelled 08/25/18 14:39 WBC RBC Hgb Hct MCV MCH MCHC RDW Plt Count MPV Absolute Neuts (auto) Neutrophils % Lymphocytes % Monocytes % Eosinophils % Basophils % Nucleated RBC % PT with INR INR PTT (Actin FS) Sodium 137 Potassium 4.2 Chloride 103 Carbon Dioxide 22 Anion Gap 12 BUN 43 H Creatinine 6.7 H Creat Clearance w eGFR 5.91 Random Glucose 139 H Calcium 8.8 Magnesium 2.6 H Total Bilirubin 0.3 AST 11 L ALT 11 L Alkaline Phosphatase 93 Troponin I < 0.02 Total Protein 7.2 Albumin 3.4 Urine Color Urine Appearance Urine pH Ur Specific Neligh Urine Protein Urine Glucose (UA) Urine Ketones Urine Blood Urine Nitrite Urine Bilirubin Urine Urobilinogen Ur Leukocyte Esterase Urine WBC (Auto) Urine RBC (Auto) Ur Epithelial Cells Urine Bacteria Hyaline Casts Blood Type Antibody Screen Active Medications Generic Name Dose Route Start Last Admin Trade Name Freq PRN Reason Stop Dose Admin Allopurinol 100 mg 08/26/18 10:00 Zyloprim - PO DAILY MICHELLE Amlodipine Besylate 10 mg 08/26/18 10:00 08/26/18 12:21 Norvasc - PO 10 mg DAILY MICHELLE Administration Atorvastatin Calcium 10 mg 08/25/18 22:00 08/26/18 00:51 Lipitor - PO 10 mg HS MICHELLE Administration Furosemide 40 mg 08/26/18 10:00 08/26/18 12:21 Lasix - PO 40 mg DAILY MICHELLE Administration Heparin Sodium (Porcine) 500 unit 08/26/18 13:04 Heparin - IVPUSH 08/26/18 18:00 ONCE MICHELLE Sodium Chloride 250 mls @ 3,000 mls/hr 08/26/18 13:04 Normal Saline - IV 08/27/18 13:05 PRN PRN Hypotension during Dialysis
[2018-08-25] MEDS ORDERED: ATORVASTATIN CA 10 MG TABLET (FP) PO SCH (22:00)
[2018-08-25 23:27] LABS: ANISOCYTOSIS 2+
[2018-08-25 23:28] LABS: ACANTHOCYTES 2+; PLATELET ESTIMATE ADEQUATE
--- NOTE | 2018-08-26 09:48 | CONSULT ---
Consult - History of Present Illness History of Present Illness: 82 year old woman with ESRD on HD was scheduled for office venogram of her AV fistula yesterday. She was referred for prolonged bleeding after dialysis. In the office she became lightheaded and was sent to ER for evaluation. Procedure was not done. 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 Cardio/Vascular: Yes: HTN, Hyperlipdemia Renal/: Yes: Renal Failure, Hemodialysis Endocrine: Yes: Diabetes Mellitus (diet controlled) - Past Surgical History Past Surgical History: Yes: AV Fistula/Graft, Hysterectomy - Alcohol/Substance Use Hx Alcohol Use: No - Smoking History Smoking history: Never smoked Have you smoked in the past 12 months: No - Social History Usual Living Arrangement: With Child ADL: Family Assistance Home Medications - Allergies Allergies/Adverse Reactions: Allergies Allergy/AdvReac Type Severity Reaction Status Date / Time No Known Allergies Allergy Verified 08/25/18 11:50 - Home Medications Home Medications: Ambulatory Orders Amlodipine Besylate [Norvasc -] 10 mg PO DAILY 12/16/13 Pravastatin Sodium [Pravachol -] 40 mg PO HS 12/16/13 Hydralazine HCl 75 mg PO TID 06/09/18 Allopurinol [Zyloprim -] 100 mg PO DAILY 08/25/18 Furosemide 40 mg PO DAILY 08/25/18 Physical Exam Vital Signs: Vital Signs Temperature 98.5 F 08/26/18 09:29 Pulse Rate 60 08/26/18 09:29 Respiratory Rate 16 08/26/18 09:29 Blood Pressure 182/87 H 08/26/18 09:29 O2 Sat by Pulse Oximetry (%) 98 08/26/18 09:29 Extremities: Yes: Other (Left upper arm no edema. SubQ graft with pulse.) Labs: CBC, BMP 08/25/18 12:50 08/25/18 14:39 Problem List - Problems (1) Malfunction of arteriovenous dialysis fistula Assessment/Plan: Duplex shows patent fistula with indwelling stents. Plan venogram today to assess and treat stenosis of AV fistula Code(s): T82.590A - [facility] COMPL OF SURGICALLY CREATED ARTERIOVENOUS FISTULA, INIT Qualifiers: Encounter type: subsequent encounter Qualified Code(s): T82.590D - Other mechanical complication of surgically created arteriovenous fistula, subsequent encounter
[2018-08-26] MEDS ORDERED: FUROSEMIDE 40 MG TABLET (FP) PO SCH (10:00)
[2018-08-26] MEDS ORDERED: ALLOPURINOL 100 MG TABLET (FP) PO SCH (10:00)
[2018-08-26] MEDS ORDERED: amLODIPine BESYLATE 10 MG TABLET (FP) PO SCH (10:00)
--- NOTE | 2018-08-26 10:11 | SPA.PREOP ---
- PRE-OP NOTE Dx: ESRD on HD Planned Procedure: Venogram, possible venoplasty of Left Upper Extremity AVF Surgeon: Dr Juan Andino Last Vital Signs Temp Pulse Resp BP Pulse Ox 98.5 F 60 16 182/87 H 98 08/26/18 09:29 08/26/18 09:29 08/26/18 09:29 08/26/18 09:29 08/26/18 09:29 Lab Results WBC 8.2 K/mm3 (4.0-10.0) 08/25/18 12:50 RBC 3.37 M/mm3 (3.60-5.2) L 08/25/18 12:50 Hgb 10.9 GM/dL (10.7-15.3) 08/25/18 12:50 Hct 31.9 % (32.4-45.2) L 08/25/18 12:50 MCV 94.5 fl (80-96) 08/25/18 12:50 MCHC 34.2 g/dl (32.0-36.0) 08/25/18 12:50 RDW 15.7 % (11.6-15.6) H D 08/25/18 12:50 Plt Count 432 K/MM3 (134-434) 08/25/18 12:50 Sodium 137 mmol/L (136-145) 08/25/18 14:39 Potassium 4.2 mmol/L (3.5-5.1) 08/25/18 14:39 Chloride 103 mmol/L (98-107) 08/25/18 14:39 Carbon Dioxide 22 mmol/L (21-32) 08/25/18 14:39 Anion Gap 12 MMOL/L (8-16) 08/25/18 14:39 BUN 43 mg/dL (7-18) H 08/25/18 14:39 Creatinine 6.7 mg/dL (0.55-1.3) H 08/25/18 14:39 Random Glucose 139 mg/dL (74-106) H 08/25/18 14:39 Calcium 8.8 mg/dL (8.5-10.1) 08/25/18 14:39 Blood Type Cancelled 08/25/18 12:50 Antibody Screen Cancelled 08/25/18 12:50 INR 0.96 (0.83-1.09) 08/25/18 12:50 - IMAGING Chest X-ray: Report Reviewed (CXR (08/26/18): Cardiomegaly. No evidence of chf, pneumonia, atelectasis. No pleural effusion or pneumothorax is seen.) EKG: Report Reviewed (EKG (08/26/18): Normal sinus rhythm with sinus arrhythmia, left ventricular hypertrophy with repolariozation abnormality. T wave inversion now evident in lateral leads) Other: Report Reviewed (Duplex 08/25/18: Patent AVF) - ASSESSMENT/PLAN Plan for OR later this afternoon, with Dr Momin 1. Make NPO after midnight except po meds 2. GI/DVT PPX 3. Medical optimization / clearance 4. Consent to be obtained by surgeon after risks, benefits and alternatives discussed with patient and or Health Care Proxy.
--- NOTE | 2018-08-26 10:28 | CON.CARD ---
Consult Consult Specialty:: Cardiology Referred by:: Andrea Fan MD Reason for Consultation:: Syncope - History of Present Illness Chief Complaint: Syncope History of Present Illness: 82 year old female, with a significant past medical history of HTN, Hypercholesterolemia, and ESRD on HD (m/w/f) last on Thursday08/22/17 who presents to the emergency department complaining of a near syncope. The patient was standing while changing her clothing prior to having a fistula revision when she felt lightheaded and almost fell. Her son and the staff sat her down in her walker. As per family, the patient was unresponsive for approximately 5 seconds, appeared to be shivering and drooling. Patients family denies nausea , emesis, diaphoresis, flushing, chest pain, dyspnea, palpitations was NPO prior to fistula revision. The patient was sent to the ED prior to having her fistula revision and was scheduled to have HD. Allergies: NKA Past surgical history: AV Fistula, L arm and Hysterectomy Social history: None reported PCP: Dr. Amado ([place]) Geospatial Information Scientist: Dr. Chely Iyer Field Instructor: Dr. Leung [facility] [phone] - History Source History Provided By: Family Member Limitations to Obtaining History: Poor Historian - Past Medical History RN ASSESSMENT: Yes: CVA Cardio/Vascular: Yes: HTN, Hyperlipdemia Renal/: Yes: Renal Failure, Hemodialysis Endocrine: Yes: Diabetes Mellitus (diet controlled) - Past Surgical History Past Surgical History: Yes: AV Fistula/Graft, Hysterectomy - Alcohol/Substance Use Hx Alcohol Use: No - Smoking History Smoking history: Never smoked Have you smoked in the past 12 months: No - Social History Usual Living Arrangement: With Child ADL: Family Assistance Home Medications - Allergies Allergies/Adverse Reactions: Allergies Allergy/AdvReac Type Severity Reaction Status Date / Time No Known Allergies Allergy Verified 08/25/18 11:50 - Home Medications Home Medications: Ambulatory Orders Amlodipine Besylate [Norvasc -] 10 mg PO DAILY 12/16/13 Pravastatin Sodium [Pravachol -] 40 mg PO HS 12/16/13 Hydralazine HCl 75 mg PO TID 06/09/18 Allopurinol [Zyloprim -] 100 mg PO DAILY 08/25/18 Furosemide 40 mg PO DAILY 08/25/18 Review of Systems - Review of Systems Constitutional: reports: Weakness Neurological: reports: Change in LOC, Dizziness, Weakness Vital Signs: Vital Signs Temperature 98.5 F 08/26/18 09:29 Pulse Rate 60 08/26/18 09:29 Respiratory Rate 16 08/26/18 09:29 Blood Pressure 182/87 H 08/26/18 09:29 O2 Sat by Pulse Oximetry (%) 98 08/26/18 09:29 Constitutional: Yes: No Distress, Calm Neck: Yes: Supple Respiratory: Yes: Regular, CTA Bilaterally Gastrointestinal: Yes: Normal Bowel Sounds, Soft Cardiovascular: Yes: Regular Rate and Rhythm Heart Sounds: Yes: S1, S2 Murmur: Yes: Systolic Murmur, Grade 1 Edema: No - Other Data Labs, Other Data: CBC, BMP 08/25/18 12:50 08/25/18 14:39 INR, PTT INR 0.96 (0.83-1.09) 08/25/18 12:50 Troponin, BNP 08/25/18 08/25/18 08/25/18 12:50 14:39 18:30 Troponin I Cancelled < 0.02 < 0.02 Troponin, BNP 08/25/18 08/25/18 08/25/18 12:50 14:39 18:30 Troponin I Cancelled < 0.02 < 0.02 NSR @ 64 [facility] Imaging - Results Chest X-ray: Report Reviewed (NAD) Ultrasound: Report Reviewed (50-69% left common carotid Left patent AVF) Problem List - Problems (1) Malfunction of arteriovenous dialysis fistula Code(s): T82.590A - [facility] COMPL OF SURGICALLY CREATED ARTERIOVENOUS FISTULA, INIT Qualifiers: Encounter type: subsequent encounter Qualified Code(s): T82.590D - Other mechanical complication of surgically created arteriovenous fistula, subsequent encounter (2) Syncope Code(s): R55 - SYNCOPE AND COLLAPSE Qualifiers: Syncope type: vasovagal syncope Qualified Code(s): R55 - Syncope and collapse (3) Anemia in end-stage renal disease Code(s): N18.6 - END STAGE RENAL DISEASE; D63.1 - ANEMIA IN CHRONIC KIDNEY DISEASE (4) Diabetes Code(s): E11.9 - TYPE 2 DIABETES MELLITUS WITHOUT COMPLICATIONS Qualifiers: Diabetes mellitus type: type 2 (5) ESRD (end stage renal disease) on dialysis Code(s): N18.6 - END STAGE RENAL DISEASE; Z99.2 - DEPENDENCE ON RENAL DIALYSIS (6) Hypertensive urgency Code(s): I16.0 - HYPERTENSIVE URGENCY (7) Pre-procedural cardiovascular examination Code(s): Z01.810 - ENCOUNTER FOR PREPROCEDURAL CARDIOVASCULAR EXAMINATION Assessment/Plan 1. Vasovagal near syncope, not orthostatic 2. ESRD on HD plan for LUE venogram possible venoplasty of Left Upper Extremity AVF 3. Hypertensive heart disease 4. Hyperlipidemia 5. Pre-procedural cardiovascular evaluation P: 1. Obtain outpatient cardiovascular work-up records from outpatient lead ramp agent for review and risk stratification, son reports echo and stress testing within last 6 months, reportedly unremarkable 2. Continue Norvasc 10 qd, Pravachol 40 qd, hydralazine 75 tid, resume ASA 81 qd once post-procedure hemostasis achieved 3. HD and Lasix 40 qd per renal 4. Thank you for consultative opportunity
[2018-08-26] MEDS ORDERED: amLODIPine BESYLATE 5 MG TABLET (FP) ONE (12:15)
[2018-08-26] MEDS ORDERED: FUROSEMIDE 40 MG TABLET (FP) ONE (12:15)
[2018-08-26] MEDS ORDERED: HEPARIN NA (PORCINE) 5,000 UNITS/ML 1ML VIAL IVPUSH SCH ×2 (13:04→13:15)
[2018-08-26] MEDS ORDERED: SODIUM CHLORIDE 250 ML IV PRN ×2 (13:04→18:13)
--- NOTE | 2018-08-26 13:04 | CONSULT ---
Consult - text type - Consultation Consultation Note: Renal Consult for ESRD on HD with Pre-syncope This is a 82 year old woman with hx of ESRD on HD (MWF), Hypertension, Hyperlipidemia who presented from the vascular surgeons office with pre-syncope. Pt was referred to vascular for evaluation of prolonged bleeding from AVF post dialysis. Prior to any procedure being done pt started to experience dizziness but denies any LOC. Currently she feels fine, no dizziness, CP, palpitations, N/V. Denies any fever or chills. Last dialysis was Thursday. PMhx: as above Allergies: NKDA Family Hx: NC Social Hx: No T/A/D ROS: as per HPI, all other pertinent ros negative Home Medications Medication Instructions Recorded Amlodipine Besylate [Norvasc -] 10 mg PO DAILY 12/16/13 Pravastatin Sodium [Pravachol -] 40 mg PO HS 12/16/13 Hydralazine HCl 75 mg PO TID 06/09/18 Allopurinol [Zyloprim -] 100 mg PO DAILY 08/25/18 Furosemide 40 mg PO DAILY 08/25/18 Intake & Output 08/23/18 08/24/18 08/25/18 08/26/18 23:59 23:59 23:59 23:59 Weight 123 kg NAD awake and alert on NC O2 RRR, No M/R CTA, no rales or wheeze soft NT/ND No LE edema, clubbing or cyanosis left arm AVG + thrill No focal neurologic defects CBC, BMP 08/25/18 12:50 08/25/18 14:39 Current Medications Allopurinol (Zyloprim -) 100 mg PO DAILY [facility] Amlodipine Besylate (Norvasc -) 10 mg PO DAILY [facility] Last Admin: 08/26/18 12:21 Dose: 10 mg Atorvastatin Calcium (Lipitor -) 10 mg PO [facility] Last Admin: 08/26/18 00:51 Dose: 10 mg Furosemide (Lasix -) 40 mg PO DAILY [facility] Last Admin: 08/26/18 12:21 Dose: 40 mg 82 year old woman with hx of ESRD on HD (MWF), Hypertension, Hyperlipidemia who presented from the vascular surgeons office with pre-syncope. #Pre-syncope r/o CVA/TIA #ESRD on HD #Suspected AVF stenosis w/o complete occlusion #Hypertension #Hyperlipidemia Check CT of the head Doppler showed mild stenosis will plan for HD toady via AVG will use Heparin with dialysis if CT head is negative vascular surgery following, to have venoplasty tomorrow. Continue Amlodpine and Lasix Tele monitoring as per Cardiology Thank you Will follow Calixto Bailey DO
[2018-08-26] MEDS ORDERED: MIDAZOLAM HCL 2 MG/2 ML SINGLE DOSE VIAL ONE (16:29)
[2018-08-26] MEDS ORDERED: PROPOFOL 20 ML ONE ×3 (16:30)
--- NOTE | 2018-08-26 16:51 | PN ---
Progress Note, Physician - Current Medication List Current Medications: Active Medications Allopurinol (Zyloprim -) 100 mg PO DAILY [facility] Amlodipine Besylate (Norvasc -) 10 mg PO DAILY [facility] Last Admin: 08/26/18 12:21 Dose: 10 mg Atorvastatin Calcium (Lipitor -) 10 mg PO HS [facility] Last Admin: 08/26/18 00:51 Dose: 10 mg Furosemide (Lasix -) 40 mg PO DAILY [facility] Last Admin: 08/26/18 12:21 Dose: 40 mg Heparin Sodium (Porcine) (Heparin -) 500 unit IVPUSH ONCE [facility] Stop: 08/26/18 18:00 Sodium Chloride (Normal Saline -) 250 mls @ 3,000 mls/hr IV PRN PRN PRN Reason: Hypotension during Dialysis Stop: 08/27/18 13:05 - Objective Vital Signs: Vital Signs Temperature 98.5 F 08/26/18 09:29 Pulse Rate 53 L 08/26/18 13:09 Respiratory Rate 16 08/26/18 13:09 Blood Pressure 194/57 H 08/26/18 13:09 O2 Sat by Pulse Oximetry (%) 98 08/26/18 13:09 Constitutional: Yes: No Distress HENT: Yes: Atraumatic Neck: Yes: Supple Cardiovascular: Yes: Regular Rate and Rhythm Respiratory: Yes: CTA Bilaterally Gastrointestinal: Yes: Normal Bowel Sounds Extremities: Yes: WNL Edema: No Neurological: Yes: Alert, Oriented Labs: CBC, BMP 08/25/18 12:50 08/25/18 14:39 INR, PTT INR 0.96 (0.83-1.09) 08/25/18 12:50 Problem List - Problems (1) Syncope Assessment/Plan: resolved Code(s): R55 - SYNCOPE AND COLLAPSE Qualifiers: Syncope type: vasovagal syncope Qualified Code(s): R55 - Syncope and collapse (2) Clotted renal dialysis AV graft Assessment/Plan: for OR with dr aguillon Code(s): T82.868A - THROMBOSIS DUE TO VASCULAR PROSTH DEV/GRFT, INIT (3) Diabetes Code(s): E11.9 - TYPE 2 DIABETES MELLITUS WITHOUT COMPLICATIONS Qualifiers: Diabetes mellitus type: type 2 (4) ESRD (end stage renal disease) on dialysis Assessment/Plan: on hd Code(s): N18.6 - END STAGE RENAL DISEASE; Z99.2 - DEPENDENCE ON RENAL DIALYSIS (5) HTN (hypertension) Assessment/Plan: on meds stable Code(s): I10 - ESSENTIAL (PRIMARY) HYPERTENSION
--- NOTE | 2018-08-26 17:49 | OP ---
Operative Note - Note: Operative Date: 08/26/18 Pre-Operative Diagnosis: Malfunction AV graft Operation: Venoplasty central dialysis access. Findings: Patent AV graft with 80% stenosis of stents in left axillary and subclavian veins Post-Operative Diagnosis: Same as Pre-op Surgeon: Juan Momin Anesthesiologist/COMPUTATIONAL LINGUIST: Daisy Bhatt Anesthesia: Fractional Estimated Blood Loss (mls): 10
[2018-08-26] MEDS ORDERED: ONDANSETRON 4 MG/2 ML VIAL IVPUSH PRN (18:38)
[2018-08-26] MEDS ORDERED: SODIUM CHLORIDE 1,000 ML IV SCH (18:45)
--- NOTE | 2018-08-26 19:08 | OP ---
DATE OF OPERATION: 08/26/2018 SURGEON: Juan Momin MD PROCEDURE: Venogram and venoplasty of left arm arteriovenous graft and central veins. PREOPERATIVE DIAGNOSIS: Elevated venous pressures. POSTOPERATIVE DIAGNOSIS: Stenosis of intravascular stents. ANESTHESIA: Fractional. ANESTHESIOLOGIST: Daisy Bhatt MD OPERATIVE FINDINGS: The left upper arm AV graft was patent with brisk flow. There were multiple areas of severe stenosis of greater than 80% in the left axillary and subclavian vein stents. There was no evidence of narrowing in the innominate or superior vena cava. DESCRIPTION OF PROCEDURE: The patient was brought to the operating room. The left arm was prepped with ChloraPrep. Timeout was performed. Next, 1% lidocaine was infiltrated over the distal end of the AV graft in the left upper arm, and the graft was cannulated with a micropuncture needle. A wire was passed proximally, and the needle was exchanged for a 5-Bangladeshi catheter. Angiography was performed through the catheter with the above-noted findings. The catheter was then exchanged over a wire for a 6-Bangladeshi sheath. A wire was advanced proximally under fluoroscopic guidance through the stents and into the superior vena cava. An 8-mm x 8 cm angioplasty balloon was then used to dilate the entire length of the stents using a pressure insufflator at nominal pressure. Completion imaging revealed decrease in the areas of stenosis with brisk flow. The wire and sheath were removed, and bleeding controlled with a mattress suture of 3-0 nylon on the skin. Sterile dressings were applied, and the patient was taken to the recovery room in stable condition. Nell [id number]
[2018-08-26] MEDS: ATORVASTATIN CA 10 MG TABLET (FP) PO SCH (21:17)
[2018-08-27] MEDS ORDERED: HEPARIN NA (PORCINE) 5,000 UNITS/ML 1ML VIAL IVPUSH ONE (06:00)
[2018-08-27] MEDS: HEPARIN NA (PORCINE) 5,000 UNITS/ML 1ML VIAL IVPUSH SCH (09:26)
--- NOTE | 2018-08-27 10:34 | PN ---
Progress Note (short form) - Note Progress Note: POD #1 s/p Venoplasty central dialysis access 2/2 malfunction AVG. Patient currently getting HD via AVG. Good flow per HD RN. Patient is cleared from a Vascular standpoint for discharge. Patient to f/u as out-patient in Dr. Momin's office. On behalf of Dr. Momin, thank you for the opportunity to participate in your patient's care.
[2018-08-27] MEDS: amLODIPine BESYLATE 10 MG TABLET (FP) PO SCH (10:54)
--- NOTE | 2018-08-27 11:09 | PN ---
Progress Note (short form) - Note Progress Note: Pt is day 1 s/p venogram/plasty. Pt is currently receiving dialysis through the AVG; flow is reported as excellent, by the looseleaf binder coverer. No anesthetic issues/complications.
--- NOTE | 2018-08-27 11:36 | PN ---
Progress Note, Physician History of Present Illness: No further near syncope, tolerated LUE venoplasty, BP remains elevated. - Current Medication List Current Medications: Active Medications Allopurinol (Zyloprim -) 100 mg PO DAILY [facility] Amlodipine Besylate (Norvasc -) 10 mg PO DAILY [facility] Last Admin: 08/27/18 10:54 Dose: 10 mg Atorvastatin Calcium (Lipitor -) 10 mg PO HS [facility] Last Admin: 08/26/18 21:17 Dose: 10 mg Furosemide (Lasix -) 40 mg PO DAILY [facility] Sodium Chloride (Normal Saline -) 250 mls @ 3,000 mls/hr IV PRN PRN PRN Reason: Hypotension during Dialysis Stop: 08/27/18 13:05 Sodium Chloride (Normal Saline -) 1,000 mls @ 75 mls/hr IV ASDIR [facility] Last Admin: 08/26/18 21:18 Dose: 75 mls/hr - Objective Vital Signs: Vital Signs Temperature 98.4 F 08/27/18 07:20 Pulse Rate 67 08/27/18 11:33 Respiratory Rate 18 08/27/18 11:33 Blood Pressure 195/72 H 08/27/18 11:33 O2 Sat by Pulse Oximetry (%) 96 08/27/18 02:00 Constitutional: Yes: No Distress, Calm Neck: Yes: Supple Cardiovascular: Yes: Regular Rate and Rhythm Respiratory: Yes: Regular, CTA Bilaterally Gastrointestinal: Yes: Normal Bowel Sounds, Soft Edema: No Labs: CBC, BMP 08/25/18 12:50 08/25/18 14:39 INR, PTT INR 0.96 (0.83-1.09) 08/25/18 12:50 - ....Imaging EKG: Report Reviewed (Tele: SB) Problem List - Problems (1) Malfunction of arteriovenous dialysis fistula Code(s): T82.590A - [facility] COMPL OF SURGICALLY CREATED ARTERIOVENOUS FISTULA, INIT Qualifiers: Encounter type: subsequent encounter Qualified Code(s): T82.590D - Other mechanical complication of surgically created arteriovenous fistula, subsequent encounter (2) Syncope Code(s): R55 - SYNCOPE AND COLLAPSE Qualifiers: Syncope type: vasovagal syncope Qualified Code(s): R55 - Syncope and collapse (3) Anemia in end-stage renal disease Code(s): N18.6 - END STAGE RENAL DISEASE; D63.1 - ANEMIA IN CHRONIC KIDNEY DISEASE (4) Diabetes Code(s): E11.9 - TYPE 2 DIABETES MELLITUS WITHOUT COMPLICATIONS Qualifiers: Diabetes mellitus type: type 2 (5) ESRD (end stage renal disease) on dialysis Code(s): N18.6 - END STAGE RENAL DISEASE; Z99.2 - DEPENDENCE ON RENAL DIALYSIS (6) Hypertensive urgency Code(s): I16.0 - HYPERTENSIVE URGENCY Assessment/Plan 1. Vasovagal near syncope, not orthostatic 2. ESRD on HD s/p LUE venogram and venoplasty of Left Upper Extremity AVF 3. Hypertensive heart disease 4. Hyperlipidemia P: 1. Obtain outpatient cardiovascular work-up records from outpatient glass technician/installer for review and risk stratification, son reports echo and stress testing within last 6 months, reportedly unremarkable 2. Continue Norvasc 10 qd, Pravachol 40 qd, add Diovan 80 qd with uptitration as tolerated, resume ASA 81 qd once post-procedure hemostasis achieved 3. HD and Lasix 40 qd per renal
--- NOTE | 2018-08-27 12:01 | DS ---
Physical Examination Vital Signs: Vital Signs Temperature 98.4 F 08/27/18 07:20 Pulse Rate 67 08/27/18 11:33 Respiratory Rate 18 08/27/18 11:33 Blood Pressure 195/72 H 08/27/18 11:33 O2 Sat by Pulse Oximetry (%) 96 08/27/18 02:00 Labs: CBC, BMP 08/25/18 12:50 08/25/18 14:39 Discharge Summary Reason For Visit: Syncope Current Active Problems Malfunction of arteriovenous dialysis fistula (Acute) Pre-procedural cardiovascular examination (Acute) Syncope (Acute) Condition: Stable - Instructions Referrals: Chely Iyer MD [Primary Care Provider] - - Home Medications Comprehensive Discharge Medication List: Ambulatory Orders Amlodipine Besylate [Norvasc -] 10 mg PO DAILY 12/16/13 Pravastatin Sodium [Pravachol -] 40 mg PO HS 12/16/13 Hydralazine HCl 75 mg PO TID 06/09/18 Allopurinol [Zyloprim -] 100 mg PO DAILY 08/25/18 Furosemide 40 mg PO DAILY 08/25/18 dc
[2018-08-27] MEDS: VALSARTAN 80 MG TABLET (UD) PO SCH (13:00)
[2018-08-27] MEDS: ALLOPURINOL 100 MG TABLET (FP) PO SCH (14:00)
--- NOTE | 2018-08-27 15:20 | PN ---
Progress Note (short form) - Note Progress Note: Renal follow up for ESRD Pt seen and examined at the bedside no acute complaints BP has been high, Loartan added, BP now 179/56 No blurry vision, cp, abd pain Vital Signs Temperature 98.4 F 08/27/18 07:20 Pulse Rate 67 08/27/18 11:33 Respiratory Rate 18 08/27/18 11:33 Blood Pressure 195/72 H 08/27/18 11:33 O2 Sat by Pulse Oximetry (%) 96 08/27/18 02:00 Intake & Output 08/24/18 08/25/18 08/26/18 08/27/18 23:59 23:59 23:59 23:59 Intake Total 50 1020 Output Total 10 Balance 40 1020 Weight 123 kg 123 kg NAD RRR, No M/R CTA, no rales or wheeze soft NT/ND No LE edema, clubbing or cyanosis left arm AVF CBC, BMP 08/25/18 12:50 08/25/18 14:39 Current Medications Allopurinol (Zyloprim -) 100 mg PO DAILY [facility] Last Admin: 08/27/18 14:00 Dose: 100 mg Amlodipine Besylate (Norvasc -) 10 mg PO DAILY [facility] Last Admin: 08/27/18 10:54 Dose: 10 mg Atorvastatin Calcium (Lipitor -) 10 mg PO HS [facility] Last Admin: 08/26/18 21:17 Dose: 10 mg Furosemide (Lasix -) 40 mg PO DAILY [facility] Valsartan (Diovan -) 80 mg PO DAILY [facility] Last Admin: 08/27/18 13:00 Dose: 80 mg 82 year old woman with hx of ESRD on HD (MWF), Hypertension, Hyperlipidemia who presented from the vascular surgeons office with pre-syncope. 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
[2018-08-27] MEDS ORDERED: ACETAMINOPHEN 325 MG TABLET (FP) ONE (17:10)
[2018-08-27] MEDS ORDERED: ACETAMINOPHEN 325 MG TABLET (FP) PO PRN (17:13)
[2018-08-27] MEDS: hydrALAZINE HCL 50 MG TABLET (FP) PO SCH (17:15)
[2018-08-27] MEDS: ATORVASTATIN CA 10 MG TABLET (FP) PO SCH (22:31)
--- NOTE | 2018-08-27 22:55 | PN ---
Progress Note, Physician - Current Medication List Current Medications: Active Medications Acetaminophen (Tylenol -) 650 mg PO Q6H PRN PRN Reason: FEVER Last Admin: 08/27/18 17:25 Dose: 650 mg Allopurinol (Zyloprim -) 100 mg PO DAILY [facility] Last Admin: 08/27/18 14:00 Dose: 100 mg Amlodipine Besylate (Norvasc -) 10 mg PO DAILY [facility] Last Admin: 08/27/18 10:54 Dose: 10 mg Atorvastatin Calcium (Lipitor -) 10 mg PO HS [facility] Last Admin: 08/27/18 22:31 Dose: 10 mg Furosemide (Lasix -) 40 mg PO DAILY [facility] Hydralazine HCl (Apresoline -) 50 mg PO BID [facility] Last Admin: 08/27/18 17:15 Dose: 50 mg Valsartan (Diovan -) 80 mg PO DAILY [facility] Last Admin: 08/27/18 13:00 Dose: 80 mg - Objective Vital Signs: Vital Signs Temperature 100.3 F H 08/27/18 17:00 Pulse Rate 62 08/27/18 17:00 Respiratory Rate 18 08/27/18 18:00 Blood Pressure 191/67 H 08/27/18 17:00 O2 Sat by Pulse Oximetry (%) 96 08/27/18 18:00 Labs: CBC, BMP 08/25/18 12:50 08/25/18 14:39 INR, PTT INR 0.96 (0.83-1.09) 08/25/18 12:50
[2018-08-28] MEDS: hydrALAZINE HCL 50 MG TABLET (FP) PO SCH ×2 (02:00→10:01)
--- NOTE | 2018-08-28 08:43 | PN ---
Progress Note (short form) - Note Progress Note: Chief Complaint: Events noted, notes reviewed, denies any chest pain or dyspnea History of Present Illness: Seen and examined on telemetry. Events noted, notes reviewed, denies any chest pain or dyspnea Current Medications: Current Medications Acetaminophen (Tylenol -) 650 mg PO Q6H PRN PRN Reason: FEVER Last Admin: 08/27/18 17:25 Dose: 650 mg Allopurinol (Zyloprim -) 100 mg PO DAILY [facility] Last Admin: 08/28/18 10:00 Dose: 100 mg Amlodipine Besylate (Norvasc -) 10 mg PO DAILY [facility] Last Admin: 08/28/18 10:00 Dose: 10 mg Atorvastatin Calcium (Lipitor -) 10 mg PO HS [facility] Last Admin: 08/27/18 22:31 Dose: 10 mg Furosemide (Lasix -) 40 mg PO DAILY [facility] Last Admin: 08/28/18 10:01 Dose: 40 mg Hydralazine HCl (Apresoline -) 50 mg PO BID [facility] Last Admin: 08/28/18 10:01 Dose: 50 mg Valsartan (Diovan -) 80 mg PO DAILY [facility] Last Admin: 08/28/18 10:00 Dose: 80 mg Review of Systems Constitutional: denies Chills or Fever Respiratory: denies Cough or Sputum Production Cardiovascular: As noted above Gastrointestinal: denies Nausea, Vomiting, Diarrhea, Constipation or Abdominal Pain Genitourinary: denies Frequency or Urgency Musculoskeletal: No symptoms reported - Objective Vital Signs: Last Vital Signs Temp Pulse Resp BP Pulse Ox 97.8 F 58 L 20 180/89 H 98 08/28/18 10:00 08/28/18 10:00 08/28/18 10:00 08/28/18 10:00 08/28/18 08:38 Intake & Output 08/25/18 08/26/18 08/27/18 08/28/18 23:59 23:59 23:59 23:59 Intake Total 50 1260 200 Output Total 10 Balance 40 1260 200 Weight 271 lb 2.697 oz 271 lb 2.697 oz 122 lb 9.6 oz Neck: Supple Negative JVD No bruit Respiratory: Diminished breath sounds at the bases Cardiovascular: S1, S2 Regular Rate Rhythm Gastrointestinal: Soft Benign Normal Bowel Sounds Ext: Edema Labs: CBC, BMP 08/25/18 12:50 08/25/18 14:39 Hepatic Panel Total Bilirubin 0.3 mg/dL (0.2-1) 08/25/18 14:39 AST 11 U/L (15-37) L 08/25/18 14:39 ALT 11 U/L (13-61) L 08/25/18 14:39 Alkaline Phosphatase 93 U/L (45-117) 08/25/18 14:39 Albumin 3.4 g/dl (3.4-5.0) 08/25/18 14:39 Assessment/Plan ASSESSMENT: 1. Vasovagal near syncope, no recurrence 2. Hypertensive heart disease, labile blood pressure not at goal 4. Hyperlipidemia 4. ESRD on HD post LUE venogram/venoplasty of Left Upper Extremity AVF PLAN: 1. Obtain outpatient cardiovascular work-up records, non obtained thus far 2. Continue Norvasc 3. Continue Diovan and tiatrate dosage as tolerated and needed 4. Continue Hydralazine 5.Continue Pravachol 6. Continue/resume ASA, unless contraindicated 7. Continue Lasix as per renal service Elia Fisher MD
[2018-08-28] MEDS: VALSARTAN 80 MG TABLET (UD) PO SCH (10:00)
[2018-08-28] MEDS: ALLOPURINOL 100 MG TABLET (FP) PO SCH (10:00)
[2018-08-28] MEDS: amLODIPine BESYLATE 10 MG TABLET (FP) PO SCH (10:00)
[2018-08-28] MEDS: FUROSEMIDE 40 MG TABLET (FP) PO SCH (10:01)
[2018-08-28] MEDS ORDERED: VALSARTAN 80 MG TABLET (UD) PO ONE (10:56)
[2018-08-28] MEDS ORDERED: VALSARTAN 160 MG TABLET (UD) PO SCH (10:56)
[2018-08-28 11:14] LABS: HBSAG SCREEN Negative (Negative); HEP A AB, IGM Negative (Negative); HEP B CORE AB, TOT Negative (Negative)
--- NOTE | 2018-08-28 11:23 | PN ---
Progress Note (short form) - Note Progress Note: Renal follow up for ESRD Pt seen and examined at the bedside no acute complaints BP high this am but just took all her meds no MCARTHUR, CP, N/V/D, blurry vision s/p dialysis yesterday Vital Signs Temperature 97.8 F 08/28/18 10:00 Pulse Rate 58 L 08/28/18 10:00 Respiratory Rate 20 08/28/18 10:00 Blood Pressure 180/89 H 08/28/18 10:00 O2 Sat by Pulse Oximetry (%) 98 08/28/18 08:38 Intake & Output 08/25/18 08/26/18 08/27/18 08/28/18 23:59 23:59 23:59 23:59 Intake Total 50 1260 200 Output Total 10 Balance 40 1260 200 Weight 123 kg 123 kg 55.61 kg NAD RRR, No M/R CTA, no rales or wheeze soft NT/ND No LE edema, clubbing or cyanosis left arm AVF CBC, BMP 08/25/18 12:50 08/25/18 14:39 Current Medications Acetaminophen (Tylenol -) 650 mg PO Q6H PRN PRN Reason: FEVER Last Admin: 08/27/18 17:25 Dose: 650 mg Allopurinol (Zyloprim -) 100 mg PO DAILY [facility] Last Admin: 08/28/18 10:00 Dose: 100 mg Amlodipine Besylate (Norvasc -) 10 mg PO DAILY [facility] Last Admin: 08/28/18 10:00 Dose: 10 mg Atorvastatin Calcium (Lipitor -) 10 mg PO HS [facility] Last Admin: 08/27/18 22:31 Dose: 10 mg Furosemide (Lasix -) 40 mg PO DAILY [facility] Last Admin: 08/28/18 10:01 Dose: 40 mg Hydralazine HCl (Apresoline -) 50 mg PO BID [facility] Last Admin: 08/28/18 10:01 Dose: 50 mg Valsartan (Diovan -) 160 mg PO DAILY [facility] 82 year old woman with hx of ESRD on HD (MWF), Hypertension, Hyperlipidemia who presented from the vascular surgeons office with pre-syncope. 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
[2018-08-28 14:37] VITALS: BP 135/54; PULSE 65; TEMP 99
--- NOTE | 2018-08-28 15:01 | DS ---
Physical Examination Vital Signs: Vital Signs Temperature 99 F 08/28/18 14:00 Pulse Rate 65 08/28/18 14:00 Respiratory Rate 20 08/28/18 14:00 Blood Pressure 135/54 L 08/28/18 14:00 O2 Sat by Pulse Oximetry (%) 98 08/28/18 08:38 Constitutional: Yes: No Distress HENT: Yes: Atraumatic Neck: Yes: Supple Cardiovascular: Yes: Regular Rate and Rhythm Respiratory: Yes: CTA Bilaterally Gastrointestinal: Yes: Normal Bowel Sounds Extremities: Yes: WNL Edema: No Neurological: Yes: Alert, Oriented Labs: CBC, BMP 08/25/18 12:50 08/25/18 14:39 Discharge Summary Reason For Visit: Syncope Current Active Problems Malfunction of arteriovenous dialysis fistula (Acute) Pre-procedural cardiovascular examination (Acute) Syncope (Acute) Condition: Stable - Instructions Referrals: Chely Iyer MD [Primary Care Provider] - - Home Medications Comprehensive Discharge Medication List: Ambulatory Orders Amlodipine Besylate [Norvasc -] 10 mg PO DAILY 12/16/13 Pravastatin Sodium [Pravachol -] 40 mg PO HS 12/16/13 Allopurinol [Zyloprim -] 100 mg PO DAILY 08/25/18 Furosemide 40 mg PO DAILY 08/25/18 Valsartan [Diovan] 160 mg PO DAILY #30 tablet 08/28/18 hydrALAZINE HCL [Apresoline -] 50 mg PO BID #60 tablet 08/28/18 sd home
== END 2018-08-28 17:20 | disposition home or self-care (01) | DRG 252 ==
LOC: JER 11:44 → JERBED 17:39 → J4W 08-26 20:40 → OBSVTOIN 08-28 10:10
PROVIDERS: ADMIT Internal Medicine; ATTEND Internal Medicine
PROC: B51NZZA Fluoroscopy of Left Upper Extremity Veins, Guidance (ICD-10-PCS; 2018-08-26)
PROC: 057Y3ZZ Dilation of Upper Vein, Percutaneous Approach (ICD-10-PCS; principal; 2018-08-26 16:30)
PROC: 5A1D70Z Performance of Urinary Filtration, Intermittent, Less than 6 Hours Per Day (ICD-10-PCS; 2018-08-27)
DX: T82.590A Other mechanical complication of surgically created arteriovenous fistula, initial encounter (principal); N18.6 End stage renal disease; I13.11 Hypertensive heart and chronic kidney disease without heart failure, with stage 5 chronic kidney disease, or end stage renal disease; Z99.2 Dependence on renal dialysis; E78.5 Hyperlipidemia, unspecified; R55 Syncope and collapse; I16.0 Hypertensive urgency; E11.22 Type 2 diabetes mellitus with diabetic chronic kidney disease; D63.1 Anemia in chronic kidney disease; Y83.9 Surgical procedure, unspecified as the cause of abnormal reaction of the patient, or of later complication, without mention of misadventure at the time of the procedure
CPT/HCPCS: 36415; 70450-TC; 71045-TC-FY; 76000-TC-FY; 80053; 81003; 81015; 82550; 82553; 83735; 84484; 85025; 85610; 85730; 86704; 86706; 86708; 86803; 87086; 87340; 93005; 93010; 93880-TC; 93971; 94760; 99285-25; G0378; J1644; J7030

== ENCOUNTER 2018-11-03 19:25 | Inpatient (IN) | payer OTHER, MEDICARE ==
--- NOTE | 2018-11-03 19:43 | PDOC ---
Rapid Medical Evaluation Time Seen by Provider: 11/03/18 19:41 Medical Evaluation: Allergies Allergy/AdvReac Type Severity Reaction Status Date / Time No Known Allergies Allergy Verified 08/25/18 11:50 11/03/18 19:41 I have performed a brief in-person evaluation of this patient. The patient presents with a chief complaint of: dialysis AV fistula not working , pt unable to have dialysis Pertinent physical exam findings: NAD I have ordered the following:CBC CMP The patient will proceed to the ED for further evaluation. Discharge Disposition - Diagnosis ESRD (end stage renal disease) on dialysis - Referrals - Patient Instructions - Post Discharge Activity
--- NOTE | 2018-11-03 20:11 | PDOC ---
History of Present Illness - General Chief Complaint: Dialysis Shunt Problem Stated Complaint: DIALYSIS Time Seen by Provider: 11/03/18 19:41 - History of Present Illness Initial Comments: 11/03/18 20:09 82 year old female, with a significant past medical history of HTN, Hypercholesterolemia, and ESRD on HD (m/w/f) last on Thursday11/01/18 who presents to the emergency department for clogged fistula, couldnt get dialysis today. Poor historian, doesn't remember Patient denies nausea, emesis, diaphoresis, flushing, chest pain, dyspnea, palpitations. Allergies: NKA Past surgical history: AV Fistula, L arm and Hysterectomy Social history: None reported PCP: Dr. Amado ([place]) Procurement Professional Logistics: Dr. Chely Iyer Electric Tripper Machine Operator: Dr. Leung [facility] Past History - Past Medical History Allergies/Adverse Reactions: Allergies Allergy/AdvReac Type Severity Reaction Status Date / Time No Known Allergies Allergy Verified 08/25/18 11:50 Home Medications: Ambulatory Orders Amlodipine Besylate [Norvasc -] 10 mg PO DAILY 12/16/13 Pravastatin Sodium [Pravachol -] 40 mg PO HS 12/16/13 Allopurinol [Zyloprim -] 100 mg PO DAILY 08/25/18 Furosemide 40 mg PO DAILY 08/25/18 hydrALAZINE HCL [Apresoline -] 75 mg PO TID 11/03/18 Anemia: Yes Asthma: No Cancer: No Cardiac Disorders: No CVA: Yes COPD: No CHF: No Dementia: No Diabetes: Yes (no medication) Dialysis: Yes (m,w,f) GI Disorders: No HTN: Yes Hypercholesterolemia: Yes Liver Disease: No Seizures: No Thyroid Disease: Yes - Surgical History Abdominal Surgery: Yes (Hysterectomy) Appendectomy: Yes Cardiac Surgery: No Cholecystectomy: No Lung Surgery: No Neurologic Surgery: No Orthopedic Surgery: No - Immunization History Immunization Up to Date: No - Suicide/Smoking/Psychosocial Hx Smoking History: Never smoked Have you smoked in the past 12 months: No Information on smoking cessation initiated: No Hx Alcohol Use: No Drug/Substance Use Hx: No Substance Use Type: None Hx Substance Use Treatment: No Review of Systems - Review of Systems Able to Perform ROS?: Yes Is the patient limited Russian proficient: No Constitutional: No: Symptoms Reported HEENTM: No: Symptoms Reported Respiratory: No: Symptoms reported Cardiac (ROS): No: Symptoms Reported ABD/GI: No: Symptoms Reported : No: Symptoms Reported Musculoskeletal: No: Symptoms Reported Integumentary: No: Symptoms Reported All Other Systems: Reviewed and Negative *Physical Exam - Vital Signs Last Vital Signs Temp Pulse Resp BP Pulse Ox 98.0 F 62 16 184/65 H 100 11/03/18 19:45 11/03/18 19:45 11/03/18 19:45 11/03/18 19:45 11/03/18 19:45 - Physical Exam General Appearance: Yes: Nourished, Appropriately Dressed, Thin. No: Apparent Distress HEENT: positive: EOMI, FEI, Normal ENT Inspection Respiratory/Chest: positive: Lungs Clear, Normal Breath Sounds. negative: Chest Tender Cardiovascular: positive: Regular Rhythm, Regular Rate, S1, S2 Gastrointestinal/Abdominal: positive: Normal Bowel Sounds, Flat, Soft. negative : Tender Musculoskeletal: positive: Normal Inspection. negative: CVA Tenderness Extremity: positive: Normal Capillary Refill, Normal Range of Motion. negative : Normal Inspection (no thrill over fistula of left arm) Integumentary: positive: Normal Color, Dry, Warm Neurologic: positive: Fully Oriented, Alert, Normal Mood/Affect, Normal Response , Motor Strength 5/5 ED Treatment Course - LABORATORY CBC & Chemistry Diagram: 11/03/18 19:58 11/03/18 19:58 Medical Decision Making - Medical Decision Making 11/03/18 21:08 Will obtain labs and admit. Spoke to Dr. Momin who will see the patient tomorrow morning. Admitted the patient to Dr. Fan 11/03/18 21:27 *DC/Admit/Observation/Transfer Diagnosis at time of Disposition: ESRD (end stage renal disease) on dialysis, Malfunction of arteriovenous dialysis fistula, Clotted renal dialysis AV graft - Discharge Dispostion Decision to Admit order: Yes - Referrals - Patient Instructions - Post Discharge Activity
--- NOTE | 2018-11-03 20:12 | PDOC ---
Attending Attestation - HPI HPI: 11/03/18 20:14 The patient is a 82 YOF with a PMH of HTN, HLD, and ESRD on hemodialysis (M/W/F ; Last HD on 11/01) who presents to the ER for evaluation of a clogged fistula. Patient was unable to receive her dialysis today secondary to this clogged fistula. Patient is unable to provide further history. She has no other complaints at this time. Allergies: NKDA Past surgical history: AV Fistula on the left arm, hysterectomy Social history: No reported alcohol drug or cigarette use. PCP: Dr. Amado ([place]) Spinner Tender: Dr. Chely Iyer Vascular: Dr. Momin - Physicial Exam PE: 11/03/18 20:14 Agree with resident's exam. <Leonor Sue - Last Filed: 11/03/18 20:14> - Resident Resident Name: Vish Dewey - ED Attending Attestation I have performed the following: I have examined & evaluated the patient, The case was reviewed & discussed with the resident, I agree w/resident's findings & plan - Medical Decision Making 11/03/18 20:31 82-year-old female sent for evaluation after her AV fistula was found to be clotted prohibiting her from getting dialysis Patient has no complaints at this time Call placed to vascular surgery, Dr. Momin who knows the patient from similar visits in the past and has agreed to see her in consultation tomorrow Plan for admission to medical service with nephrology consultation <Melinda Taylor - Last Filed: 11/03/18 20:32>
[2018-11-03 20:24] LABS: BASO % 0.6 % (0-2.0); EOS % 2.5 % (0-4.5); HEMATOCRIT 32.6 % (32.4-45.2); HEMOGLOBIN 10.9 GM/dL (10.7-15.3); LYMPH % 20.1 % (8-40); MCH 30.2 pg (25.7-33.7); MCHC 33.4 g/dl (32.0-36.0); MEAN CELL VOLUME 90.2 fl (80-96); MEAN PLT VOLUME 7.1 fl (7.5-11.1); MONO % 10.7 % (3.8-10.2); NEUT % 66.1 % (42.8-82.8); PLATELET COUNT 641 K/MM3 (134-434); RBC 3.62 M/mm3 (3.60-5.2); RDW 16.4 % (11.6-15.6); WHITE BLOOD COUNT 9.8 K/mm3 (4.0-10.0)
--- NOTE | 2018-11-03 21:39 | HP ---
Admitting History and Physical - Primary Care Physician PCP: Andrea Fan - Admission History of Present Illness: 82 year old female, with a significant past medical history of HTN, Hypercholesterolemia, and ESRD on HD (m/w/f) last on Thursday11/01/18 who presents to the emergency department for clogged fistula, couldnt get dialysis today. Poor historian, doesn't remember - Past Medical History INSERT CUTTER: Yes: CVA Cardiovascular: Yes: HTN, Hyperlipdemia Renal/: Yes: Renal Failure, Hemodialysis Endocrine: Yes: Diabetes Mellitus (diet controlled) - Past Surgical History Past Surgical History: Yes: AV Fistula/Graft, Hysterectomy - Smoking History Smoking history: Never smoked Have you smoked in the past 12 months: No - Alcohol/Substance Use Hx Alcohol Use: No - Social History ADL: Family Assistance Home Medications - Allergies Allergies/Adverse Reactions: Allergies Allergy/AdvReac Type Severity Reaction Status Date / Time No Known Allergies Allergy Verified 08/25/18 11:50 - Home Medications Home Medications: Ambulatory Orders Amlodipine Besylate [Norvasc -] 10 mg PO DAILY 12/16/13 Pravastatin Sodium [Pravachol -] 40 mg PO HS 12/16/13 Allopurinol [Zyloprim -] 100 mg PO DAILY 08/25/18 Furosemide 40 mg PO DAILY 08/25/18 hydrALAZINE HCL [Apresoline -] 75 mg PO TID 11/03/18 Physical Examination Vital Signs: Vital Signs Temperature 98.0 F 11/03/18 19:45 Pulse Rate 62 11/03/18 19:45 Respiratory Rate 16 11/03/18 19:45 Blood Pressure 184/65 H 11/03/18 19:45 O2 Sat by Pulse Oximetry (%) 100 11/03/18 19:45 Constitutional: Yes: No Distress HENT: Yes: Atraumatic Neck: Yes: Supple Cardiovascular: Yes: Regular Rate and Rhythm Respiratory: Yes: CTA Bilaterally Gastrointestinal: Yes: Normal Bowel Sounds Extremities: Yes: WNL Edema: No Peripheral Pulses WNL: Yes Neurological: Yes: Alert, Oriented Labs: CBC, BMP 11/03/18 19:58 Problem List - Problems (1) Clotted renal dialysis AV graft Assessment/Plan: for OR Code(s): T82.868A - THROMBOSIS DUE TO VASCULAR PROSTH DEV/GRFT, INIT (2) ESRD (end stage renal disease) on dialysis Assessment/Plan: on hd Code(s): N18.6 - END STAGE RENAL DISEASE; Z99.2 - DEPENDENCE ON RENAL DIALYSIS (3) Diabetes Assessment/Plan: monitor Code(s): E11.9 - TYPE 2 DIABETES MELLITUS WITHOUT COMPLICATIONS (4) HTN (hypertension) Code(s): I10 - ESSENTIAL (PRIMARY) HYPERTENSION Assessment/Plan Laboratory Tests 11/03/18 11/03/18 19:58 19:58 WBC 9.8 RBC 3.62 Hgb 10.9 Hct 32.6 MCV 90.2 MCH 30.2 MCHC 33.4 RDW 16.4 H Plt Count 641 H D MPV 7.1 L Absolute Neuts (auto) 6.5 Neutrophils % 66.1 Lymphocytes % 20.1 D Monocytes % 10.7 H D Eosinophils % 2.5 D Basophils % 0.6 Nucleated RBC % 0 Sodium Cancelled Potassium Cancelled Chloride Cancelled Carbon Dioxide Cancelled Anion Gap Cancelled BUN Cancelled Creatinine Cancelled Creat Clearance w eGFR Cancelled Random Glucose Cancelled Calcium Cancelled Total Bilirubin Cancelled AST Cancelled ALT Cancelled Alkaline Phosphatase Cancelled Total Protein Cancelled Albumin Cancelled Active Medications Generic Name Dose Route Start Last Admin Trade Name Freq PRN Reason Stop Dose Admin Acetaminophen 650 mg 11/03/18 21:41 Tylenol - PO Q6H PRN FEVER Al Hydroxide/Mg Hydroxide 30 ml 11/04/18 19:41 Mylanta Oral Suspension - PO Q6H PRN DYSPEPSIA Allopurinol 100 mg 11/04/18 10:00 11/04/18 09:37 Zyloprim - PO 100 mg DAILY [facility] Administration Amlodipine Besylate 10 mg 11/04/18 10:00 11/04/18 18:55 Norvasc - PO 10 mg DAILY [facility] Administration Atorvastatin Calcium 10 mg 11/03/18 22:00 11/03/18 22:46 Lipitor - PO 10 mg HS [facility] Administration Furosemide 40 mg 11/04/18 10:00 11/04/18 09:37 Lasix - PO 40 mg DAILY [facility] Administration Hydralazine HCl 75 mg 11/03/18 22:00 11/04/18 18:55 Apresoline - PO Not Given TID [facility] Sodium Chloride 250 mls @ 3,000 mls/hr 11/04/18 12:06 Normal Saline - IV 11/05/18 12:06 PRN PRN Hypotension during Dialysis
[2018-11-03] MEDS ORDERED: ACETAMINOPHEN 325 MG TABLET (FP) PO PRN (21:41)
[2018-11-03 21:57] LABS: ALK PHOS 107 U/L (45-117); ANION GAP 12 MMOL/L (8-16); BILIRUBIN,TOTAL 0.3 mg/dL (0.2-1); BLOOD UREA NITROGEN 45 mg/dL (7-18); CHLORIDE 97 mmol/L (98-107); CO2 22 mmol/L (21-32); CREATININE 6.7 mg/dL (0.55-1.3); GLUCOSE,RANDOM 229 mg/dL (74-106); POTASSIUM 4.8 mmol/L (3.5-5.1); SGOT/AST 14 U/L (15-37); SGPT/ALT 12 U/L (13-61); SODIUM 131 mmol/L (136-145); TOT PROT 7.2 g/dl (6.4-8.2)
[2018-11-03] MEDS ORDERED: hydrALAZINE HCL 25 MG TABLET (FP) ONE (22:28)
[2018-11-03] MEDS ORDERED: ATORVASTATIN CA 10 MG TABLET (FP) ONE (22:28)
[2018-11-03] MEDS: ATORVASTATIN CA 10 MG TABLET (FP) PO SCH (22:46)
[2018-11-03] MEDS: hydrALAZINE HCL 50 MG TABLET (FP) PO SCH (22:46)
[2018-11-04] MEDS ORDERED: amLODIPine BESYLATE 5 MG TABLET (FP) PO ONE (00:35)
[2018-11-04] MEDS ORDERED: amLODIPine BESYLATE 10 MG TABLET (FP) PO ONE (00:37)
[2018-11-04] MEDS ORDERED: amLODIPine BESYLATE 5 MG TABLET (FP) ONE (00:38)
[2018-11-04] MEDS: hydrALAZINE HCL 50 MG TABLET (FP) PO SCH ×3 (05:06→21:24)
[2018-11-04 05:20] VITALS: BMI 21.7
--- NOTE | 2018-11-04 08:45 | CONSULT ---
Consult - text type - Consultation Consultation Note: 82 yo woman with ESRD on HD. She has a left upper arm graft with multiple (6-7 overlapping) stents in the left axillary and subclavian veins. She has had frequent stent stenoses and occlusions requiring intervention. Venoplasty of the stents was done 2 days ago but the graft thrombosed yesterday. She will require a new access with a HeRO device to bypass the chronic stent stenoses. A temporary catheter will be placed for dialysis access today and surgery scheduled for Thursday.
[2018-11-04] MEDS: FUROSEMIDE 40 MG TABLET (FP) PO SCH (09:37)
[2018-11-04] MEDS: ALLOPURINOL 100 MG TABLET (FP) PO SCH (09:37)
[2018-11-04 09:46] LABS: INR 0.97 (0.83-1.09); PROTHROMBIN TIME (PATIENT) 11.4 SEC (9.7-13.0)
[2018-11-04 09:49] LABS: ACTIVATED PTT 39.6 SECONDS (25.2-36.5)
--- NOTE | 2018-11-04 11:47 | EKG ---
Test Reason : Blood Pressure : / mmHG Vent. Rate : 081 BPM Atrial Rate : 081 BPM P-R Int : 174 ms QRS Dur : 078 ms QT Int : 400 ms P-R-T Axes : 038 020 057 degrees QTc Int : 464 ms POOR DATA QUALITY, INTERPRETATION MAY BE ADVERSELY AFFECTED NORMAL SINUS RHYTHM MINIMAL VOLTAGE CRITERIA FOR LVH, MAY BE NORMAL VARIANT BORDERLINE ECG WHEN COMPARED WITH ECG OF 25-AUG-2018 12:11, NON-SPECIFIC CHANGE IN ST SEGMENT IN LATERAL LEADS Confirmed by JANETT COHN MD ([id number]) on 11/04/2018 11:46:50 AM Referred By: Confirmed By:JANETT COHN MD
[2018-11-04] MEDS ORDERED: SODIUM CHLORIDE 250 ML IV PRN (12:06)
--- NOTE | 2018-11-04 13:39 | PROC ---
Central Line Insertion - Procedure Note TIME OUT performed prior to this procedure with verbal confirmation of correct patient identity, correct side, agreement of the procedure, correct patient position, availability of necessary equipment. Telephone consent obtained form Jessica Jennings ([facility]), consent form is complete and accurate . Risk of possible infection and bleeding have been discussed with the patient. Safety precautions based on patient history or medication use has been addressed. Indication: Other (Malfunctioning AVF) Central Line: Dialysis Cath, Dual Lumen Position: Supine Area prepped with Chlorhexidine solution then draped using sterile barrier protection. Anesthesia: Lidocaine 1% Technique used: Seldinger Ultrasound Guided Assistance: No Site: Right Femoral Dark venous non-pulsatile flow noted from hub of needle. The catheter was introduced. Guide wire removed intact. Each port aspirated then flushed with sterile normal saline and TEGU caps placed. Line secured to skin with nylon suture. Biopatch placed around base of catheter. Sterile occlusive dressing applied. No complications. Patient tolerated the procedure well. HD notified.
[2018-11-04 13:40] LABS: ANION GAP 9 MMOL/L (8-16); BLOOD UREA NITROGEN 49 mg/dL (7-18); CALCIUM 9.1 mg/dL (8.5-10.1); CHLORIDE 96 mmol/L (98-107); CO2 24 mmol/L (21-32); CREATININE 7.3 mg/dL (0.55-1.3); GLUCOSE,RANDOM 179 mg/dL (74-106); POTASSIUM 5.1 mmol/L (3.5-5.1); SODIUM 129 mmol/L (136-145)
--- NOTE | 2018-11-04 15:16 | SPA.PREOP ---
- PRE-OP NOTE Dx: Chronic AV Graft stenosis, h/o multiple graft stents Planned Procedure: HeRO Graft Surgeon: Merrill Last Vital Signs Temp Pulse Resp BP Pulse Ox 98.5 F 54 L 18 174/54 H 98 11/04/18 14:40 11/04/18 14:45 11/04/18 14:45 11/04/18 14:45 11/04/18 07:00 Lab Results WBC 9.8 K/mm3 (4.0-10.0) 11/03/18 19:58 RBC 3.62 M/mm3 (3.60-5.2) 11/03/18 19:58 Hgb 10.9 GM/dL (10.7-15.3) 11/03/18 19:58 Hct 32.6 % (32.4-45.2) 11/03/18 19:58 MCV 90.2 fl (80-96) 11/03/18 19:58 MCHC 33.4 g/dl (32.0-36.0) 11/03/18 19:58 RDW 16.4 % (11.6-15.6) H 11/03/18 19:58 Plt Count 641 K/MM3 (134-434) H D 11/03/18 19:58 Sodium 129 mmol/L (136-145) L 11/04/18 12:45 Potassium 5.1 mmol/L (3.5-5.1) 11/04/18 12:45 Chloride 96 mmol/L (98-107) L 11/04/18 12:45 Carbon Dioxide 24 mmol/L (21-32) 11/04/18 12:45 Anion Gap 9 MMOL/L (8-16) 11/04/18 12:45 BUN 49 mg/dL (7-18) H 11/04/18 12:45 Creatinine 7.3 mg/dL (0.55-1.3) H 11/04/18 12:45 Random Glucose 179 mg/dL (74-106) H 11/04/18 12:45 Calcium 9.1 mg/dL (8.5-10.1) 11/04/18 12:45 INR 0.97 (0.83-1.09) 11/04/18 09:00 - ASSESSMENT/PLAN 1. Make NPO after midnight except po meds 2. GI/DVT PPX 3. Medical optimization / clearance 4. Type and Screen 5. Consent to be obtained by surgeon after risks, benefits and alternatives discussed with patient and or Health Care Proxy. Problem List - Problems (1) Clotted renal dialysis AV graft Code(s): T82.868A - THROMBOSIS DUE TO VASCULAR PROSTH DEV/GRFT, INIT (2) Diabetes Code(s): E11.9 - TYPE 2 DIABETES MELLITUS WITHOUT COMPLICATIONS (3) HTN (hypertension) Code(s): I10 - ESSENTIAL (PRIMARY) HYPERTENSION Visit type - Case Type Case Type: ED Admission
--- NOTE | 2018-11-04 16:27 | CONSULT ---
Consult - text type - Consultation Consultation Note: Renal consult for ESRD on HD This is a 82 year old woman with hx of ESRD on HD (MWF), Hypertension, hyperlipidemia who presented with clotted AVF. Pt last had dialysis on Thursday. AVF is not able to be declotted and HeRo graft to be placed tomorrow. Femoral catheter placed for dialysis today. Pt seen in dialysis, tolerating it well. Has no acute complaints. PMhx: as above Allergies: NKDA Family Hx: NC Social Hx: No T/A/D ROS: as per HPI Home Medications Medication Instructions Recorded Amlodipine Besylate [Norvasc -] 10 mg PO DAILY 12/16/13 Pravastatin Sodium [Pravachol -] 40 mg PO HS 12/16/13 Allopurinol [Zyloprim -] 100 mg PO DAILY 08/25/18 Furosemide 40 mg PO DAILY 08/25/18 hydrALAZINE HCL [Apresoline -] 75 mg PO TID 11/03/18 Vital Signs Temperature 98.5 F 11/04/18 14:40 Pulse Rate 61 11/04/18 16:15 Respiratory Rate 18 11/04/18 16:15 Blood Pressure 157/53 L 11/04/18 16:15 O2 Sat by Pulse Oximetry (%) 98 11/04/18 15:00 Intake & Output 11/01/18 11/02/18 11/03/18 11/04/18 23:59 23:59 23:59 23:59 Intake Total 270 Balance 270 Weight 55.565 kg NAD awake and alert neck supple, no JVD RRR, no M/R CTA, no rales or wheeze soft NT/ND no LE edema CBC, BMP 11/03/18 19:58 11/04/18 12:45 Current Medications Acetaminophen (Tylenol -) 650 mg PO Q6H PRN PRN Reason: FEVER Allopurinol (Zyloprim -) 100 mg PO DAILY [facility] Last Admin: 11/04/18 09:37 Dose: 100 mg Amlodipine Besylate (Norvasc -) 10 mg PO DAILY [facility] Atorvastatin Calcium (Lipitor -) 10 mg PO HS [facility] Last Admin: 11/03/18 22:46 Dose: 10 mg Furosemide (Lasix -) 40 mg PO DAILY [facility] Last Admin: 11/04/18 09:37 Dose: 40 mg Hydralazine HCl (Apresoline -) 75 mg PO TID [facility] Last Admin: 11/04/18 05:06 Dose: 75 mg Sodium Chloride (Normal Saline -) 250 mls @ 3,000 mls/hr IV PRN PRN PRN Reason: Hypotension during Dialysis Stop: 11/05/18 12:06 82 year old woman with hx of ESRD on HD (MWF), Hypertension, hyperlipidemia who presented with clotted AVF. #ESRD on HD #Dialysis access dysfunction #Hypertension #Hyperlipidemia #Hyponatremia due to fluid retention in ESRD Tolerating dialysis via temporary catheter well will get HeRo graft placed tomorrow by vascular surgery continue norvasc, Lasix, hydralzine Renal diet, 1.2L fluid restriction continue statin Thank you Will follow Calixto Bailey DO
--- NOTE | 2018-11-04 17:04 | PN ---
Progress Note, Physician - Current Medication List Current Medications: Active Medications Acetaminophen (Tylenol -) 650 mg PO Q6H PRN PRN Reason: FEVER Allopurinol (Zyloprim -) 100 mg PO DAILY [facility] Last Admin: 11/04/18 09:37 Dose: 100 mg Amlodipine Besylate (Norvasc -) 10 mg PO DAILY [facility] Atorvastatin Calcium (Lipitor -) 10 mg PO HS [facility] Last Admin: 11/03/18 22:46 Dose: 10 mg Furosemide (Lasix -) 40 mg PO DAILY [facility] Last Admin: 11/04/18 09:37 Dose: 40 mg Hydralazine HCl (Apresoline -) 75 mg PO TID [facility] Last Admin: 11/04/18 05:06 Dose: 75 mg Sodium Chloride (Normal Saline -) 250 mls @ 3,000 mls/hr IV PRN PRN PRN Reason: Hypotension during Dialysis Stop: 11/05/18 12:06 - Objective Vital Signs: Vital Signs Temperature 98.5 F 11/04/18 14:40 Pulse Rate 63 11/04/18 16:45 Respiratory Rate 18 11/04/18 16:45 Blood Pressure 169/59 L 11/04/18 16:45 O2 Sat by Pulse Oximetry (%) 98 11/04/18 15:00 Constitutional: Yes: No Distress HENT: Yes: Atraumatic Neck: Yes: Supple Cardiovascular: Yes: Regular Rate and Rhythm Respiratory: Yes: CTA Bilaterally Gastrointestinal: Yes: Normal Bowel Sounds Extremities: Yes: WNL Edema: No Peripheral Pulses WNL: Yes Neurological: Yes: Alert, Oriented Labs: CBC, BMP 11/03/18 19:58 11/04/18 12:45 INR, PTT INR 0.97 (0.83-1.09) 11/04/18 09:00 Problem List - Problems (1) Clotted renal dialysis AV graft Assessment/Plan: for OR tomorrow Code(s): T82.868A - THROMBOSIS DUE TO VASCULAR PROSTH DEV/GRFT, INIT (2) ESRD (end stage renal disease) on dialysis Assessment/Plan: on hd Code(s): N18.6 - END STAGE RENAL DISEASE; Z99.2 - DEPENDENCE ON RENAL DIALYSIS (3) Diabetes Assessment/Plan: monitor Code(s): E11.9 - TYPE 2 DIABETES MELLITUS WITHOUT COMPLICATIONS (4) HTN (hypertension) Code(s): I10 - ESSENTIAL (PRIMARY) HYPERTENSION Assessment/Plan c/o heart burn since after break fast, also felt like pressure, said she had no lunch will get ekg troponin...renal patient so might be elevated myalanta
[2018-11-04] MEDS: amLODIPine BESYLATE 10 MG TABLET (FP) PO SCH (18:55)
[2018-11-04] MEDS ORDERED: MAG HYDROX/AL HYDROX/SIMETH 30 ML UNIT-DOSE CUP PO PRN (19:41)
[2018-11-04] MEDS: ATORVASTATIN CA 10 MG TABLET (FP) PO SCH (21:25)
[2018-11-05] MEDS: hydrALAZINE HCL 50 MG TABLET (FP) PO SCH ×3 (06:13→22:07)
[2018-11-05 08:13] LABS: BASO % 0.7 % (0-2.0); EOS % 2.1 % (0-4.5); HEMATOCRIT 29.4 % (32.4-45.2); HEMOGLOBIN 10.2 GM/dL (10.7-15.3); LYMPH % 24.3 % (8-40); MCH 30.8 pg (25.7-33.7); MCHC 34.6 g/dl (32.0-36.0); MEAN CELL VOLUME 89.2 fl (80-96); NEUT % 60.9 % (42.8-82.8); PLATELET COUNT 525 K/MM3 (134-434); RDW 16.3 % (11.6-15.6); WHITE BLOOD COUNT 8.6 K/mm3 (4.0-10.0)
[2018-11-05 08:26] LABS: ANION GAP 9 MMOL/L (8-16); BLOOD UREA NITROGEN 20 mg/dL (7-18); CALCIUM 8.6 mg/dL (8.5-10.1); CHLORIDE 100 mmol/L (98-107); CO2 29 mmol/L (21-32); GLUCOSE,RANDOM 118 mg/dL (74-106); PHOSPHOROUS 3.6 mg/dL (2.5-4.9); POTASSIUM 4.3 mmol/L (3.5-5.1); SODIUM 138 mmol/L (136-145)
[2018-11-05] MEDS: FUROSEMIDE 40 MG TABLET (FP) PO SCH (09:50)
[2018-11-05] MEDS: amLODIPine BESYLATE 10 MG TABLET (FP) PO SCH (09:50)
[2018-11-05] MEDS: ALLOPURINOL 100 MG TABLET (FP) PO SCH (09:50)
--- NOTE | 2018-11-05 12:53 | PN ---
Progress Note, Physician - Current Medication List Current Medications: Active Medications Acetaminophen (Tylenol -) 650 mg PO Q6H PRN PRN Reason: FEVER Al Hydroxide/Mg Hydroxide (Mylanta Oral Suspension -) 30 ml PO Q6H PRN PRN Reason: DYSPEPSIA Last Admin: 11/04/18 22:28 Dose: 30 ml Allopurinol (Zyloprim -) 100 mg PO DAILY [facility] Last Admin: 11/05/18 09:50 Dose: 100 mg Amlodipine Besylate (Norvasc -) 10 mg PO DAILY [facility] Last Admin: 11/05/18 09:50 Dose: 10 mg Atorvastatin Calcium (Lipitor -) 10 mg PO HS [facility] Last Admin: 11/04/18 21:25 Dose: 10 mg Furosemide (Lasix -) 40 mg PO DAILY [facility] Last Admin: 11/05/18 09:50 Dose: 40 mg Hydralazine HCl (Apresoline -) 75 mg PO TID [facility] Last Admin: 11/05/18 06:13 Dose: 75 mg Sodium Chloride (Normal Saline -) 250 mls @ 3,000 mls/hr IV PRN PRN PRN Reason: Hypotension during Dialysis Stop: 11/05/18 12:06 - Objective Vital Signs: Vital Signs Temperature 99 F 11/05/18 10:00 Pulse Rate 66 11/05/18 10:00 Respiratory Rate 20 11/05/18 10:00 Blood Pressure 157/57 L 11/05/18 10:00 O2 Sat by Pulse Oximetry (%) 97 11/05/18 09:00 Constitutional: Yes: No Distress HENT: Yes: Atraumatic Neck: Yes: Supple Cardiovascular: Yes: Regular Rate and Rhythm Respiratory: Yes: CTA Bilaterally Gastrointestinal: Yes: Normal Bowel Sounds Extremities: Yes: WNL Edema: No Peripheral Pulses WNL: Yes Neurological: Yes: Alert, Oriented Labs: CBC, BMP 11/05/18 06:30 11/05/18 06:30 INR, PTT INR 0.97 (0.83-1.09) 11/04/18 09:00 Problem List - Problems (1) Clotted renal dialysis AV graft Assessment/Plan: for OR Code(s): T82.868A - THROMBOSIS DUE TO VASCULAR PROSTH DEV/GRFT, INIT (2) ESRD (end stage renal disease) on dialysis Assessment/Plan: on hd Code(s): N18.6 - END STAGE RENAL DISEASE; Z99.2 - DEPENDENCE ON RENAL DIALYSIS (3) Diabetes Assessment/Plan: monitor Code(s): E11.9 - TYPE 2 DIABETES MELLITUS WITHOUT COMPLICATIONS (4) HTN (hypertension) Assessment/Plan: monitor on meds Code(s): I10 - ESSENTIAL (PRIMARY) HYPERTENSION
[2018-11-05] MEDS ORDERED: SODIUM CHLORIDE 250 ML IV PRN ×3 (13:56→18:47)
--- NOTE | 2018-11-05 13:56 | PN ---
Progress Note (short form) - Note Progress Note: Renal follow up for ESRD on HD Pt seen and examined at the bedside awake and alert no acute complaints s/p diaysis via femoral catheter yesterday NPO For OR today Vital Signs Temperature 99 F 11/05/18 10:00 Pulse Rate 66 11/05/18 10:00 Respiratory Rate 20 11/05/18 10:00 Blood Pressure 157/57 L 11/05/18 10:00 O2 Sat by Pulse Oximetry (%) 97 11/05/18 09:00 Intake & Output 11/02/18 11/03/18 11/04/18 11/05/18 23:59 23:59 23:59 23:59 Intake Total 390 0 Balance 390 0 Weight 55.565 kg NAD awake and alert neck supple, no JVD RRR, no M/R CTA, no rales or wheeze soft NT/ND no LE edema femoral HD catheter in place CBC, BMP 11/05/18 06:30 11/05/18 06:30 Current Medications Acetaminophen (Tylenol -) 650 mg PO Q6H PRN PRN Reason: FEVER Al Hydroxide/Mg Hydroxide (Mylanta Oral Suspension -) 30 ml PO Q6H PRN PRN Reason: DYSPEPSIA Last Admin: 11/04/18 22:28 Dose: 30 ml Allopurinol (Zyloprim -) 100 mg PO DAILY [facility] Last Admin: 11/05/18 09:50 Dose: 100 mg Amlodipine Besylate (Norvasc -) 10 mg PO DAILY [facility] Last Admin: 11/05/18 09:50 Dose: 10 mg Atorvastatin Calcium (Lipitor -) 10 mg PO HS [facility] Last Admin: 11/04/18 21:25 Dose: 10 mg Furosemide (Lasix -) 40 mg PO DAILY [facility] Last Admin: 11/05/18 09:50 Dose: 40 mg Hydralazine HCl (Apresoline -) 75 mg PO TID [facility] Last Admin: 11/05/18 13:34 Dose: Not Given Sodium Chloride (Normal Saline -) 250 mls @ 3,000 mls/hr IV PRN PRN PRN Reason: Hypotension during Dialysis Stop: 11/05/18 12:06 82 year old woman with hx of ESRD on HD (MWF), Hypertension, hyperlipidemia who presented with clotted AVF. 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
[2018-11-05] MEDS ORDERED: MIDAZOLAM HCL 2 MG/2 ML SINGLE DOSE VIAL ONE (15:40)
[2018-11-05] MEDS ORDERED: PROPOFOL 20 ML ONE (15:45)
[2018-11-05] MEDS ORDERED: ceFAZolin SODIUM 1 GM VIAL IVPB ONE (15:54)
[2018-11-05] MEDS ORDERED: DEXAMETHASONE SOD PHOSPHATE 4 MG/1 ML VIAL ONE (16:25)
[2018-11-05] MEDS ORDERED: HEPARIN NA (PORCINE) 5,000 UNITS/ML 1ML VIAL IV ONE (16:25)
[2018-11-05] MEDS ORDERED: LIDOCAINE HCL 1%, 10 MG/ML (20ML VIAL) INF ONE (16:28)
[2018-11-05] MEDS ORDERED: POVIDONE-IODINE OINTMENT 10% - 28.4 GM TUBE ONE (17:22)
[2018-11-05] MEDS ORDERED: SODIUM CHLORIDE 0.9% P/F 10 ML VIAL IJ ONE (17:43)
[2018-11-05] MEDS ORDERED: ePHEDrine SULFATE 50 MG/1 ML AMPULE ONE (17:43)
--- NOTE | 2018-11-05 17:59 | OP ---
Operative Note - Note: Operative Date: 11/05/18 Pre-Operative Diagnosis: ESRD on HD. Central vein occlusion Operation: USG guided cannulation left IJV. Placement central venous HeRO catheter. Placement AV graft left arm Findings: Patent left IJ partially occluded proximally at subclavian juncture from indwelling stent. Implants: HeRO graft and catheter Surgeon: Juan Momin Center Administrator: Ivanna Hussein Anesthesiologist/KNITTING TEACHER: Chicho Curtis Anesthesia: General Estimated Blood Loss (mls): 30
[2018-11-05] MEDS ORDERED: oxyCODONE HCL 5 MG TABLET PO PRN (18:11)
[2018-11-05] MEDS ORDERED: SODIUM CHLORIDE 1,000 ML IV SCH (18:15)
--- NOTE | 2018-11-05 18:18 | SURG ---
Surgery Front Desk Assistant Note Front Desk Assistant: Ivanna Hussein PA-C Date of Service: 11/05/18 Diagnosis: ESRD on HD. Central vein occlusion Procedure: USG guided cannulation left IJV. Placement central venous HeRO catheter. Placement AV graft left arm I was present for the entirety of the operative procedure. For further detail, please refer to operative report. Visit type - Case Type Case Type: ED Admission - Emergency Emergency Visit: Yes ED Registration Date: 11/04/18 Care time: The patient presented to the Emergency Department on the above date and was hospitalized for further evaluation of their emergent condition. - New patient This patient is new to me today: Yes Date on this admission: 11/05/18
[2018-11-05] MEDS ORDERED: MAG HYDROX/AL HYDROX/SIMETH 30 ML UNIT-DOSE CUP PO PRN (18:47)
[2018-11-05] MEDS ORDERED: ACETAMINOPHEN 325 MG TABLET (FP) PO PRN (18:47)
[2018-11-05] MEDS: ATORVASTATIN CA 10 MG TABLET (FP) PO SCH (22:07)
[2018-11-06] MEDS: hydrALAZINE HCL 50 MG TABLET (FP) PO SCH ×3 (05:44→23:15)
[2018-11-06 10:26] LABS: HEMATOCRIT 24.9 % (32.4-45.2); HEMOGLOBIN 8.7 GM/dL (10.7-15.3); MCH 30.9 pg (25.7-33.7); MCHC 34.8 g/dl (32.0-36.0); MEAN CELL VOLUME 88.9 fl (80-96); PLATELET COUNT 455 K/MM3 (134-434); RDW 16.6 % (11.6-15.6); WHITE BLOOD COUNT 9.5 K/mm3 (4.0-10.0)
[2018-11-06 11:00] LABS: ANION GAP 10 MMOL/L (8-16); BLOOD UREA NITROGEN 35 mg/dL (7-18); CALCIUM 8.6 mg/dL (8.5-10.1); CHLORIDE 97 mmol/L (98-107); CO2 27 mmol/L (21-32); CREATININE 6.3 mg/dL (0.55-1.3); GLUCOSE,RANDOM 215 mg/dL (74-106); PHOSPHOROUS 6.2 mg/dL (2.5-4.9); POTASSIUM 4.9 mmol/L (3.5-5.1); SODIUM 134 mmol/L (136-145)
--- NOTE | 2018-11-06 11:10 | PN ---
Progress Note (short form) - Note Progress Note: Anesthesiology 82 y.o. woman POD#1 s/p HeRO Graft insertion under GA. She is undergoing dialysis this morning and had no ON issues per RN. VSS, no anesthesia-related issues. Stable post-operative course. Continue care as per primary team.
--- NOTE | 2018-11-06 12:43 | DS ---
Physical Examination Vital Signs: Vital Signs Temperature 98.4 F 11/06/18 09:40 Pulse Rate 80 11/06/18 11:20 Respiratory Rate 18 11/06/18 11:20 Blood Pressure 140/58 L 11/06/18 11:20 O2 Sat by Pulse Oximetry (%) 99 11/06/18 08:40 Labs: CBC, BMP 11/06/18 09:50 11/06/18 09:50 Discharge Summary Reason For Visit: MALFUNCTION OF ARTERIOVENOUS DIALYSIS FISTULA Current Active Problems Clotted renal dialysis AV graft (Acute) Malfunction of arteriovenous dialysis fistula (Acute) ESRD (end stage renal disease) on dialysis (Chronic) - Instructions Diet, Activity, Other Instructions: Dr. Momin Discharge Instructions Dear SADI SHAH, Post Operative Instructions Physical activity Resume your normal everyday activity as tolerated no heavy lifting or exercise until seen by your surgeon. You may walk unlimited amounts of and climb stairs. You may resume driving the car when you feel safe and comfortable behind the wheel and are no longer taking narcotic medication. Wound care Keep your incisions clean and dry. Your steve will be removed by your surgeon. Diet There are no dietary restrictions. Eat healthy, high-fiber foods. Drink 6 to 8 glasses of liquid each day. This will assist in keeping your bowels are regular. Pain management You may take Tylenol or acetaminophen or Ibuprofen (for example, Motrin, Advil etc.) Any pain prescription medication ordered should be taken as prescribed for moderate to severe pain. Call Dr. Momin for any of the following: Severe pain not relieved by medication Fever of 101 or higher Excessive bleeding or drainage on dressing Inability to urinate If you experience any chest pain or shortness of breath please seek emergency treatment immediately. Call the office at to confirm your post op appointment. - Home Medications Comprehensive Discharge Medication List: Ambulatory Orders Amlodipine Besylate [Norvasc -] 10 mg PO DAILY 12/16/13 Pravastatin Sodium [Pravachol -] 40 mg PO HS 12/16/13 Allopurinol [Zyloprim -] 100 mg PO DAILY 08/25/18 Furosemide 40 mg PO DAILY 08/25/18 hydrALAZINE HCL [Apresoline -] 75 mg PO TID 11/03/18
--- NOTE | 2018-11-06 13:11 | PN ---
Progress Note, Physician History of Present Illness: stable - Current Medication List Current Medications: Active Medications Acetaminophen (Tylenol -) 650 mg PO Q6H PRN PRN Reason: FEVER Al Hydroxide/Mg Hydroxide (Mylanta Oral Suspension -) 30 ml PO Q6H PRN PRN Reason: DYSPEPSIA Allopurinol (Zyloprim -) 100 mg PO DAILY [facility] Amlodipine Besylate (Norvasc -) 10 mg PO DAILY [facility] Aspirin (Ecotrin -) 81 mg PO DAILY [facility] Atorvastatin Calcium (Lipitor -) 10 mg PO HS [facility] Last Admin: 11/05/18 22:07 Dose: 10 mg Clopidogrel Bisulfate (Plavix -) 75 mg PO DAILY [facility] Furosemide (Lasix -) 40 mg PO DAILY [facility] Hydralazine HCl (Apresoline -) 75 mg PO TID [facility] Last Admin: 11/06/18 05:44 Dose: 75 mg Sodium Chloride (Normal Saline -) 250 mls @ 3,000 mls/hr IV PRN PRN PRN Reason: Hypotension during Dialysis Sodium Chloride (Normal Saline -) 250 mls @ 3,000 mls/hr IV PRN PRN PRN Reason: Hypotension during Dialysis Stop: 11/06/18 13:56 Oxycodone HCl (Roxicodone -) 5 mg PO Q4H PRN PRN Reason: PAIN LEVEL 4 - 6 - Objective Vital Signs: Vital Signs Temperature 98.4 F 11/06/18 09:40 Pulse Rate 77 11/06/18 12:50 Respiratory Rate 18 11/06/18 12:50 Blood Pressure 146/57 L 11/06/18 12:50 O2 Sat by Pulse Oximetry (%) 99 11/06/18 08:40 Constitutional: Yes: No Distress HENT: Yes: Atraumatic Neck: Yes: Supple Cardiovascular: Yes: Regular Rate and Rhythm Respiratory: Yes: CTA Bilaterally Gastrointestinal: Yes: Normal Bowel Sounds Extremities: Yes: WNL Edema: No Peripheral Pulses WNL: Yes Neurological: Yes: Alert, Oriented Labs: CBC, BMP 11/06/18 09:50 11/06/18 09:50 INR, PTT INR 0.97 (0.83-1.09) 11/04/18 09:00 Problem List - Problems (1) Clotted renal dialysis AV graft Assessment/Plan: s/p surgery graft cant be used until next week Code(s): T82.868A - THROMBOSIS DUE TO VASCULAR PROSTH DEV/GRFT, INIT (2) ESRD (end stage renal disease) on dialysis Assessment/Plan: on hd Code(s): N18.6 - END STAGE RENAL DISEASE; Z99.2 - DEPENDENCE ON RENAL DIALYSIS (3) Diabetes Assessment/Plan: monitor Code(s): E11.9 - TYPE 2 DIABETES MELLITUS WITHOUT COMPLICATIONS (4) HTN (hypertension) Assessment/Plan: monitor on meds Code(s): I10 - ESSENTIAL (PRIMARY) HYPERTENSION
[2018-11-06 14:09] LABS: HBSAG SCREEN Negative (Negative); HEP A AB, IGM Negative (Negative); HEP B CORE AB, TOT Negative (Negative)
[2018-11-06] MEDS: amLODIPine BESYLATE 10 MG TABLET (FP) PO SCH (14:11)
[2018-11-06] MEDS: ASPIRIN COATED 81 MG TABLET.EC PO SCH (14:11)
[2018-11-06] MEDS: ALLOPURINOL 100 MG TABLET (FP) PO SCH (14:11)
[2018-11-06] MEDS: CLOPIDOGREL BISULFATE 75 MG TABLET (FP) PO SCH (14:12)
[2018-11-06] MEDS: FUROSEMIDE 40 MG TABLET (FP) PO SCH (14:12)
--- NOTE | 2018-11-06 17:04 | PN ---
Progress Note (short form) - Note Progress Note: Renal follow up for ESRD on HD Pt seen and examined during dialysis awake and alert no acute complaints BP stable, UF as tolerated using femoral catheter for HD Vital Signs Temperature 98.8 F 11/06/18 14:31 Pulse Rate 61 11/06/18 14:31 Respiratory Rate 20 11/06/18 14:31 Blood Pressure 156/55 L 11/06/18 14:31 O2 Sat by Pulse Oximetry (%) 99 11/06/18 08:40 Intake & Output 11/03/18 11/04/18 11/05/18 11/06/18 23:59 23:59 23:59 23:59 Intake Total 390 350 0 Output Total 20 Balance 390 330 0 Weight 55.565 kg NAD awake and alert neck supple, no JVD RRR, no M/R CTA, no rales or wheeze soft NT/ND no LE edema femoral HD catheter in place CBC, BMP 11/06/18 09:50 11/06/18 09:50 Current Medications Acetaminophen (Tylenol -) 650 mg PO Q6H PRN PRN Reason: FEVER Al Hydroxide/Mg Hydroxide (Mylanta Oral Suspension -) 30 ml PO Q6H PRN PRN Reason: DYSPEPSIA Allopurinol (Zyloprim -) 100 mg PO DAILY [facility] Last Admin: 11/06/18 14:11 Dose: 100 mg Amlodipine Besylate (Norvasc -) 10 mg PO DAILY [facility] Last Admin: 11/06/18 14:11 Dose: 10 mg Aspirin (Ecotrin -) 81 mg PO DAILY [facility] Last Admin: 11/06/18 14:11 Dose: 81 mg Atorvastatin Calcium (Lipitor -) 10 mg PO HS [facility] Last Admin: 11/05/18 22:07 Dose: 10 mg Clopidogrel Bisulfate (Plavix -) 75 mg PO DAILY [facility] Last Admin: 11/06/18 14:12 Dose: 75 mg Furosemide (Lasix -) 40 mg PO DAILY [facility] Last Admin: 11/06/18 14:12 Dose: 40 mg Hydralazine HCl (Apresoline -) 75 mg PO TID [facility] Last Admin: 11/06/18 14:14 Dose: 75 mg Sodium Chloride (Normal Saline -) 250 mls @ 3,000 mls/hr IV PRN PRN PRN Reason: Hypotension during Dialysis Sodium Chloride (Normal Saline -) 250 mls @ 3,000 mls/hr IV PRN PRN PRN Reason: Hypotension during Dialysis Stop: 11/06/18 13:56 Oxycodone HCl (Roxicodone -) 5 mg PO Q4H PRN PRN Reason: PAIN LEVEL 4 - 6 82 year old woman with hx of ESRD on HD (MWF), Hypertension, hyperlipidemia who presented with clotted AVF. #ESRD on HD #Dialysis access dysfunction #Hypertension #Hyperlipidemia #Hyponatremia due to fluid retention in ESRD tolerating dialysis was femoral catheter HeRo graft in place vascular follow up regarding graft care and removal of femoral catheter discharge once cleared by vascular surgery femoral catheter needs to be removed prior to discharge Calixto Bailey DO
[2018-11-06] MEDS: ATORVASTATIN CA 10 MG TABLET (FP) PO SCH (23:14)
[2018-11-07] MEDS: hydrALAZINE HCL 50 MG TABLET (FP) PO SCH ×4 (01:04→22:41)
[2018-11-07] MEDS: CLOPIDOGREL BISULFATE 75 MG TABLET (FP) PO SCH (10:06)
[2018-11-07] MEDS: ASPIRIN COATED 81 MG TABLET.EC PO SCH (10:06)
[2018-11-07] MEDS: amLODIPine BESYLATE 10 MG TABLET (FP) PO SCH (10:07)
[2018-11-07] MEDS: ALLOPURINOL 100 MG TABLET (FP) PO SCH (10:07)
[2018-11-07] MEDS: FUROSEMIDE 40 MG TABLET (FP) PO SCH (10:07)
--- NOTE | 2018-11-07 11:19 | PN ---
Progress Note (short form) - Note Progress Note: Renal follow up for ESRD on HD Pt seen and examined at the bedside no acute complaints s/p dialysis yesterday no sob, cp, abd pain, N/V/D Vital Signs Temperature 98.5 F 11/07/18 10:00 Pulse Rate 68 11/07/18 10:00 Respiratory Rate 18 11/07/18 10:00 Blood Pressure 157/53 L 11/07/18 10:00 O2 Sat by Pulse Oximetry (%) 99 11/07/18 09:00 Intake & Output 11/04/18 11/05/18 11/06/18 11/07/18 23:59 23:59 23:59 23:59 Intake Total 390 350 200 100 Output Total 20 Balance 390 330 200 100 NAD awake and alert neck supple, no JVD RRR, no M/R CTA, no rales or wheeze soft NT/ND no LE edema femoral HD catheter in place CBC, BMP 11/06/18 09:50 11/06/18 09:50 Current Medications Acetaminophen (Tylenol -) 650 mg PO Q6H PRN PRN Reason: FEVER Al Hydroxide/Mg Hydroxide (Mylanta Oral Suspension -) 30 ml PO Q6H PRN PRN Reason: DYSPEPSIA Allopurinol (Zyloprim -) 100 mg PO DAILY [facility] Last Admin: 11/07/18 10:07 Dose: 100 mg Amlodipine Besylate (Norvasc -) 10 mg PO DAILY [facility] Last Admin: 11/07/18 10:07 Dose: 10 mg Aspirin (Ecotrin -) 81 mg PO DAILY [facility] Last Admin: 11/07/18 10:06 Dose: 81 mg Atorvastatin Calcium (Lipitor -) 10 mg PO HS [facility] Last Admin: 11/06/18 23:14 Dose: 10 mg Clopidogrel Bisulfate (Plavix -) 75 mg PO DAILY [facility] Last Admin: 11/07/18 10:06 Dose: 75 mg Furosemide (Lasix -) 40 mg PO DAILY [facility] Last Admin: 11/07/18 10:07 Dose: 40 mg Hydralazine HCl (Apresoline -) 75 mg PO TID [facility] Last Admin: 11/07/18 06:31 Dose: 75 mg Sodium Chloride (Normal Saline -) 250 mls @ 3,000 mls/hr IV PRN PRN PRN Reason: Hypotension during Dialysis Sodium Chloride (Normal Saline -) 250 mls @ 3,000 mls/hr IV PRN PRN PRN Reason: Hypotension during Dialysis Stop: 11/06/18 13:56 Oxycodone HCl (Roxicodone -) 5 mg PO Q4H PRN PRN Reason: PAIN LEVEL 4 - 6 82 year old woman with hx of ESRD on HD (MWF), Hypertension, hyperlipidemia who presented with clotted AVF. #ESRD on HD #Dialysis access dysfunction #Hypertension #Hyperlipidemia #Hyponatremia due to fluid retention in ESRD s/p HD yesterday, no acute need for [employer] today case discussed with vascular surgery. Cannot use graft until the end of the week. Will plan on dialysis tomorrow with femoral catheter and then d/c catheter. ideally can be discharged following HD tomorrow with plan to have labs checked Mid-week and then HD later in the week like Thursday. Calixto Bailey DO
--- NOTE | 2018-11-07 14:10 | PN ---
Progress Note, Physician History of Present Illness: stable - Current Medication List Current Medications: Active Medications Acetaminophen (Tylenol -) 650 mg PO Q6H PRN PRN Reason: FEVER Al Hydroxide/Mg Hydroxide (Mylanta Oral Suspension -) 30 ml PO Q6H PRN PRN Reason: DYSPEPSIA Allopurinol (Zyloprim -) 100 mg PO DAILY [facility] Last Admin: 11/07/18 10:07 Dose: 100 mg Amlodipine Besylate (Norvasc -) 10 mg PO DAILY [facility] Last Admin: 11/07/18 10:07 Dose: 10 mg Aspirin (Ecotrin -) 81 mg PO DAILY [facility] Last Admin: 11/07/18 10:06 Dose: 81 mg Atorvastatin Calcium (Lipitor -) 10 mg PO HS [facility] Last Admin: 11/06/18 23:14 Dose: 10 mg Clopidogrel Bisulfate (Plavix -) 75 mg PO DAILY [facility] Last Admin: 11/07/18 10:06 Dose: 75 mg Epoetin Ru (Epogen -) 10,000 unit IVPUSH ONCE ONE Stop: 11/08/18 06:01 Furosemide (Lasix -) 40 mg PO DAILY [facility] Last Admin: 11/07/18 10:07 Dose: 40 mg Hydralazine HCl (Apresoline -) 75 mg PO TID [facility] Last Admin: 11/07/18 06:31 Dose: 75 mg Sodium Chloride (Normal Saline -) 250 mls @ 3,000 mls/hr IV PRN PRN PRN Reason: Hypotension during Dialysis Stop: 11/08/18 11:19 Oxycodone HCl (Roxicodone -) 5 mg PO Q4H PRN PRN Reason: PAIN LEVEL 4 - 6 - Objective Vital Signs: Vital Signs Temperature 99.2 F 11/07/18 13:51 Pulse Rate 70 11/07/18 13:51 Respiratory Rate 20 11/07/18 13:51 Blood Pressure 142/54 L 11/07/18 13:51 O2 Sat by Pulse Oximetry (%) 99 11/07/18 09:00 Constitutional: Yes: No Distress HENT: Yes: Atraumatic Neck: Yes: Supple Cardiovascular: Yes: Regular Rate and Rhythm Respiratory: Yes: CTA Bilaterally Gastrointestinal: Yes: Normal Bowel Sounds Extremities: Yes: WNL Edema: No Peripheral Pulses WNL: Yes Neurological: Yes: Alert, Oriented Labs: CBC, BMP 11/06/18 09:50 11/06/18 09:50 INR, PTT INR 0.97 (0.83-1.09) 11/04/18 09:00 Problem List - Problems (1) Clotted renal dialysis AV graft Assessment/Plan: s/p surgery graft cant be used until next week hd in am dc after hd Code(s): T82.868A - THROMBOSIS DUE TO VASCULAR PROSTH DEV/GRFT, INIT (2) ESRD (end stage renal disease) on dialysis Assessment/Plan: on hd Code(s): N18.6 - END STAGE RENAL DISEASE; Z99.2 - DEPENDENCE ON RENAL DIALYSIS (3) Diabetes Assessment/Plan: monitor Code(s): E11.9 - TYPE 2 DIABETES MELLITUS WITHOUT COMPLICATIONS (4) HTN (hypertension) Assessment/Plan: monitor on meds Code(s): I10 - ESSENTIAL (PRIMARY) HYPERTENSION
[2018-11-07] MEDS: ATORVASTATIN CA 10 MG TABLET (FP) PO SCH (22:41)
[2018-11-08] MEDS: hydrALAZINE HCL 50 MG TABLET (FP) PO SCH ×3 (05:37→22:05)
--- NOTE | 2018-11-08 07:49 | PN ---
Progress Note (short form) - Note Progress Note: POD #3 HeRO graft placement. Patient seen and examined at bedside. resting comfortably but rousable. she does not wake for my exam but nods yes when I ask her if she feels okay this morning. Vital Signs Temp 98.9 F 11/08/18 06:11 Pulse 64 11/08/18 06:11 Resp 18 11/08/18 06:11 BP 159/51 L 11/08/18 06:11 Pulse Ox 98 11/07/18 21:00 Intake & Output 11/07/18 11/07/18 11/08/18 11:59 23:59 11:59 Intake Total 100 400 0 Balance 100 400 0 Intake: Oral 100 400 0 Other: Voiding Method Incontinent Incontinent Diaper # Unmeasured Voids Void 1 CBC, BMP 11/06/18 09:50 11/06/18 09:50 PE: Resting comfortably, rousable, does not wake for exam unlabored resp on RA Left arm and neck dressings C/D/I with surrounding tissue intact with no erythema or edema. no evidence of d/c. Thrill palpated over graft in upper arm. left arm and hand warm and well perfused with +2 radial and unlar pulse. Problem List - Problems (1) ESRD (end stage renal disease) on dialysis Assessment/Plan: POD#3 HeRO graft placement doing well. Cannot use graft yet. 1) Dialysis via femoral catheter per renal recommendation 2) d/c planning when medically stable, possibly after dialysis today 3) F/u with [facility] outpatient. 4) Can use graft as discussed with renal. Evaluation and plan discussed with Dr Momin Code(s): N18.6 - END STAGE RENAL DISEASE; Z99.2 - DEPENDENCE ON RENAL DIALYSIS
[2018-11-08] MEDS: ASPIRIN COATED 81 MG TABLET.EC PO SCH (10:54)
[2018-11-08] MEDS: FUROSEMIDE 40 MG TABLET (FP) PO SCH (10:54)
[2018-11-08] MEDS: CLOPIDOGREL BISULFATE 75 MG TABLET (FP) PO SCH (10:54)
[2018-11-08] MEDS: ALLOPURINOL 100 MG TABLET (FP) PO SCH (10:54)
--- NOTE | 2018-11-08 13:31 | PN ---
Progress Note (short form) - Note Progress Note: Renal follow up for ESRD on HD Pt seen and examined at the bedside awake and alert no acute complaints denies any sob, cp, abd pain, N/V/D, fever Vital Signs Temperature 99.3 F 11/08/18 10:00 Pulse Rate 64 11/08/18 10:00 Respiratory Rate 17 11/08/18 10:00 Blood Pressure 148/56 L 11/08/18 10:00 O2 Sat by Pulse Oximetry (%) 98 11/08/18 09:00 Intake & Output 11/05/18 11/06/18 11/07/18 11/08/18 23:59 23:59 23:59 23:59 Intake Total 350 200 500 0 Output Total 20 Balance 330 200 500 0 NAD awake and alert neck supple, no JVD RRR, no M/R CTA, no rales or wheeze soft NT/ND no LE edema femoral HD catheter in place CBC, BMP 11/06/18 09:50 11/06/18 09:50 Current Medications Acetaminophen (Tylenol -) 650 mg PO Q6H PRN PRN Reason: FEVER Last Admin: 11/07/18 18:34 Dose: 650 mg Al Hydroxide/Mg Hydroxide (Mylanta Oral Suspension -) 30 ml PO Q6H PRN PRN Reason: DYSPEPSIA Allopurinol (Zyloprim -) 100 mg PO DAILY [facility] Last Admin: 11/08/18 10:54 Dose: 100 mg Amlodipine Besylate (Norvasc -) 10 mg PO DAILY [facility] Last Admin: 11/07/18 10:07 Dose: 10 mg Aspirin (Ecotrin -) 81 mg PO DAILY [facility] Last Admin: 11/08/18 10:54 Dose: 81 mg Atorvastatin Calcium (Lipitor -) 10 mg PO HS [facility] Last Admin: 11/07/18 22:41 Dose: 10 mg Clopidogrel Bisulfate (Plavix -) 75 mg PO DAILY [facility] Last Admin: 11/08/18 10:54 Dose: 75 mg Epoetin Ru (Epogen -) 10,000 unit IVPUSH ONCE ONE Stop: 11/08/18 06:01 Furosemide (Lasix -) 40 mg PO DAILY [facility] Last Admin: 11/08/18 10:54 Dose: 40 mg Hydralazine HCl (Apresoline -) 75 mg PO TID [facility] Last Admin: 11/08/18 05:37 Dose: 75 mg Sodium Chloride (Normal Saline -) 250 mls @ 3,000 mls/hr IV PRN PRN PRN Reason: Hypotension during Dialysis Stop: 11/08/18 11:19 Oxycodone HCl (Roxicodone -) 5 mg PO Q4H PRN PRN Reason: PAIN LEVEL 4 - 6 82 year old woman with hx of ESRD on HD (MWF), Hypertension, hyperlipidemia who presented with clotted AVF. #ESRD on HD #Dialysis access dysfunction #Hypertension #Hyperlipidemia #Hyponatremia due to fluid retention in ESRD for HD today via femoral catheter shiley catheter can be removed after HD will plan for D/c Home and then next HD on Thursday will check BMP on Thursday to ensure no hyperkalemia. case discussed with family at the bedside Calixto Bailey DO
[2018-11-08] MEDS ORDERED: SODIUM CHLORIDE 250 ML IV PRN (15:24)
[2018-11-08] MEDS ORDERED: EPOETIN ALFA 10,000 UNIT/1 ML VIAL IVPUSH ONE (16:00)
[2018-11-08 16:25] LABS: HEMATOCRIT 26.3 % (32.4-45.2); HEMOGLOBIN 8.6 GM/dL (10.7-15.3); MCH 29.9 pg (25.7-33.7); MCHC 32.7 g/dl (32.0-36.0); MEAN CELL VOLUME 91.2 fl (80-96); MEAN PLT VOLUME 7.1 fl (7.5-11.1); PLATELET COUNT 415 K/MM3 (134-434); RBC 2.89 M/mm3 (3.60-5.2); RDW 16.1 % (11.6-15.6); WHITE BLOOD COUNT 8.6 K/mm3 (4.0-10.0)
[2018-11-08 16:49] LABS: ANION GAP 9 MMOL/L (8-16); BLOOD UREA NITROGEN 37 mg/dL (7-18); CALCIUM 8.2 mg/dL (8.5-10.1); CHLORIDE 102 mmol/L (98-107); CO2 29 mmol/L (21-32); CREATININE 6.9 mg/dL (0.55-1.3); GLUCOSE,RANDOM 214 mg/dL (74-106); PHOSPHOROUS 4.5 mg/dL (2.5-4.9); POTASSIUM 4.3 mmol/L (3.5-5.1); SODIUM 140 mmol/L (136-145)
--- NOTE | 2018-11-08 17:16 | DS ---
Physical Examination Vital Signs: Vital Signs Temperature 99.0 F 11/08/18 13:38 Pulse Rate 69 11/08/18 13:38 Respiratory Rate 18 11/08/18 13:38 Blood Pressure 147/51 L 11/08/18 13:38 O2 Sat by Pulse Oximetry (%) 98 11/08/18 09:00 Constitutional: Yes: No Distress HENT: Yes: Atraumatic Neck: Yes: Supple Cardiovascular: Yes: Regular Rate and Rhythm Respiratory: Yes: CTA Bilaterally Gastrointestinal: Yes: Normal Bowel Sounds Extremities: Yes: WNL Edema: No Peripheral Pulses WNL: Yes Neurological: Yes: Alert, Oriented Labs: CBC, BMP 11/08/18 15:00 11/08/18 15:00 Discharge Summary Reason For Visit: MALFUNCTION OF ARTERIOVENOUS DIALYSIS FISTULA Current Active Problems Clotted renal dialysis AV graft (Acute) Malfunction of arteriovenous dialysis fistula (Acute) ESRD (end stage renal disease) on dialysis (Chronic) - Instructions Diet, Activity, Other Instructions: Dr. Momin Discharge Instructions Dear SADI SHAH, Post Operative Instructions Physical activity Resume your normal everyday activity as tolerated no heavy lifting or exercise until seen by your surgeon. You may walk unlimited amounts of and climb stairs. You may resume driving the car when you feel safe and comfortable behind the wheel and are no longer taking narcotic medication. Wound care Keep your incisions clean and dry. Your steve will be removed by your surgeon. Diet There are no dietary restrictions. Eat healthy, high-fiber foods. Drink 6 to 8 glasses of liquid each day. This will assist in keeping your bowels are regular. Pain management You may take Tylenol or acetaminophen or Ibuprofen (for example, Motrin, Advil etc.) Any pain prescription medication ordered should be taken as prescribed for moderate to severe pain. Call Dr. Momin for any of the following: Severe pain not relieved by medication Fever of 101 or higher Excessive bleeding or drainage on dressing Inability to urinate If you experience any chest pain or shortness of breath please seek emergency treatment immediately. Call the office at to confirm your post op appointment. Referrals: Juan Momin MD [Staff Physician] - 2 Weeks () - Home Medications Comprehensive Discharge Medication List: Ambulatory Orders Amlodipine Besylate [Norvasc -] 10 mg PO DAILY 12/16/13 Pravastatin Sodium [Pravachol -] 40 mg PO HS 12/16/13 Allopurinol [Zyloprim -] 100 mg PO DAILY 08/25/18 Furosemide 40 mg PO DAILY 08/25/18 hydrALAZINE HCL [Apresoline -] 75 mg PO TID 11/03/18 dc after hd
[2018-11-08] MEDS: amLODIPine BESYLATE 10 MG TABLET (FP) PO SCH (18:54)
--- NOTE | 2018-11-08 19:29 | PN ---
Progress Note, Physician History of Present Illness: stable - Current Medication List Current Medications: Active Medications Acetaminophen (Tylenol -) 650 mg PO Q6H PRN PRN Reason: FEVER Last Admin: 11/07/18 18:34 Dose: 650 mg Al Hydroxide/Mg Hydroxide (Mylanta Oral Suspension -) 30 ml PO Q6H PRN PRN Reason: DYSPEPSIA Allopurinol (Zyloprim -) 100 mg PO DAILY [facility] Last Admin: 11/08/18 10:54 Dose: 100 mg Amlodipine Besylate (Norvasc -) 10 mg PO DAILY [facility] Last Admin: 11/08/18 18:54 Dose: Not Given Aspirin (Ecotrin -) 81 mg PO DAILY [facility] Last Admin: 11/08/18 10:54 Dose: 81 mg Atorvastatin Calcium (Lipitor -) 10 mg PO HS [facility] Last Admin: 11/07/18 22:41 Dose: 10 mg Clopidogrel Bisulfate (Plavix -) 75 mg PO DAILY [facility] Last Admin: 11/08/18 10:54 Dose: 75 mg Furosemide (Lasix -) 40 mg PO DAILY [facility] Last Admin: 11/08/18 10:54 Dose: 40 mg Hydralazine HCl (Apresoline -) 75 mg PO TID [facility] Last Admin: 11/08/18 18:55 Dose: Not Given - Objective Vital Signs: Vital Signs Temperature 99.3 F 11/08/18 19:23 Pulse Rate 64 11/08/18 19:23 Respiratory Rate 16 11/08/18 19:23 Blood Pressure 150/49 L 11/08/18 19:23 O2 Sat by Pulse Oximetry (%) 98 11/08/18 09:00 Constitutional: Yes: No Distress HENT: Yes: Atraumatic Neck: Yes: Supple Cardiovascular: Yes: Regular Rate and Rhythm Respiratory: Yes: CTA Bilaterally Gastrointestinal: Yes: Normal Bowel Sounds Extremities: Yes: WNL Edema: No Peripheral Pulses WNL: Yes Neurological: Yes: Alert, Oriented Labs: CBC, BMP 11/08/18 15:00 11/08/18 15:00 INR, PTT INR 0.97 (0.83-1.09) 11/04/18 09:00 Problem List - Problems (1) Clotted renal dialysis AV graft Assessment/Plan: s/p surgery graft cant be used until next week had Hd too late to be dc dc in am Code(s): T82.868A - THROMBOSIS DUE TO VASCULAR PROSTH DEV/GRFT, INIT (2) ESRD (end stage renal disease) on dialysis Assessment/Plan: on hd Code(s): N18.6 - END STAGE RENAL DISEASE; Z99.2 - DEPENDENCE ON RENAL DIALYSIS (3) Diabetes Assessment/Plan: monitor Code(s): E11.9 - TYPE 2 DIABETES MELLITUS WITHOUT COMPLICATIONS (4) HTN (hypertension) Code(s): I10 - ESSENTIAL (PRIMARY) HYPERTENSION
[2018-11-08] MEDS: ATORVASTATIN CA 10 MG TABLET (FP) PO SCH (22:06)
[2018-11-09] MEDS: hydrALAZINE HCL 50 MG TABLET (FP) PO SCH ×3 (06:47→22:15)
[2018-11-09] MEDS: ASPIRIN COATED 81 MG TABLET.EC PO SCH (09:06)
[2018-11-09] MEDS: FUROSEMIDE 40 MG TABLET (FP) PO SCH (09:06)
[2018-11-09] MEDS: ALLOPURINOL 100 MG TABLET (FP) PO SCH (09:06)
[2018-11-09] MEDS: amLODIPine BESYLATE 10 MG TABLET (FP) PO SCH (09:06)
[2018-11-09] MEDS: CLOPIDOGREL BISULFATE 75 MG TABLET (FP) PO SCH (09:06)
--- NOTE | 2018-11-09 11:30 | PN ---
Progress Note (short form) - Note Progress Note: Renal follow up for ESRD on HD Pt seen and examined at the bedside no acute complaints tolerated dialysis well yesterday femoral catheter removed this morning but pt had prolonged bleeding from puncture site. Vascular surgery PA called. Bleeding stopped after 15 minutes of pressure. Vital Signs Temperature 97.9 F 11/08/18 22:00 Pulse Rate 67 11/08/18 22:00 Respiratory Rate 18 11/08/18 22:00 Blood Pressure 149/56 L 11/08/18 22:00 O2 Sat by Pulse Oximetry (%) 96 11/08/18 21:00 Intake & Output 11/06/18 11/07/18 11/08/18 11/09/18 23:59 23:59 23:59 23:59 Intake Total 200 500 150 120 Balance 200 500 150 120 NAD awake and alert neck supple, no JVD RRR, no M/R CTA, no rales or wheeze soft NT/ND no LE edema femoral HD catheter in place CBC, BMP 11/08/18 15:00 11/08/18 15:00 Current Medications Acetaminophen (Tylenol -) 650 mg PO Q6H PRN PRN Reason: FEVER Last Admin: 11/07/18 18:34 Dose: 650 mg Al Hydroxide/Mg Hydroxide (Mylanta Oral Suspension -) 30 ml PO Q6H PRN PRN Reason: DYSPEPSIA Allopurinol (Zyloprim -) 100 mg PO DAILY [facility] Last Admin: 11/09/18 09:06 Dose: 100 mg Amlodipine Besylate (Norvasc -) 10 mg PO DAILY [facility] Last Admin: 11/09/18 09:06 Dose: 10 mg Aspirin (Ecotrin -) 81 mg PO DAILY [facility] Last Admin: 11/09/18 09:06 Dose: 81 mg Atorvastatin Calcium (Lipitor -) 10 mg PO HS [facility] Last Admin: 11/08/18 22:06 Dose: 10 mg Clopidogrel Bisulfate (Plavix -) 75 mg PO DAILY [facility] Last Admin: 11/09/18 09:06 Dose: 75 mg Furosemide (Lasix -) 40 mg PO DAILY [facility] Last Admin: 11/09/18 09:06 Dose: 40 mg Hydralazine HCl (Apresoline -) 75 mg PO TID [facility] Last Admin: 11/09/18 06:47 Dose: Not Given 82 year old woman with hx of ESRD on HD (MWF), Hypertension, hyperlipidemia who presented with clotted AVF. #ESRD on HD #Dialysis access dysfunction #Hypertension #Hyperlipidemia #Hyponatremia due to fluid retention in ESRD tolerated dialysis w/o issue yesterday evening given prolonged bleeding will get US of the groin as per vascular type and screen and CBC to be checked no indication for OTOLARYNGOLOGY REP today if no pathology found on US,hgb stable and cleared by vascular can be discharged witn next planned dialysis for Thursday. will have BMP checked tomorrow at home to monitor electrolytes. Calixto Bailey DO
--- NOTE | 2018-11-09 12:22 | PN ---
Progress Note (short form) - Note Progress Note: Called by RN to see pt for bleeding from R groin s/p removal of shiley Upon entering room, Toy Consultant Dr Bailey holding direct pressure to R groin with gauze. Per Dr Bailey, pt has been receiving HD through shiley (shiley placed 4/5) without issue, last session yesterday, no issues noted, no bleeding. Shiley removed by Dr Bailey, pressure held x 10 minutes with noted bleeding through gauze. Upon entering room, gauze removed for evaluation and pulsatile bleeding noted. Direct pressure held for 10 minutes, bleeding noted to stop. +bruit palpated. Pressure dressing applied. T&S sent. U/S and Dr Momin notified. Accompanied pt to U/S which revealed 1x.43cm pseudoaneurysm off proximal SFA. Plan d/w attending Dr Momin by SRUTHI Ring. Will place pressure dressing and sandbag over R groin. Plan to re-image in AM. Plan d/w pts RN Plan d/w patient Please call immediately if any bleeding noted
--- NOTE | 2018-11-09 12:34 | OP ---
DATE OF OPERATION: 11/05/2018 SURGEON: Juan Momin M.D. GAS AND OIL CHECKER: SRUTHI Hussein PROCEDURE: Ultrasound-guided cannulation of the left internal jugular vein. Placement of central venous HeRO catheter and placement of arteriovenous graft of the left arm. 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 ANESTHESIA: General. ANESTHESIOLOGIST: Chicho Curtis, Ref-DO OPERATIVE FINDINGS: The left internal jugular vein was patent distally, but partially occluded proximally at the juncture with the subclavian vein where the indwelling stent was present. The innominate vein was patent. The left brachial artery was normal caliber with good flow. OPERATIVE PROCEDURE: Following routine patient identification with site and side verification, general anesthesia was induced. The left arm, chest and neck were prepped with ChloraPrep. Timeout was performed. Using real time duplex imaging, the left internal jugular vein was identified in the neck. It was accessed with the micropuncture needle using duplex guidance with the lateral approach. A wire was advanced proximally into the internal jugular vein and the needle was exchanged for a 5-[place] catheter. Venography was performed through the catheter with the above-noted findings. An angle tip wire was then advanced proximally through the area of stenosis and into the superior vena cava. A 6-[place] sheath was placed over the wire and advanced to the area of stenosis. An angled tip wire and catheter were then advanced to the right atrium into the inferior vena cava and then the wire was exchanged through the catheter for an Amplatz wire. An incision was then made in the medial aspect of the left upper arm over the palpable brachial pulse. The subcutaneous tissues were divided with cautery. The brachial artery was mobilized and secured proximally and distally with vessel loops. The side branches were ligated with hook ties and divided. The vessel was covered with moist gauze. An incision was then made on the anterior aspect of the shoulder in the deltopectoral groove and deepened into the fatty tissue with cautery. The HeRO catheter was then passed from the shoulder incision to the neck incision with the aid of the Dejah clamp. The tract around the wire was then successfully dilated until a 20-[place] sheath was placed over the wire into the left subclavian vein. The HeRO catheter with its dilator was then exchanged over the wire and the tip advanced into the right atrium. The wire and the dilator were removed and the catheter was allowed to back bleed and was filled with heparin solution and occluded with the non-crushing clamp. An incision was then made in the distal aspect of the upper arm over the old graft. This was deepened down to the graft, which was freed for 2 cm proximally and distally and the portion of the graft was excised. The distal end was ligated with a 0 silk, even though there was no active bleeding. A tunneler was then passed from this incision to the shoulder incision and the HeRO graft was passed through the tunneler with care not to twist it leaving the connector in the proximal location. A curved tunneler was then used to pass the graft from the distal arm to the brachial artery incision. The HeRO catheter was then cut at the appropriate level and connected to the HeRO graft without difficulty. Again the catheter and graft were allowed to back bleed and were filled with heparin solution and occluded with the vascular clamp. The brachial artery was then occluded with the vessel loops and opened on exposed surface with a 6 mm arteriotomy. The end of the graft was beveled and anastomosed to the side of the artery with a running suture of 6-0 Prolene. Prior to completion of the suture line, the artery was allowed to back bleed and flush and the graft was again flushed with the heparin. The suture line was completed and all clamps were removed. There was good flow through the anastomosis with a palpable pulse in the graft. Bleeding from the suture line was controlled with Surgicel. When hemostasis was adequate, all wounds were irrigated and closed with interrupted sutures of 3-0 Vicryl in the subcutaneous tissues and skin steve. Sterile dressings were applied and the patient was taken to the recovery room in stable condition. Nell [id number]
--- NOTE | 2018-11-09 16:52 | PN ---
Progress Note, Physician History of Present Illness: previous noted - Current Medication List Current Medications: Active Medications Acetaminophen (Tylenol -) 650 mg PO Q6H PRN PRN Reason: FEVER Last Admin: 11/07/18 18:34 Dose: 650 mg Al Hydroxide/Mg Hydroxide (Mylanta Oral Suspension -) 30 ml PO Q6H PRN PRN Reason: DYSPEPSIA Allopurinol (Zyloprim -) 100 mg PO DAILY [facility] Last Admin: 11/09/18 09:06 Dose: 100 mg Amlodipine Besylate (Norvasc -) 10 mg PO DAILY [facility] Last Admin: 11/09/18 09:06 Dose: 10 mg Aspirin (Ecotrin -) 81 mg PO DAILY [facility] Last Admin: 11/09/18 09:06 Dose: 81 mg Atorvastatin Calcium (Lipitor -) 10 mg PO HS [facility] Last Admin: 11/08/18 22:06 Dose: 10 mg Clopidogrel Bisulfate (Plavix -) 75 mg PO DAILY [facility] Last Admin: 11/09/18 09:06 Dose: 75 mg Furosemide (Lasix -) 40 mg PO DAILY [facility] Last Admin: 11/09/18 09:06 Dose: 40 mg Hydralazine HCl (Apresoline -) 75 mg PO TID [facility] Last Admin: 11/09/18 13:55 Dose: Not Given - Objective Vital Signs: Vital Signs Temperature 99.4 F 11/09/18 15:10 Pulse Rate 71 11/09/18 15:10 Respiratory Rate 20 11/09/18 15:10 Blood Pressure 132/41 L 11/09/18 15:10 O2 Sat by Pulse Oximetry (%) 98 11/09/18 09:00 Constitutional: Yes: No Distress HENT: Yes: Atraumatic Neck: Yes: Supple Cardiovascular: Yes: Regular Rate and Rhythm Gastrointestinal: Yes: Normal Bowel Sounds Extremities: Yes: WNL Neurological: Yes: Alert, Oriented Labs: CBC, BMP 11/08/18 15:00 11/08/18 15:00 INR, PTT INR 0.97 (0.83-1.09) 11/04/18 09:00 Problem List - Problems (1) Clotted renal dialysis AV graft Assessment/Plan: s/p surgery graft cant be used until next week had Hd dc in am if cleared by renal Code(s): T82.868A - THROMBOSIS DUE TO VASCULAR PROSTH DEV/GRFT, INIT (2) ESRD (end stage renal disease) on dialysis Assessment/Plan: on hd Code(s): N18.6 - END STAGE RENAL DISEASE; Z99.2 - DEPENDENCE ON RENAL DIALYSIS (3) Diabetes Assessment/Plan: monitor Code(s): E11.9 - TYPE 2 DIABETES MELLITUS WITHOUT COMPLICATIONS (4) HTN (hypertension) Code(s): I10 - ESSENTIAL (PRIMARY) HYPERTENSION
[2018-11-09 18:03] LABS: MCH 30.2 pg (25.7-33.7); MCHC 33.3 g/dl (32.0-36.0); MEAN CELL VOLUME 90.7 fl (80-96); MEAN PLT VOLUME 7.2 fl (7.5-11.1); PLATELET COUNT 414 K/MM3 (134-434); RBC 2.98 M/mm3 (3.60-5.2); RDW 16.1 % (11.6-15.6); WHITE BLOOD COUNT 12.1 K/mm3 (4.0-10.0)
[2018-11-09] MEDS: ATORVASTATIN CA 10 MG TABLET (FP) PO SCH (22:15)
[2018-11-10] MEDS: hydrALAZINE HCL 50 MG TABLET (FP) PO SCH ×2 (06:25→13:38)
[2018-11-10] MEDS: CLOPIDOGREL BISULFATE 75 MG TABLET (FP) PO SCH (10:22)
[2018-11-10] MEDS: amLODIPine BESYLATE 10 MG TABLET (FP) PO SCH (10:22)
[2018-11-10] MEDS: ALLOPURINOL 100 MG TABLET (FP) PO SCH (10:22)
[2018-11-10] MEDS: ASPIRIN COATED 81 MG TABLET.EC PO SCH (10:22)
[2018-11-10] MEDS: FUROSEMIDE 40 MG TABLET (FP) PO SCH (10:22)
[2018-11-10 11:50] LABS: ANION GAP 9 MMOL/L (8-16); BLOOD UREA NITROGEN 44 mg/dL (7-18); CALCIUM 8.7 mg/dL (8.5-10.1); CHLORIDE 97 mmol/L (98-107); CO2 27 mmol/L (21-32); CREATININE 7.2 mg/dL (0.55-1.3); GLUCOSE,RANDOM 236 mg/dL (74-106); POTASSIUM 5.1 mmol/L (3.5-5.1); SODIUM 133 mmol/L (136-145)
[2018-11-10] MEDS ORDERED: SODIUM POLYSTYRENE SULFONATE 15 GM/60 ML BOTTLE PO ONE (12:00)
--- NOTE | 2018-11-10 12:58 | PN ---
Progress Note (short form) - Note Progress Note: Renal follow up for ESRD on HD Pt seen and examined at the bedside no acute complaints Vital Signs Temperature 99.5 F 11/10/18 06:37 Pulse Rate 62 11/10/18 06:37 Respiratory Rate 16 11/10/18 06:37 Blood Pressure 147/48 L 11/10/18 06:37 O2 Sat by Pulse Oximetry (%) 98 11/09/18 21:00 NAD awake and alert neck supple, no JVD RRR, no M/R CTA, no rales or wheeze soft NT/ND no LE edema femoral HD catheter in place CBC, BMP 11/09/18 17:30 11/10/18 11:00 Current Medications Acetaminophen (Tylenol -) 650 mg PO Q6H PRN PRN Reason: FEVER Last Admin: 11/07/18 18:34 Dose: 650 mg Al Hydroxide/Mg Hydroxide (Mylanta Oral Suspension -) 30 ml PO Q6H PRN PRN Reason: DYSPEPSIA Allopurinol (Zyloprim -) 100 mg PO DAILY [facility] Last Admin: 11/10/18 10:22 Dose: 100 mg Amlodipine Besylate (Norvasc -) 10 mg PO DAILY [facility] Last Admin: 11/10/18 10:22 Dose: 10 mg Aspirin (Ecotrin -) 81 mg PO DAILY [facility] Last Admin: 11/10/18 10:22 Dose: 81 mg Atorvastatin Calcium (Lipitor -) 10 mg PO HS [facility] Last Admin: 11/09/18 22:15 Dose: 10 mg Clopidogrel Bisulfate (Plavix -) 75 mg PO DAILY [facility] Last Admin: 11/10/18 10:22 Dose: 75 mg Furosemide (Lasix -) 40 mg PO DAILY [facility] Last Admin: 11/10/18 10:22 Dose: 40 mg Hydralazine HCl (Apresoline -) 75 mg PO TID [facility] Last Admin: 11/10/18 06:25 Dose: 75 mg 82 year old woman with hx of ESRD on HD (MWF), Hypertension, hyperlipidemia who presented with clotted AVF. #ESRD on HD #Dialysis access dysfunction #Hypertension #Hyperlipidemia #Hyponatremia due to fluid retention in ESRD stable for discharge today no indication for SCHOOL CLERK today give kayexalate 30g x 1 today to prevent hyperkalemia as next planned HD is thursday cleared from vascular for discharge Calixto Bailey DO
[2018-11-10 14:11] VITALS: BP 137/44; PULSE 67; TEMP 97
--- NOTE | 2018-11-10 14:48 | PN ---
Progress Note (short form) - Note Progress Note: Accompanied pt to U/S this AM. Pseudoaneurysm remains open, measuring 1.2x.26cm. Plan d/w attending Dr Momin. Discussed with pt and daughter option of bedside compression with u/s probe. Pts daughter declining at this time stating they are ready to go home and would prefer to f/u regarding issue. Discussed with pt and daughter to check groin daily and contact Dr Momin's office immediately if any groin swelling/pain/bleeding is noted. Pt and daughter verbalized understanding. Will schedule f/u in office within 1 week. RN present during discussion
--- NOTE | 2018-11-10 16:43 | DS ---
Physical Examination Vital Signs: Vital Signs Temperature 97 F L 11/10/18 14:10 Pulse Rate 67 11/10/18 14:10 Respiratory Rate 20 11/10/18 14:10 Blood Pressure 137/44 L 11/10/18 14:10 O2 Sat by Pulse Oximetry (%) 98 11/10/18 09:00 Constitutional: Yes: No Distress HENT: Yes: Atraumatic Neck: Yes: Supple Cardiovascular: Yes: Regular Rate and Rhythm Respiratory: Yes: CTA Bilaterally Gastrointestinal: Yes: Normal Bowel Sounds Extremities: Yes: WNL Neurological: Yes: Alert, Oriented Labs: CBC, BMP 11/09/18 17:30 11/10/18 11:00 Discharge Summary Reason For Visit: MALFUNCTION OF ARTERIOVENOUS DIALYSIS FISTULA - Instructions Diet, Activity, Other Instructions: Dr. Momin Discharge Instructions Dear SADI SHAH, Post Operative Instructions Physical activity Resume your normal everyday activity as tolerated no heavy lifting or exercise until seen by your surgeon. You may walk unlimited amounts of and climb stairs. You may resume driving the car when you feel safe and comfortable behind the wheel and are no longer taking narcotic medication. Wound care Keep your incisions clean and dry. Your steve will be removed by your surgeon. Diet There are no dietary restrictions. Eat healthy, high-fiber foods. Drink 6 to 8 glasses of liquid each day. This will assist in keeping your bowels are regular. Pain management You may take Tylenol or acetaminophen or Ibuprofen (for example, Motrin, Advil etc.) Any pain prescription medication ordered should be taken as prescribed for moderate to severe pain. Call Dr. Momin for any of the following: Severe pain not relieved by medication Fever of 101 or higher Excessive bleeding or drainage on dressing Inability to urinate If you experience any chest pain or shortness of breath please seek emergency treatment immediately. Call the office at to confirm your post op appointment. Referrals: Juan Momin MD [Staff Physician] - 2 Weeks () Disposition: HOME - Home Medications Comprehensive Discharge Medication List: Ambulatory Orders Amlodipine Besylate [Norvasc -] 10 mg PO DAILY 12/16/13 Pravastatin Sodium [Pravachol -] 40 mg PO HS 12/16/13 Allopurinol [Zyloprim -] 100 mg PO DAILY 08/25/18 Furosemide 40 mg PO DAILY 08/25/18 hydrALAZINE HCL [Apresoline -] 75 mg PO TID 11/03/18 ok home
== END 2018-11-10 14:59 | disposition home or self-care (01) | DRG 264 ==
LOC: JER 19:25 → JERBED 21:22 → INTOOBSV 21:22 → J7W 11-04 04:51 → OBSVTOIN 11-04 15:08 → J7W 11-04 19:03
PROVIDERS: ADMIT Internal Medicine; ATTEND Internal Medicine
PROC: 06HM33Z Insertion of Infusion Device into Right Femoral Vein, Percutaneous Approach (ICD-10-PCS; principal; 2018-11-04)
PROC: 5A1D70Z Performance of Urinary Filtration, Intermittent, Less than 6 Hours Per Day (ICD-10-PCS; 2018-11-04)
PROC: 03180JV Bypass Left Brachial Artery to Superior Vena Cava with Synthetic Substitute, Open Approach (ICD-10-PCS; 2018-11-05)
PROC: 5A1D70Z Performance of Urinary Filtration, Intermittent, Less than 6 Hours Per Day (ICD-10-PCS; 2018-11-06)
PROC: 5A1D70Z Performance of Urinary Filtration, Intermittent, Less than 6 Hours Per Day (ICD-10-PCS; 2018-11-08)
DX: T82.868A Thrombosis due to vascular prosthetic devices, implants and grafts, initial encounter (principal); N18.6 End stage renal disease; I12.0 Hypertensive chronic kidney disease with stage 5 chronic kidney disease or end stage renal disease; E87.1 Hypo-osmolality and hyponatremia; Y83.8 Other surgical procedures as the cause of abnormal reaction of the patient, or of later complication, without mention of misadventure at the time of the procedure; E78.00 Pure hypercholesterolemia, unspecified; E11.22 Type 2 diabetes mellitus with diabetic chronic kidney disease; Z99.2 Dependence on renal dialysis; Z91.15 Patient's noncompliance with renal dialysis; E78.5 Hyperlipidemia, unspecified
CPT/HCPCS: 36415; 71045-TC-FY; 76000-TC-FY; 80048; 80053; 82550; 82962; 84100; 84484; 85025; 85027; 85610; 85730; 86704; 86706; 86708; 86803; 86850; 86900; 86901; 87340; 93005; 93010; 93926-TC; 94760; 97116-GP; 97161-GP; 99284-25; G0378; J0885; J1644

== ENCOUNTER 2019-01-07 21:24 | Emergency (ER) | payer OTHER, MEDICARE | END 2019-01-08 01:37 | disposition home or self-care (01) | LOC: JER 01-08 01:37 ==

== ENCOUNTER 2020-04-21 19:49 | Inpatient (IN) | payer OTHER, MEDICARE ==
--- OUTSIDE RECORDS SUMMARY | 2020-04-21 20:42 | XMS ---
:1935 Author Organization [facility] Name Relationship Address Phone STEVE SHAH DAUGHTER [address] [place] [address] TAMIKA SHAH SON [address] [place] [address] RE Unavailable Unavailable Unavailable STEVE ERICKSON DAUGHTER [address] [place] [address] CORY ERICKSON DAUGHTER [address] [place] [address] Re-disclosure Warning The records that you are about to access may contain information from federally- assisted alcohol or drug abuse programs. If such information is present, then the following federally mandated warning applies: This information has been disclosed to you from records protected by federal confidentiality rules (42 CFR part 2). The federal rules prohibit you from making any further disclosure of this information unless further disclosure is expressly permitted by the written consent of the person to whom it pertains or as otherwise permitted by 42 CFR part 2. A general authorization for the release of medical or other information is NOT sufficient for this purpose. The Federal rules restrict any use of the information to criminally investigate or prosecute any alcohol or drug abuse patient.The records that you are about to access may contain highly sensitive health information, the redisclosure of which is protected by Article 27-F of the [facility] Public Health law. If you continue you may haveaccess to information: Regarding HIV / AIDS; Provided by facilities licensed or operated by the [facility] Office of Mental Health; or Provided by the [facility] Office for People With Developmental Disabilities. If such information is present, then the following [facility] mandated warning applies: This information has been disclosed to you from confidential records which are protected by state law. State law prohibits you from making any further disclosure of this information without the specific written consent of the person to whom it pertains, or as otherwise permitted by law. Any unauthorized further disclosure in violation of state law may result in a fine or chcf sentence or both. A general authorization for the release of medical or other information is NOT sufficient authorization for further disclosure. Insurance Providers Payer name Policy type Policy ID Covered Covered constitution party's Policy P carmelo / Coverage constitution party ID relationship to Garnica Inf ormation type garnica MEDICARE [id number] SP [id number] [facility] [id number] SP [id number] CARE OPTIONS [facility] [id number] SP [id number] [employer] HOTE MEDICARE [id number] SP [id number] D [facility] [id number] SP [id number] [employer] MEDICARE [id number] SP [id number] D Results ID Date Data Source [id number] 01/24/2020 02:16:00 PM EDT [place] Name Value Range Interpretation Description Data Sup porting Code Source(s) Document(s ) [place] Coronavirus 2 RNA Presence Respiratory Specimen NAINA Probe Detection This lab was ordered by [facility] and rep orted by [facility]. Procedure
--- NOTE | 2020-04-21 21:12 | PDOC ---
History of Present Illness - General Chief Complaint: Weakness Stated Complaint: WEAKNESS Time Seen by Provider: 04/21/20 21:11 History Source: Patient, Family Exam Limitations: No Limitations - History of Present Illness Initial Comments: 04/21/20 21:11 Adalberto Jennings is an 84F with PMH DM, ESRD on MWF HD, HTN, HLD, presenting with weakness. Patient presents with daughter at bedside to provide more history. Per daughter, patient is very quiet but at baseline mental status. Patient got HD yesterday without incident. Also vomited yesterday after breakfast but tolerating PO today. No fevers, chills, chest pain, SOB, abd pain, urinary sx. Still makes urine. Denies dizziness or MCARTHUR. Today feeling weak, was walking down stairs with family and began to have less energy, helped to ground without head injury. Used to have DM but at some point bill adjuster said to stop taking meds, does not normally take any meds or check BGM. PSH Past History - Medical History Allergies/Adverse Reactions: Allergies Allergy/AdvReac Type Severity Reaction Status Date / Time No Known Allergies Allergy Verified 04/21/20 20:19 Home Medications: Ambulatory Orders Amlodipine Besylate [Norvasc -] 10 mg PO DAILY 12/16/13 Pravastatin Sodium [Pravachol -] 40 mg PO HS 12/16/13 Allopurinol [Zyloprim -] 100 mg PO DAILY 08/25/18 Furosemide 40 mg PO DAILY 08/25/18 hydrALAZINE HCL [Apresoline -] 75 mg PO TID 11/03/18 Anemia: Yes Asthma: No Cancer: No Cardiac Disorders: No CVA: Yes COPD: No CHF: No Dementia: No Diabetes: Yes (no medication) Dialysis: Yes (m,w,f) GI Disorders: No HTN: Yes Hypercholesterolemia: Yes Liver Disease: No Seizures: No Thyroid Disease: Yes - Surgical History Abdominal Surgery: Yes (Hysterectomy) Appendectomy: Yes Cardiac Surgery: No Cholecystectomy: No Lung Surgery: No Neurologic Surgery: No Orthopedic Surgery: No - Reproductive History Is Patient Now?: No - Immunization History Immunization Up to Date: No - Psycho-Social/Smoking History Smoking History: Never smoked Have you smoked in the past 12 months: No Information on smoking cessation initiated: No - Substance Abuse Hx (Audit-C & DAST Scrn) How often the patient has a drink containing alcohol: Never Score: In Men: 4 or > Positive; In Women: 3 or > Positive: 0 Screen Result (Pos requires Nsg. Audit-10AR): Negative In the last yr the pt used illegal drug/Rx for NonMed reason: No Score: Yes response is considered Positive: 0 Screen Result (Positive result requires Nsg. DAST-10): Negative Review of Systems - Review of Systems Able to Perform ROS?: Yes Constitutional: Yes: Weakness HEENTM: No: Symptoms Reported Respiratory: No: Symptoms reported Cardiac (ROS): No: Symptoms Reported ABD/GI: No: Symptoms Reported : No: Symptoms Reported Musculoskeletal: No: Symptoms Reported Integumentary: No: Symptoms Reported Neurological: No: Symptoms reported Endocrine: No: Symptoms Reported Hematologic/Lymphatic: No: Symptoms Reported All Other Systems: Reviewed and Negative *Physical Exam - Vital Signs Last Vital Signs Temp Pulse Resp BP Pulse Ox 99.0 F 77 15 152/61 96 04/21/20 20:19 04/21/20 20:35 04/21/20 20:35 04/21/20 20:35 04/21/20 20:35 - Physical Exam General Appearance: Yes: Nourished, Appropriately Dressed, Other (resting in bed, soft-spoken). No: Apparent Distress HEENT: positive: EOMI, FEI, Normal Voice, Symmetrical, Pharynx Normal, Hearing Grossly Normal. negative: Scleral Icterus (R), Scleral Icterus (L), Pharyngeal Erythema, Tonsillar Exudate, Tonsillar Erythema Neck: positive: Normal Thyroid, Supple. negative: Tender, Rigid, Stridor, Lymphadenopathy (R), Lymphadenopathy (L) Respiratory/Chest: positive: Lungs Clear, Normal Breath Sounds. negative: Chest Tender, Respiratory Distress, Accessory Muscle Use, Crackles, Rales, Rhonchi, Stridor Cardiovascular: positive: Regular Rhythm, Regular Rate. negative: Murmur Gastrointestinal/Abdominal: positive: Normal Bowel Sounds, Soft, Protuberent. negative: Tender, Guarding, Rebound Musculoskeletal: positive: Normal Inspection. negative: CVA Tenderness, Decreased Range of Motion, Vertebral Tenderness Extremity: positive: Normal Capillary Refill, Normal Inspection, Normal Range of Motion, Pelvis Stable. negative: Tender, Coldness, Cyanosis, Pedal Edema, Swelling, Calf Tenderness Integumentary: positive: Normal Color, Dry, Warm Neurologic: positive: Fully Oriented, Alert, Normal Mood/Affect, Normal Response. negative: Motor Strength 5/5, Responsive (3/5 all groups) ED Treatment Course - LABORATORY CBC & Chemistry Diagram: 04/22/20 00:40 04/22/20 00:40 - ADDITIONAL ORDERS Additional order review: Laboratory Results 04/21/20 20:12 POC Glucometer 423 04/21/20 20:12 POC Glucometer 423 Medical Decision Making - Medical Decision Making 04/21/20 21:11 Patient presents with daughter for weakness today with unprovoked vomiting yesterday. Denies any cough/SOB/abd pain/urinary sx/fever. No AMS per daughter. VSS, exam normal. No prior cardiac history or admissions for infection. Concerned for infectious etiology such as PNA vs. UTI as well as ACS. BGM 423, evaluating for hyperglycemia vs. DKA. CBC/CMP/ECG/CXR/UA/UC/d-dimer/beta-hydroxy/lactic/BC ordered. CXR large heart without obvious infiltrate. ECG SR with PVCs, flipped P waves, HR 96, QTc 530 but unreliable as most QTc narrow, peaked T waves, possible evolving [place]. 04/21/20 22:02 Labs notable for: - WBC 21.6, consistent with infection - Na 131 - K 5.2 - Cr 6.8, consistent with ESRD - AST 282/ ALT 77 unclear etiology of transaminitis in EtOH pattern, no PMH of this - ketones 3.8, slightly elevated - pH 7.417, no acidosis - BNP >08025 consistent with ESRD 04/21/20 22:44 Straight cath urine appears to be pus, consistent with UTI. Zosyn and IVF ordered. 04/21/20 23:18 Contacted lab regarding missing troponin and glucose as they were not posted for 2 hours after received. Lab reports troponin 198 and glucose 430 at this time. Lactic acid 3.9. Anion gap of 20 consistent with DKA, although no acidosis on VBG. No IVF given, wary of fluid overload given ESRD. Concern for NSTEMI, giving ASA, getting repeat ECG, and consulting cardiology. Giving insulin for hyperglycemia. 04/21/20 23:32 Repeat ECG grossly unchanged from prior, no peaked T waves, no clear evolving [place]. Dr. Villa consulted, patient has no chest pain, VSS, does not believe patient has active STEMI, NSTEMI 2/2 sepsis, can be kept at [facility] for telemetry monitoring. Will admit to telemetry as planned. 04/21/20 23:41 Patient now going into bursts of AFIB and has NSTEMI, starting on heparin bolus+drip by weight. Discussed case with admitting team Dr. Ragland who recommends ICU consult given multitude of severe medical issues. Contacted [facility] for patient evaluation for NSTEMI + DKA + UTI/SEPSIS. 04/22/20 00:00 Patient does not have PT/aPTT listed despite labs sent at the start of patient's time in ED. Contacted lab who will look into this, heparin drip starting. 04/22/20 00:44 Placed 20G PIV in R AC vein with US guidance for access. Complete new set of labs ordered to trend trop, coags, lactic acid, WBC, anion gap. ICU at bedside to evaluate, accepts to ICU give multiple comorbidities. Inpatient team at bedside, notified of change. Discharge - Discharge Information Problems reviewed: Yes Clinical Impression/Diagnosis: Weakness, Transaminitis, Elevated troponin, Hyperglycemia Condition: Stable - Admission Yes - Follow up/Referral - Patient Discharge Instructions - Post Discharge Activity
--- NOTE | 2020-04-21 21:23 | PDOC ---
Attending Attestation - Resident Resident Name: Kenn Spence - ED Attending Attestation I have performed the following: I have examined & evaluated the patient, The case was reviewed & discussed with the resident, I agree w/resident's findings & plan - HPI HPI: 04/21/20 22:15 Pt comes with worsening weakness. Unclear source. Pt has HTN, high cholesterol, dialysis M/W/F; last dialysis was yesterday. Pt has a graft in her left arm Pt has no fever and no dysuria. She makes a little urine and she has incontinenve and wears a diaper. Daughter states that the last time she was admitted she was over hydrated and her legs were like balloons - Physicial Exam PE: 04/21/20 22:17 Pt is thin; no pitting edema of legs. Afebrile Alert awake heart RRR lungs CTA B; however O2sat is 94% Abd soft NT ND no suprapubic pain no flank pain Moving all extremties - Medical Decision Making 04/21/20 22:19 Pt has a massive new cardiomegaly Pt has effusions/infiltrates in the pneumonia. She will be treated with zosyn, as she has QT prolongation on EKG, so we will refrain from giving zpak, or other QT prolonging drugs 04/21/20 22:43 Official CXR read states that unlikely she has a pneumonia; zosyn given for her UTI/emily pus that came out of her straight cath. 04/21/20 22:52 Pt will be admitted for med surg eval Discharge - Discharge Information Problems reviewed: Yes Clinical Impression/Diagnosis: Weakness, Transaminitis Condition: Stable - Follow up/Referral Referrals: ON STAFF,NOT [Primary Care Provider] - - Patient Discharge Instructions - Post Discharge Activity
[2020-04-21 21:49] LABS: BASO % 0.1 % (0-2.0); HEMATOCRIT 38.1 % (32.4-45.2); HEMOGLOBIN 12.6 GM/dL (10.7-15.3); LYMPH % 1.9 % (8-40); MCH 30.6 pg (25.7-33.7); MEAN CELL VOLUME 92.7 fl (80-96); MEAN PLT VOLUME 8.7 fl (7.5-11.1); MONO % 6.5 % (3.8-10.2); NEUT % 91.5 % (42.8-82.8); PLATELET COUNT 397 K/MM3 (134-434); RBC 4.11 M/mm3 (3.60-5.2); RDW 17.2 % (11.6-15.6); WHITE BLOOD COUNT 21.8 K/mm3 (4.0-10.0)
[2020-04-21] MEDS ORDERED: SODIUM CHLORIDE 1,000 ML IV SCH (22:00)
[2020-04-21] MEDS ORDERED: PIPERACILLIN/TAZOB 3.375 GM 3.375 GM in DEXTROSE 5%-WATER - 50 ML IVPB ONE (22:10)
[2020-04-21 22:18] LABS: ALK PHOS 85 U/L (45-117); ANION GAP 20 MMOL/L (8-16); BILIRUBIN,TOTAL 0.7 mg/dL (0.2-1); CALCIUM 10.1 mg/dL (8.5-10.1); CHLORIDE 90 mmol/L (98-107); CO2 21 mmol/L (21-32); CREATININE 6.8 mg/dL (0.55-1.3); POTASSIUM 5.2 mmol/L (3.5-5.1); SGOT/AST 282 U/L (15-37); SGPT/ALT 77 U/L (13-61); SODIUM 131 mmol/L (136-145); TOT PROT 8.5 g/dl (6.4-8.2)
[2020-04-21] MEDS ORDERED: PIPERACILLIN/TAZOB 3.375 GM 3.375 GM/50 ML BAG IVPB ONE (22:46)
[2020-04-21 22:48] LABS: VENOUS BASE EXCESS -4.2 mmol/L (-2-2); VENOUS O2 SATURATION 78.2 % (70-80); VENOUS PCO2 30.3 mmHg (38-52); VENOUS PH 7.417 (7.310-7.410)
[2020-04-21 22:55] LABS: ALBUMIN 3.6 g/dl (3.4-5.0); BLOOD UREA NITROGEN 61.4 mg/dL (7-18); N-TERMINAL BNP > 35000.0 pg/ml (5-450)
[2020-04-21 23:07] LABS: PLATELET ESTIMATE NORMAL
[2020-04-21 23:12] LABS: GLUCOSE,RANDOM 436 mg/dL (74-106)
[2020-04-21] MEDS ORDERED: ASPIRIN 81 MG CHEWABLE TABLETS PO ONE (23:14)
--- NOTE | 2020-04-21 23:30 | PN ---
Teaching Attending Note Name of Resident: Adolph Ragland ATTENDING PHYSICIAN STATEMENT I saw and evaluated the patient. I reviewed the resident's note and discussed the case with the resident. I agree with the resident's findings and plan as documented. SUBJECTIVE: Patient is an 84 year old woman with a PMH of NIDDM (now diet controlled), C-se ction, ESRD (on hemodialysis M-W-), HTN and HLD, who presents to the ER with weakness. Per daughter at bedside, patient is very quiet but at baseline mental status. Patient was dialyzed yesterday without incident. Vomited yesterday after breakfast but tolerating PO today. No reported fevers, chills, chest pain, SOB, abdominal pain, dysuria, frequency or hematuria. Patient is incontinent of urine and wears diapers. [place] very weak today and almost fell down walking down the stairs with family but was helped to ground without head injury. Denies dizziness, headache, diarrhea, melena or hematochezia. Denies alcohol, tobacco or illicit drug use. No sick contacts or recent travels. Family history of HTN in mother. OBJECTIVE: Alert Vital Signs Period Temp Pulse Resp BP Sys/Weber Pulse Ox Last 24 Hr 99.0 F 77-77 15-20 152-152/61-61 96-96 HEENT: No Jaundice, eye redness or discharge, PERRLA, EOMI. Normocephalic, atraumatic. External ears are normal and hearing is grossly intact. No nasal discharge. Neck: Supple, nontender. No palpable adenopathy or thyromegaly. No JVD Chest: Left chest permacath. Good effort. Clear to auscultation and percussion. Heart: Regular. No S3, rub or murmur Abdomen: Not distended, soft, nontender and no HSM. No rebound or guarding. Normal bowel sounds. Ext: Peripheral pulses intact. No leg edema. Skin: Warm and dry. No petechiae, rash or ecchymosis. Neuro: Alert. Oriented x3. CN 2-12 grossly intact. Sensation grossly intact in all four extremities and DTR are symmetric. Psych: Appropriate mood and affect. Good insight. Home Medications Medication Instructions Recorded Amlodipine Besylate [Norvasc -] 10 mg PO DAILY 12/16/13 Pravastatin Sodium [Pravachol -] 40 mg PO HS 12/16/13 Allopurinol [Zyloprim -] 100 mg PO DAILY 08/25/18 Furosemide 40 mg PO DAILY 08/25/18 hydrALAZINE HCL [Apresoline -] 75 mg PO TID 11/03/18 Abnormal Lab Results 04/21/20 04/21/20 04/21/20 21:28 21:30 22:17 WBC 21.8 H RDW 17.2 H Absolute Neuts (auto) 19.9 H Neutrophils % 91.5 H D Neutrophils % (Manual) 93.0 H Lymphocytes % 1.9 L D Lymphocytes % (Manual) 3.0 L D Monocytes % (Manual) 3 L VBG pH POC VBG pCO2 VBG HCO3 VBG Base Excess Sodium 131 L Potassium 5.2 H Chloride 90 L Anion Gap 20 H BUN 61.4 H Creatinine 6.8 H Random Glucose 436 H* Lactic Acid AST 282 H ALT 77 H Creatine Kinase 1610 H CK-MB (CK-2) 63.7 H Troponin I 198.00 H* B-Natriuretic Peptide > 69159.0 H > 31126.0 H Total Protein 8.5 H Beta-Hydroxybutyrate 3.8 H 04/21/20 04/21/20 22:17 22:17 WBC RDW Absolute Neuts (auto) Neutrophils % Neutrophils % (Manual) Lymphocytes % Lymphocytes % (Manual) Monocytes % (Manual) VBG pH 7.417 H POC VBG pCO2 30.3 L VBG HCO3 19.1 L VBG Base Excess -4.2 L Sodium Potassium Chloride Anion Gap BUN Creatinine Random Glucose Lactic Acid 3.9 H* AST ALT Creatine Kinase CK-MB (CK-2) Troponin I B-Natriuretic Peptide Total Protein Beta-Hydroxybutyrate ASSESSMENT AND PLAN: 1. UTI/NSTEMI - CXR shows cardiomegaly with left side permacath, left subclavian/axillary artery vascular mesh stent, ?trachea deviation to the right, but no evidence of acute lung disease. EKG shows NSR at 96/minute and QTc 530 with no significant acute ischemic ST-T wave changes. Initial troponin is 198. Will avoid drugs that may prolong QTc. Urine toxicology is pending/negative. ER consulted Cardiology and patient is on IV Heparin drip fro NSTEMI. Also got Aspirin 324 mg and is on IV Zosyn for UTI. Will add IV Vancomycin pending blood culture result incase the hemodialysis catheter is the source of infection. Consult ID. Viral testing for COVID-19 ordered and patient placed on airborne, droplet and contact isolation. Started on supplemental oxygen via nasal cannula/non- rebreather mask. Will admit to telemetry, trend troponin, repeat lactic acid, hydrate gently, repeat EKG, get ECHO, HbA1c, fasting lipids and treat with Statin, Plavix and Metoprolol. Will do speech and swallow evaluation, neurochecks and implement fall precautions. Consult Cardiology. Hyponatremia likely partly due to hyperglycemia. Will limit free water intake and correct hyperglycemia. Mild hyperkalemia should improve with insulin therapy. Will continue comprehensive care for all of patients comorbid conditions. 2. DM Got 6 units SQ of regular insuln in the ER. Will repeat BMP and decide whether to give IV insulin. Will implement sliding scale insulin regimen. Provide comprehensive diabetes care with patient teaching and counseling about the importance of adherence to prescribed diabetes regimen, euglycemia, eye care and foot care. Conslt Endocrine - may need to restart diabetes medication before discharge. 3. ESRD - Consult Nephrology for ESRD care, and ideally should get hemodialysis to correct metabolic acidosis associated with DM and sepsis, since liberal IV fluid therapy may cause pulmonary edema. Avoid nephrotoxic agents such as NSAIDS, aminoglycosides, contrast dyes and certain Alternative medicine products. 4. Hypertension Will restart suitable outpatient antihypertensive drugs when clinically appropriate. Subsequently, will revise regimen to ensure [id number] excellent BP control. Patient counseled on the injurious effects of uncontrolled hypertension. Nonpharmacologic measures to control hypertension like weight loss, salt restriction and exercise stressed. Importance of adherence to treatment regimen and attainment of normotension emphasized. 5. DVT prophylaxis - Heparin 5000u sq tid. 6. Advance directives - Full code
[2020-04-21] MEDS ORDERED: INSULIN REGULAR HUMAN 100 UNITS/ML *VIAL SQ ONE (23:35)
[2020-04-21] MEDS ORDERED: ASPIRIN 81 MG CHEWABLE TABLETS ONE (23:40)
[2020-04-21] MEDS ORDERED: HEPARIN INFUSION - 25,000 UNITS/500 ML INFUS.BAG IVPB SCH (23:45)
[2020-04-21] MEDS ORDERED: HEPARIN NA (PORCINE) 5,000 UNITS/ML 1ML VIAL IVPUSH ONE (23:45)
--- OUTSIDE RECORDS SUMMARY | 2020-04-21 23:54 | XMS ---
:[address] [facility] Support Name Relationship Address Phone RE, RETIRED Unavailable Unavailable Unavailable STEVE SHAH DAUGHTER [address] [place] [address] TAMIKA SHAH SON [address] [place] [address] RE Unavailable Unavailable Unavailable STEVE ERICKSON DAUGHTER [address] [facility] [place] [address] CORY ERICKSON DAUGHTER [address] [facility] [place] [address] Re-disclosure Warning The records that you are [...] is protected by Article 27-F of the [facility] Public Health law. If you continue you may haveaccess to information: Regarding HIV / AIDS; Provided by facilities licensed or operated by the [facility] Office of Mental Health; or Provided by the [facility] Office for People With Developmental Disabilities. If such information is present, then the following [facility] mandated warning applies: This information [...] law may result in a fine or longterm sentence or both. A general authorization for the release of medical or other information is NOT sufficient authorization for further disclosure. Insurance Providers Payer name Policy type Policy ID Covered Covered democrat's Policy P carmelo / Coverage democrat ID relationship to [employer] Inf ormation type garnica MEDICARE [id number] SP [id number] [facility] [id number] SP [id number] CARE OPTIONS [facility] [id number] SP [id number] [employer] MEDICARE [id number] SP [id number] D [facility] [id number] SP [id number] [employer] MEDICARE [id number] SP [id number] D Results ID Date Data Source [id number] 01/24/2020 02:16:00 PM EDT [place] Name Value Range Interpretation Description Data Sup porting Code Source(s) Document(s ) [place] Coronavirus 2 RNA Presence Respiratory Specimen NAINA Probe Detection This lab was ordered by [place] and rep orted by [facility]. Procedure
[2020-04-22] LABS: EPI CELLS >36 /uL (0-25.1); HYALINE CASTS 53 /uL (0-3.1); URINE APPEARANCE TURBID; URINE BACTERIA >9,000 /uL (0-1359); URINE BILIRUBIN NEGATIVE (NEGATIVE); URINE COLOR YELLOW; URINE GLUCOSE (UA) NEGATIVE (NEGATIVE); URINE KETONE NEGATIVE (NEGATIVE); URINE LEUK ESTERASE NEGATIVE (NEGATIVE); URINE NITRITE NEGATIVE (NEGATIVE); URINE PROTEIN 3+ (NEGATIVE); URINE RBC 7 /uL (0-23.9)
[2020-04-22] MEDS ORDERED: HEPARIN NA (PORCINE) 5,000 UNITS/ML 1ML VIAL ONE (00:08)
[2020-04-22] MEDS ORDERED: HEPARIN INFUSION - 25,000 UNITS/500 ML INFUS.BAG IVPB ONE (00:09)
[2020-04-22 00:20] LABS: INR 1.28 (0.83-1.09); PROTHROMBIN TIME (PATIENT) 15.1 SEC (9.7-13.0)
[2020-04-22 00:23] LABS: ACTIVATED PTT 36.6 SECONDS (25.2-36.5)
[2020-04-22] MEDS ORDERED: SODIUM CHLORIDE 0.9% 500 ML INFUS.BAG IV ONE (00:37)
[2020-04-22 01:04] LABS: BASO % 0.3 % (0-2.0); HEMOGLOBIN 12.1 GM/dL (10.7-15.3); LYMPH % 2.5 % (8-40); MCH 30.5 pg (25.7-33.7); MCHC 32.8 g/dl (32.0-36.0); MEAN PLT VOLUME 8.4 fl (7.5-11.1); MONO % 5.9 % (3.8-10.2); NEUT % 91.3 % (42.8-82.8); PLATELET COUNT 370 K/MM3 (134-434); RBC 3.98 M/mm3 (3.60-5.2); RDW 17.4 % (11.6-15.6); WHITE BLOOD COUNT 20.8 K/mm3 (4.0-10.0)
[2020-04-22 01:26] LABS: INR 1.34 (0.83-1.09); PROTHROMBIN TIME (PATIENT) 15.8 SEC (9.7-13.0)
[2020-04-22 01:28] LABS: ACTIVATED PTT 36.5 SECONDS (25.2-36.5)
[2020-04-22 01:31] LABS: ALBUMIN 3.5 g/dl (3.4-5.0); BILIRUBIN,TOTAL 0.7 mg/dL (0.2-1); BLOOD UREA NITROGEN 65.6 mg/dL (7-18); CALCIUM 9.9 mg/dL (8.5-10.1); CREATININE 7.2 mg/dL (0.55-1.3); POTASSIUM 5.3 mmol/L (3.5-5.1); TOT PROT 8.4 g/dl (6.4-8.2)
[2020-04-22 02:59] VITALS: BMI 17.4
[2020-04-22] MEDS ORDERED: INSULIN REGULAR HUMAN 100 UNITS/ML *VIAL* (FOR IVP) IVPUSH ONE (03:06)
[2020-04-22] MEDS ORDERED: DEXTROSE 50%-WATER 25 GM/50 ML DISP.SYRIN ONE ×4 (03:13→11:35)
[2020-04-22 03:14] LABS: URINE WBC 1817.4 /uL (0-25.8)
[2020-04-22] MEDS ORDERED: INSULIN REGULAR 100 UNITS in SODIUM CHLORIDE 99 ML IVPB SCH (03:15)
[2020-04-22] MEDS: DEXTROSE 50%-WATER - 25 GM/50 ML VIAL IVPUSH PRN ×2 (03:20→07:45)
--- NOTE | 2020-04-22 03:43 | CONSULT ---
Consult Consult Specialty:: Pulm/CCM Reason for Consultation:: NSTEMI; UTI; DKA - History of Present Illness Chief Complaint: Weakness History of Present Illness: 84 malissa with a PMH of NIDDM (now diet controlled), ESRD (on hemodialysis --), HTN and HLD, who was brought in by her daughter with a c/o weakness and near fall. She also reports vomiting and poor intake. She completed her last iHD session on Thursday. Pt still makes urine and is incontinent. She denies fever, cough, chest pain, headache, dizziness, diarrhea, melena, sick contacts. In the ED labs notable for Trop 198, WBC 20, lactate 3.9, Gluc>400, AGAP 20, beta-hydroxy 3.9. ECG noted A-fib with periods of RVR. CXR clear. Urine specimen noted to be purulent. Blod and urine sent for culture and she was started on Zosyn. Insulin IV 6U given. Cardiology was consulted. 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 Started on Heparin drip and aspirin. Transferred to ICU. Rec'd awake and oriented x3 on room air. Afebrile, 140/60; HR 80's, A-fib with occasional RVR to 120's. C/o right epigastric pain. 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 Cardio/Vascular: Yes: HTN, Hyperlipdemia Renal/: Yes: Renal Failure, Hemodialysis ...: No Endocrine: Yes: Diabetes Mellitus (diet controlled) - Past Surgical History Past Surgical History: Yes: AV Fistula/Graft, Hysterectomy - Alcohol/Substance Use Hx Alcohol Use: No - Smoking History Smoking history: Never smoked Have you smoked in the past 12 months: No - Social History Usual Living Arrangement: With Child ADL: Family Assistance Home Medications - Allergies Allergies/Adverse Reactions: Allergies Allergy/AdvReac Type Severity Reaction Status Date / Time No Known Allergies Allergy Verified 04/21/20 20:19 - Home Medications Home Medications: Ambulatory Orders Amlodipine Besylate [Norvasc -] 10 mg PO DAILY 12/16/13 Pravastatin Sodium [Pravachol -] 40 mg PO HS 12/16/13 Allopurinol [Zyloprim -] 100 mg PO DAILY 08/25/18 Furosemide 40 mg PO DAILY 08/25/18 hydrALAZINE HCL [Apresoline -] 75 mg PO TID 11/03/18 Family Medical History Family History: Unable to Obtain Review of Systems Unable to obtain ROS, reason: Unable Physical Exam Vital Signs: Vital Signs Temperature 98.9 F 04/22/20 02:41 Pulse Rate 71 04/22/20 02:41 Respiratory Rate 22 H 04/22/20 02:41 Blood Pressure 162/56 L 04/22/20 02:41 O2 Sat by Pulse Oximetry (%) 98 04/22/20 02:41 Constitutional: Yes: No Distress, Calm Eyes: Yes: Conjunctiva Clear, PERRL HENT: Yes: Atraumatic, Normocephalic Neck: Yes: Supple, Trachea Midline Cardiovascular: Yes: Pulse Irregular Respiratory: Yes: Regular, CTA Bilaterally (on room air) Gastrointestinal: Yes: Normal Bowel Sounds, Soft Renal/: Yes: Incontinence Extremities: Yes: WNL Edema: No Peripheral Pulses WNL: Yes Integumentary: Yes: WNL Neurological: Yes: Alert, Oriented, Lethargy Psychiatric: Yes: Alert, Oriented Labs: CBC, BMP 04/22/20 00:40 04/22/20 00:40 CBC,CMP WBC 20.8 K/mm3 (4.0-10.0) H 04/22/20 00:40 RBC 3.98 M/mm3 (3.60-5.2) 04/22/20 00:40 Hgb 12.1 GM/dL (10.7-15.3) 04/22/20 00:40 Hct 37.0 % (32.4-45.2) 04/22/20 00:40 MCV 93.0 fl (80-96) 04/22/20 00:40 MCH 30.5 pg (25.7-33.7) 04/22/20 00:40 MCHC 32.8 g/dl (32.0-36.0) 04/22/20 00:40 RDW 17.4 % (11.6-15.6) H 04/22/20 00:40 Plt Count 370 K/MM3 (134-434) 04/22/20 00:40 MPV 8.4 fl (7.5-11.1) 04/22/20 00:40 Absolute Neuts (auto) 19.0 K/mm3 (1.5-8.0) H 04/22/20 00:40 Total Counted 100 04/22/20 00:40 Neutrophils % 91.3 % (42.8-82.8) H 04/22/20 00:40 Neutrophils % (Manual) 84.0 % (42.8-82.8) H 04/22/20 00:40 Band Neutrophils % 4.0 % 04/22/20 00:40 Lymphocytes % 2.5 % (8-40) L D 04/22/20 00:40 Lymphocytes % (Manual) 6.0 % (8-40) L D 04/22/20 00:40 Monocytes % 5.9 % (3.8-10.2) 04/22/20 00:40 Monocytes % (Manual) 6 % (3.8-10.2) D 04/22/20 00:40 Eosinophils % 0.0 % (0-4.5) 04/22/20 00:40 Basophils % 0.3 % (0-2.0) 04/22/20 00:40 Nucleated RBC % 0 % (0-0) 04/22/20 00:40 Platelet Estimate Normal 04/21/20 21:30 Sodium 129 mmol/L (136-145) L 04/22/20 00:40 Potassium 5.3 mmol/L (3.5-5.1) H 04/22/20 00:40 Chloride 90 mmol/L (98-107) L 04/22/20 00:40 Carbon Dioxide 21 mmol/L (21-32) 04/22/20 00:40 Anion Gap 19 MMOL/L (8-16) H 04/22/20 00:40 BUN 65.6 mg/dL (7-18) H 04/22/20 00:40 Creatinine 7.2 mg/dL (0.55-1.3) H 04/22/20 00:40 Est GFR (CKD-EPI)AfAm 5.51 04/22/20 00:40 Est GFR (CKD-EPI)NonAf 4.75 04/22/20 00:40 POC Glucometer 389 UNITS (80-120) 04/22/20 02:34 Random Glucose 458 mg/dL (74-106) H* 04/22/20 00:40 Lactic Acid 3.9 mmol/L (0.4-2.0) H* 04/22/20 00:40 Calcium 9.9 mg/dL (8.5-10.1) 04/22/20 00:40 Total Bilirubin 0.7 mg/dL (0.2-1) 04/22/20 00:40 AST 252 U/L (15-37) H 04/22/20 00:40 ALT 80 U/L (13-61) H 04/22/20 00:40 Alkaline Phosphatase 83 U/L (45-117) 04/22/20 00:40 Creatine Kinase 1610 U/L (26-192) H 04/21/20 21:28 Creatine Kinase Index 3.9 % (0.0-5.0) 04/21/20 21:28 CK-MB (CK-2) 63.7 ng/mL (0.5-3.6) H 04/21/20 21:28 Troponin I 173.00 ng/ml (0.00-0.05) H* 04/22/20 00:40 B-Natriuretic Peptide > 43073.0 pg/ml (5-450) H 04/21/20 22:17 Total Protein 8.4 g/dl (6.4-8.2) H 04/22/20 00:40 Albumin 3.5 g/dl (3.4-5.0) 04/22/20 00:40 Beta-Hydroxybutyrate 3.8 mg/dL (0.2-2.8) H 04/21/20 21:28 Imaging - Results Chest X-ray: Report Reviewed (no opacities or consolidation) Problem List - Problems (1) NSTEMI (non-ST elevated myocardial infarction) Code(s): I21.4 - NON-ST ELEVATION (NSTEMI) MYOCARDIAL INFARCTION (2) DKA (diabetic ketoacidoses) Code(s): E11.10 - TYPE 2 DIABETES MELLITUS WITH KETOACIDOSIS WITHOUT COMA (3) Elevated troponin Code(s): R79.89 - OTHER SPECIFIED ABNORMAL FINDINGS OF BLOOD CHEMISTRY (4) Hyperglycemia Code(s): R73.9 - HYPERGLYCEMIA, UNSPECIFIED (5) Transaminitis Code(s): R74.0 - NONSPEC ELEV OF LEVELS OF TRANSAMNS & LACTIC ACID DEHYDRGNSE (6) Weakness Code(s): R53.1 - WEAKNESS Assessment/Plan 84 year old woman with a PMH of NIDDM (now diet controlled), , ESRD (on hemodialysis -), HTN and HLD, who presents to the ER with weakness. Found to have an NSTEMI with A-fib and with DKA m/l in the setting of urosepsis Plan: -Continue heparin drip and aspirin for NSTEMI -ECG -Consider betablocker for A-fib with RVR currenly rate controlled -F/u cultures, COVID swab -ID consult -Continue Zosyn as empiric coverage for possible UTI; -consider vanco for gram+ coverage given permacath and iHD -Insulin drip as per DKA protocol for glucose range 140-180 -Gentle IV fluids -Trend AGAP and beta-hydroxy -Trend lactate Bailey Santa, ACNP CCT 35mins
[2020-04-22] MEDS ORDERED: PIPERACILLIN/TAZOB 3.375 GM 3.375 GM in DEXTROSE 5%-WATER - 50 ML IVPB ONE (06:00)
[2020-04-22] MEDS ORDERED: DEXTROSE 5%-WATER - 1,000 ML IV SCH (06:15)
[2020-04-22] MEDS ORDERED: DEXTROSE 5%-WATER - 50 ML IVPB ONE ×2 (06:16→13:04)
[2020-04-22] MEDS ORDERED: PIPERACILLIN/TAZOBACTAM 3.375 GM VIAL IVPB ONE (06:16)
[2020-04-22 06:58] LABS: HEMATOCRIT 35.6 % (32.4-45.2); HEMOGLOBIN 11.7 GM/dL (10.7-15.3); MCH 30.1 pg (25.7-33.7); MEAN CELL VOLUME 91.1 fl (80-96); MEAN PLT VOLUME 8.3 fl (7.5-11.1); PLATELET COUNT 366 K/MM3 (134-434); RBC 3.91 M/mm3 (3.60-5.2); WHITE BLOOD COUNT 20.5 K/mm3 (4.0-10.0)
[2020-04-22 07:12] LABS: INR 1.39 (0.83-1.09); PROTHROMBIN TIME (PATIENT) 16.4 SEC (9.7-13.0)
[2020-04-22 07:14] LABS: ACTIVATED PTT 56.1 SECONDS (25.2-36.5)
[2020-04-22 07:59] LABS: BLOOD UREA NITROGEN 73.3 mg/dL (7-18); CALCIUM 9.9 mg/dL (8.5-10.1); CREATININE 7.2 mg/dL (0.55-1.3); MAGNESIUM 2.5 mg/dL (1.8-2.4); POTASSIUM 4.6 mmol/L (3.5-5.1)
[2020-04-22] MEDS ORDERED: METOPROLOL TARTRATE 5 MG/5 ML VIAL IVPUSH PRN (08:39)
--- NOTE | 2020-04-22 09:28 | EKG ---
Test Reason : Blood Pressure : / mmHG Vent. Rate : 071 BPM Atrial Rate : 071 BPM P-R Int : 166 ms QRS Dur : 094 ms QT Int : 412 ms P-R-T Axes : -83 053 030 degrees QTc Int : 447 ms UNUSUAL P AXIS, POSSIBLE ECTOPIC ATRIAL RHYTHM VOLTAGE CRITERIA FOR LEFT VENTRICULAR HYPERTROPHY ABNORMAL ECG WHEN COMPARED WITH ECG OF 21-APR-2020 22:11, ECTOPIC ATRIAL RHYTHM HAS REPLACED SINUS RHYTHM QT HAS SHORTENED Confirmed by Morelia Puri ([id number]) on 04/22/2020 9:27:53 AM Referred By: Confirmed By:Morelia Puri
--- NOTE | 2020-04-22 09:29 | EKG ---
Test Reason : Blood Pressure : / mmHG Vent. Rate : 095 BPM Atrial Rate : 084 BPM P-R Int : 166 ms QRS Dur : 098 ms QT Int : 422 ms P-R-T Axes : 000 062 005 degrees QTc Int : 530 ms SINUS RHYTHM WITH FREQUENT and consecutive PREMATURE VENTRICULAR COMPLEXES AND PREMATURE ATRIAL COMPLEXES VOLTAGE CRITERIA FOR LEFT VENTRICULAR HYPERTROPHY NONSPECIFIC T WAVE ABNORMALITY PROLONGED QT ABNORMAL ECG WHEN COMPARED WITH ECG OF 03-NOV-2018 20:14, SIGNIFICANT CHANGES HAVE OCCURRED Confirmed by Morelia Puri ([id number]) on 04/22/2020 9:29:09 AM Referred By: Confirmed By:Morelia Puri
--- NOTE | 2020-04-22 09:58 | CON.ID ---
Consult Consult Specialty:: infectious disease Reason for Consultation:: leukocytosis - History of Present Illness Chief Complaint: weakness History of Present Illness: 84 yo female esrd/hd, s/p HD Thursday- no issues, episode vomting after yesterday noted to be weak and brought to ED elevated WBC, no fevers elevated cpk, troponin and lfts and glucose admitted to ICU on iv heparin asked to see for possible sepsis lactic acid 3.9 she is hemodynamically stable she is alert notes some midepigastric discomfort no other complaints no dysura, no diarrhea no further vomiting no sob or cough still makes a little urine - 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 Cardio/Vascular: Yes: HTN, Hyperlipdemia Renal/: Yes: Renal Failure, Hemodialysis ...: No Endocrine: Yes: Diabetes Mellitus (diet controlled) - Past Surgical History Past Surgical History: Yes: AV Fistula/Graft, Hysterectomy - Alcohol/Substance Use Hx Alcohol Use: No - Smoking History Smoking history: Never smoked Have you smoked in the past 12 months: No - Social History Usual Living Arrangement: With Child ADL: Family Assistance Place of : Other History of Recent Travel: No Home Medications - Allergies Allergies/Adverse Reactions: Allergies Allergy/AdvReac Type Severity Reaction Status Date / Time No Known Allergies Allergy Verified 04/21/20 20:19 - Home Medications Home Medications: Ambulatory Orders Amlodipine Besylate [Norvasc -] 10 mg PO DAILY 12/16/13 Pravastatin Sodium [Pravachol -] 40 mg PO HS 12/16/13 Allopurinol [Zyloprim -] 100 mg PO DAILY 08/25/18 Furosemide 40 mg PO DAILY 08/25/18 hydrALAZINE HCL [Apresoline -] 75 mg PO TID 11/03/18 Family Medical History Family History: Unable to Obtain, Denies Review of Systems - Review of Systems Constitutional: reports: Weakness. denies: Chills, Fever Eyes: reports: No Symptoms HENT: reports: No Symptoms Neck: reports: No Symptoms Cardiovascular: reports: No Symptoms Respiratory: reports: No Symptoms Gastrointestinal: reports: Abdominal Pain (midepigastric discomfort) Genitourinary: reports: No Symptoms Breasts: reports: No Symptoms Reported Musculoskeletal: reports: No Symptoms Integumentary: reports: No Symptoms Neurological: reports: No Symptoms Physical Exam Vital Signs: Vital Signs Temperature 98.8 F 04/22/20 06:00 Pulse Rate 144 H 04/22/20 09:09 Respiratory Rate 18 04/22/20 06:00 Blood Pressure 162/49 L 04/22/20 09:09 O2 Sat by Pulse Oximetry (%) 98 04/22/20 06:00 Constitutional: Yes: No Distress, Calm, Thin Eyes: Yes: Conjunctiva Clear, EOM Intact HENT: Yes: Atraumatic, Normocephalic. No: Thrush Neck: Yes: Trachea Midline Cardiovascular: Yes: Regular Rate and Rhythm Respiratory: Yes: Regular, CTA Bilaterally Gastrointestinal: Yes: Normal Bowel Sounds, Soft, Tenderness, Epigastrium ...Rectal Exam: Yes: Deferred Renal/: No: Bladder Distention, CVA Tenderness - Left, CVA Tenderness - Right Musculoskeletal: Yes: WNL Extremities: Yes: WNL, Other (left avf- no erythema or tenderness) Edema: No Neurological: Yes: Alert Labs: CBC, BMP 04/22/20 06:20 04/22/20 06:20 cultures pending Laboratory Tests 04/22/20 04/22/20 00:40 06:20 AST 252 H ALT 80 H Creatine Kinase 1097 H Creatine Kinase Index 3.4 CK-MB (CK-2) 37.6 H Troponin I 166.00 H* Imaging - Results Chest X-ray: Report Reviewed, Image Reviewed Problem List - Problems (1) Leukocytosis Code(s): D72.829 - ELEVATED WHITE BLOOD CELL COUNT, UNSPECIFIED (2) NSTEMI (non-ST elevated myocardial infarction) Code(s): I21.4 - NON-ST ELEVATION (NSTEMI) MYOCARDIAL INFARCTION (3) Abnormal LFTs Code(s): R94.5 - ABNORMAL RESULTS OF LIVER FUNCTION STUDIES (4) ESRD (end stage renal disease) on dialysis Code(s): N18.6 - END STAGE RENAL DISEASE; Z99.2 - DEPENDENCE ON RENAL DIALYSIS Assessment/Plan suspect PA with elevated troponins do not feel sepsis explains her symptoms no localizing source of infection no fevers ?leukocytosis in reaction to her PA ?new afib continue zosyn, vancomycin one dose pending blood cultures cxray clear await cardiology evaluation suspect lfts are elevated due to CPK but can get liver sonogram/abdomen sonogram UA looks grossly contaminated but cultures have been sent and are pending d/w transportation broker
[2020-04-22] MEDS ORDERED: PIPERACILLIN/TAZOB 2.25 GM 2.25 GM in DEXTROSE 5%-WATER - 50 ML IVPB SCH ×3 (10:00→18:45)
[2020-04-22] MEDS ORDERED: PIPERACILLIN/TAZOB 3.375 GM 3.375 GM in DEXTROSE 5%-WATER - 50 ML IVPB SCH (10:00)
[2020-04-22] MEDS ORDERED: VANCOMYCIN 1 GRAM (PRE-DOCKED) 1,000 MG/250 ML BAG IVPB ONE (10:05)
--- NOTE | 2020-04-22 11:00 | PN ---
Progress Note (short form) - Note Progress Note: PULM/CCM Patient seen and examined in ICU. Will stop insulin drip, elevated AGAP likely secondary to ESRD and metabolic lactic acidosis. Vital Signs Period Temp Pulse Resp BP Sys/Weber Pulse Ox Last 24 Hr 97.4 F-99.0 F 63-144 15-25 130-162/47-65 96-99 Intake & Output 04/19/20 04/20/20 04/21/20 04/22/20 23:59 23:59 23:59 23:59 Intake Total 94 Balance 94 Weight 54.431 kg 48.988 kg Active Medications Aspirin (Ecotrin -) 81 mg PO DAILY [facility] Last Admin: 04/22/20 11:47 Dose: 81 mg Documented by: Heparin Sodium/Dextrose (Heparin Infusion -) 25,000 units in 500 mls @ 14 mls/hr IVPB TITR [facility]; Protocol Last Titration: 04/22/20 09:03 Dose: 700 units/hr, 14 mls/hr Documented by: Dextrose (D5w -) 1,000 mls @ 42 mls/hr IV ASDIR MICHELLE Last Admin: 04/22/20 06:40 Dose: 42 mls/hr Documented by: Piperacillin Sod/Tazobactam (Sod 2.25 gm/ Dextrose) 50 mls @ 100 mls/hr IVPB Q8H [facility]; Protocol Metoprolol Tartrate (Lopressor -) 25 mg PO BID MICHELLE Last Admin: 04/22/20 11:47 Dose: 25 mg Documented by: Valsartan (Diovan -) 40 mg PO DAILY [facility] Last Admin: 04/22/20 11:47 Dose: 40 mg Documented by: CBC, BMP 04/22/20 06:20 04/22/20 06:20 A/ ?UTI (urine negative) Metabolic lactic acidosis NSTEMI New onset AFIB ESRD (on HD, last HD 04/20) leukocytosis P/ -Continue heparin drip and aspirin for NSTEMI -Appreciate cardiology recs -Continue betablocker for A-fib with RVR currently rate controlled -F/u cultures, COVID swab -Appreciate ID recs -Continue Zosyn as empiric coverage (leukocytosis) -D/c insulin gtt (beta-hydroxy 1.2, no ketones in urine) -Gentle IV fluids -Trend AGAP and beta-hydroxy -Can start DM diet -Trend lactate Ingrid Sun, [facility] [id number]
--- NOTE | 2020-04-22 11:01 | CON.CARD ---
Cardiology Consult (text) - Consultation Consultation Note: Chief Complaint: Events noted, notes reviewed, resting in bed, reported generalized weakness, no reported chest discomfort, no reported dyspnea, evidence of non-ST segment elevation myocardial infarction questionable underlying sepsis syndrome- reported atrial fibrillation not evident on EKG review and monitor review History of Present Illness: Seen and examined in the ICU. Full consult dictated Medications: Current Medications Generic Name Dose Route Start Last Admin Trade Name Freq PRN Reason Stop Dose Admin Heparin Sodium/Dextrose 25,000 units in 500 mls @ 14 mls/hr 04/21/20 23:45 04/22/20 09:03 Heparin Infusion - IVPB 700 units/hr TITR MICHELLE 14 mls/hr Titration Protocol 700 UNITS/HR Insulin Human Regular 100 100 mls @ 4.899 mls/hr 04/22/20 03:15 04/22/20 05:00 units/ Sodium Chloride IVPB 0.05 units/kg/hr TITR MICHELLE 2.449 mls/hr Titration Protocol 0.1 UNITS/KG/HR Dextrose 1,000 mls @ 42 mls/hr 04/22/20 06:15 04/22/20 06:40 D5w - IV 42 mls/hr ASDIR MICHELLE Administration Piperacillin Sod/Tazobactam 50 mls @ 100 mls/hr 04/22/20 14:00 Sod 2.25 gm/ Dextrose IVPB Q8H MICHELLE Protocol Vancomycin HCl 1,000 mg in 250 mls @ 166.667 mls/hr 04/22/20 10:05 04/22/20 10:31 Vancomycin (Pre-Docked) IVPB 04/22/20 11:34 166.667 mls/hr ONCE ONE Administration Protocol Metoprolol Tartrate 5 mg 04/22/20 08:39 04/22/20 09:09 Lopressor Injection - IVPUSH 5 mg Q4H PRN Administration HYPERTENSION Review of Systems - Review of Systems Unable to obtain Vital Signs: Last Vital Signs Temp Pulse Resp BP Pulse Ox 98.8 F 144 H 18 162/49 L 98 04/22/20 06:00 04/22/20 09:09 04/22/20 06:00 04/22/20 09:09 04/22/20 06:00 Intake & Output 04/19/20 04/20/20 04/21/20 04/22/20 23:59 23:59 23:59 23:59 Intake Total 94 Balance 94 Weight 120 lb 108 lb Neck: Supple Negative JVD Respiratory: Diminished Breath Sounds at the Bases Cardiovascular: S1 S2 Regular Rate Rhythm occasional ectopics Gastrointestinal: Soft Benign Normal Bowel Sounds Ext: Negative Edema Labs: Troponin, BNP 04/21/20 04/21/20 04/22/20 21:28 22:17 00:40 Troponin I 198.00 H* 173.00 H* B-Natriuretic Peptide > 75520.0 H > 66788.0 H 04/22/20 06:20 Troponin I 166.00 H* B-Natriuretic Peptide CBC, BMP 04/22/20 06:20 04/22/20 06:20 Hepatic Panel Total Bilirubin 0.7 mg/dL (0.2-1) 04/22/20 00:40 AST 252 U/L (15-37) H 04/22/20 00:40 ALT 80 U/L (13-61) H 04/22/20 00:40 Alkaline Phosphatase 83 U/L (45-117) 04/22/20 00:40 Albumin 3.5 g/dl (3.4-5.0) 04/22/20 00:40 INR, PTT INR 1.39 (0.83-1.09) H 04/22/20 06:20 Assessment/Plan ASSESSMENT: 1. Generalized weakness, CAD with evidence of non-ST segment elevation myocardial infarction/probable posterior infarct/LCx territory angina pectoris 2. Systolic/diastolic LV dysfunction with clinical class 0 NYHA classification LV failure (BNP elevation referable to the above noted non-ST segment elevation myocardial infarction, chronic diastolic LV dysfunction and underlying chronic kidney disease) 3. Reported atrial fibrillation not evident on EKG review and monitor review 4. HTN 5. Hypercholesterolemia 6. ESRD on HD 7. Leukocytosis; and lactic acidosis- sepsis syndrome suspected 8. Abnormal LFTs etiology to be determined PLAN: 1. Continue Heparin therapy with caution for 24-48 hours, unless absolutely contraindicated (serial cardiac enzymes to be obtained to document peak) 2. Continue beta-stephenie therapy and dose titration as tolerated, hemodynamics permitting 3. Recommend the addition of TREVON inhibitors or ARBS- hemodynamics permitting, unless absolutely contraindicated 4. Recommend the addition of Statin therapy once LFTs normalize 5. Recommend the addition of Ecotrin therapy +/- Plavix therapy 6. Antibiotics as per ID service/primary team 7. Evaluation of the above-note LFT abnormality 8. Echocardiography for evaluation of LV function/valvular function Plan for conservative medical management considering patient's advanced age and comorbidities Elia Fisher MD
[2020-04-22] MEDS ORDERED: METOPROLOL TARTRATE 25 MG TABLET (FP) PO SCH (11:15)
[2020-04-22] MEDS ORDERED: ASPIRIN COATED 81 MG TABLET.EC PO SCH (11:15)
[2020-04-22] MEDS ORDERED: VALSARTAN 40 MG TABLET (FP) PO SCH (11:15)
[2020-04-22] MEDS ORDERED: PIPERACILLIN/TAZOBACTAM 2.25 GM VIAL IVPB ONE (13:04)
[2020-04-22] MEDS ORDERED: VANCOMYCIN 1 GM in D5W (PRE-DOCKED) 1,000 MG/250 ML IVPB ONE (13:44)
[2020-04-22 13:58] LABS: BLOOD UREA NITROGEN 71.4 mg/dL (7-18); CALCIUM 8.6 mg/dL (8.5-10.1); CREATININE 7.3 mg/dL (0.55-1.3); POTASSIUM 4.9 mmol/L (3.5-5.1)
--- NOTE | 2020-04-22 14:02 | CONS ---
DATE OF CONSULTATION: 04/22/2020 CONSULTATION REQUESTED BY: Hospitalist service CHIEF COMPLAINT: Generalized weakness witnessed by the family, evidence of ong-IM-meyazsb elevation myocardial infarction. HISTORY: History was predominantly obtained from the chart. An 84-year-old female with known history of coronary artery disease, angina pectoris, diastolic left ventricular dysfunction with clinical class 0 [place] Heart Association Classification left ventricular failure, hypertension, hypercholesterolemia, end-stage renal disease on hemodialysis, who was brought by her daughter after witnessing progressive weakness. No reported chest discomfort. No reported dyspnea. Upon evaluation in the emergency room patient was noted to have elevated CPK/troponin level consistent with sdc-EH-[id number] elevation myocardial infarction. Patient in addition was noted to have evidence of leukocytosis. Urinary tract infection was suspected with probable sepsis. Patient in addition was noted to have elevated lactic acid level. Patient currently is resting comfortably in bed. No symptoms reported. Rhythm is sinus with premature supraventricular contractions. Nursing reported atrial fibrillation, but upon review of EKGs and monitor no evidence of atrial fibrillation was detected. No additional history is obtainable from the patient. PAST MEDICAL HISTORY: Coronary artery disease, angina pectoris, diastolic left ventricular dysfunction with clinical class 0 [place] Heart Association Classification left ventricular failure, hypertension/hypertensive cardiovascular disease, hypercholesterolemia, end-stage renal disease on hemodialysis. SOCIAL HISTORY: Not known. FAMILY HISTORY: Not known. ALLERGIES: None reported. MEDICAL THERAPY CURRENTLY: Includes heparin drip, insulin drip, piperacillin with tazobactam, vancomycin and IV Lopressor. REVIEW OF SYSTEMS: Not obtainable. PHYSICAL EXAMINATION: Vital Signs: Blood pressure is 162/49 mmHg. Pulse rate is 144 beats per minute with ectopics. Temperature 98.8. Head and Neck: Pupils equally reactive to light and accommodation. External ocular muscles are intact. Anicteric sclerae. Negative JVD. No bruit appreciated. Chest: Diminished breath sounds at the bases. Cardiovascular: S1, S2, regular, tachycardic, occasional ectopics. Abdomen: Soft, benign. Normoactive bowel sounds. Extremities: Negative edema. EKG reveals sinus rhythm with premature supraventricular contraction and ST-segment abnormality. Troponin I of 198, repeat 173. BNP greater than 35,000. CBC revealed a white cell count 20.5, hemoglobin of .7, platelet count 366. Basic metabolic profile revealed sodium 134, potassium 4.6, BUN 73.3, creatinine 7.2, glucose 82, AST 252, ALT 80, INR 1.39. ASSESSMENT: 1. Generalized weakness, coronary artery disease with evidence of ezm-JV-kfbotfd elevation myocardial infarction, probable posterior infarct, circumflex coronary artery territory, angina pectoris. 2. Systolic/diastolic left ventricular dysfunction with clinical class 0 [place] Heart Association Classification left ventricular failure, B-natriuretic peptide elevation referable to the above-noted igv-JK-vvzaqzl elevation myocardial infarction, chronic diastolic dysfunction and underlying chronic kidney disease. 3. Reported atrial fibrillation not evident on an EKG and review of monitor. 4. Hypertensive cardiovascular disease. 5. Hypercholesterolemia. 6. End-stage renal disease on hemodialysis. 7. Leukocytosis and lactic acidosis. Sepsis syndrome suspected. 8. Abnormal liver function testing, etiology of which is to be determined. RECOMMENDATION: 1. Continuation of heparin therapy with caution for 24 to 48 hours unless it is absolutely contraindicated. Serial cardiac enzymes to be obtained to document peak. 2. Continue beta-stephenie therapy and dose titration as tolerated hemodynamics permitting. 3. Recommend the addition of TREVNO inhibitor or angiotensin receptor blockers, hemodynamics permitting unless it is absolutely contraindicated. 4. Recommend the addition of statin therapy once liver function testing normalizes. 5. Recommend the addition of Ecotrin therapy +/- Plavix therapy. 6. Antibiotics as per ID service/primary team. 7. Evaluation of the above-noted liver function test abnormality. 8. Echocardiography for evaluation of left ventricular systolic function and valvular function. Will plan for conservative medical management considering patient's advanced age and comorbidities. Nell [id number]
[2020-04-22] MEDS ORDERED: SODIUM CHLORIDE 500 ML IV STA (14:10)
[2020-04-22] MEDS ORDERED: HEPARIN NA (PORCINE) 5,000 UNITS/ML 1ML VIAL IVPUSH PRN ×2 (14:12)
[2020-04-22] MEDS ORDERED: HEPARIN - 25,000 UNIT in SODIUM CHLORIDE 495 ML IV SCH (14:15)
--- NOTE | 2020-04-22 14:58 | CON.NEP ---
Consult Consult Specialty:: Nephrology Referred by:: Teresa Reason for Consultation:: ESRD - History of Present Illness Chief Complaint: weakness, near fall History of Present Illness: s/p episode of weakness leukocytosis sepsis metabolic acidosis new onset afib Active Medications Aspirin (Ecotrin -) 81 mg PO DAILY [facility] Last Admin: 04/22/20 11:47 Dose: 81 mg Documented by: Heparin Sodium (Porcine) (Heparin -) 1,000 unit IVPUSH PRN PRN PRN Reason: Heparin Heparin Sodium (Porcine) (Heparin -) 5,000 unit IVPUSH PRN PRN PRN Reason: Heparin Sodium Chloride (Normal Saline -) 500 mls @ 500 mls/hr IV ASDIR STA Stop: 04/22/20 15:09 Heparin Sodium (Porcine) 25, (000 unit/ Sodium Chloride) 500 mls @ 16 mls/hr IV TITR MICHELLE; Protocol Metoprolol Tartrate (Lopressor -) 25 mg PO BID [facility] Last Admin: 04/22/20 11:47 Dose: 25 mg Documented by: Valsartan (Diovan -) 40 mg PO DAILY [facility] Last Admin: 04/22/20 11:47 Dose: 40 mg Documented by: - Past Medical History 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 Cardio/Vascular: Yes: HTN, Hyperlipdemia Renal/: Yes: Renal Failure, Hemodialysis ...: No Endocrine: Yes: Diabetes Mellitus (diet controlled) - Past Surgical History Past Surgical History: Yes: AV Fistula/Graft, Hysterectomy - Alcohol/Substance Use Hx Alcohol Use: No - Smoking History Smoking history: Never smoked Have you smoked in the past 12 months: No - Social History Usual Living Arrangement: With Child ADL: Family Assistance History of Recent Travel: No Home Medications - Allergies Allergies/Adverse Reactions: Allergies Allergy/AdvReac Type Severity Reaction Status Date / Time No Known Allergies Allergy Verified 04/21/20 20:19 - Home Medications Home Medications: Ambulatory Orders Amlodipine Besylate [Norvasc -] 10 mg PO DAILY 12/16/13 Pravastatin Sodium [Pravachol -] 40 mg PO HS 12/16/13 Allopurinol [Zyloprim -] 100 mg PO DAILY 08/25/18 Furosemide 40 mg PO DAILY 08/25/18 hydrALAZINE HCL [Apresoline -] 75 mg PO TID 11/03/18 Family Medical History Family History: Unable to Obtain, Denies Nephrology Consult - Height Height: 5 ft 6 in - Weight Weight: 108 lb - BMI Body Mass Index (BMI): 17.4 - Lab Results CBC,BMP: CBC, BMP 04/22/20 06:20 04/22/20 13:30 Anion Gap: Anion Gap Anion Gap 19 MMOL/L (8-16) H 04/22/20 13:30 - Physical Examination Vital Signs: Vital Signs Temperature 98.8 F 04/22/20 06:00 Pulse Rate 63 04/22/20 10:00 Respiratory Rate 24 H 04/22/20 10:00 Blood Pressure 130/47 L 04/22/20 10:00 O2 Sat by Pulse Oximetry (%) 98 04/22/20 08:00 Assessment/Plan ?UTI (urine negative) Metabolic lactic acidosis poss sepsis NSTEMI New onset AFIB ESRD (on HD, last HD 04/20) leukocytosis DM2 HTN HLD Plan HD MWF maintenance
[2020-04-22] MEDS ORDERED: DEXTROSE 50%-WATER - 25 GM/50 ML VIAL IVPUSH ONE (17:11)
[2020-04-22] MEDS ORDERED: DEXTROSE 50%-WATER - 25 GM/50 ML VIAL ONE (17:22)
[2020-04-22 17:44] VITALS: TEMP 97
[2020-04-22] MEDS ORDERED: NOREPINEPHRINE D5W PREMIX 16,000 MCG/500 ML BAG IVPB ONE (18:44)
[2020-04-22] MEDS ORDERED: SODIUM BICARBONATE 8.4% 50 MEQ/50 ML VIAL ONE (18:52)
[2020-04-22 20:35] VITALS: BP 95/52; PULSE 51
--- NOTE | 2020-04-22 20:42 | PN ---
Progress Note (short form) - Note Progress Note: called to intubate this patient who has lost the consciousness.Did DL with MAC #3.VCV ETT 7 + ETco2.BS R#L.Advise ABG and CXR.
--- NOTE | 2020-04-22 21:47 | PN ---
Progress Note (short form) - Note Progress Note: Was called to the bedside by an RN. patient was awake, non-verbal, flat affect, not responding to any commands. right arm stiff and contracted. Patient became bradycardic on monitor, were not able to get SaO2 due to cold extremities. Soham case called for possible stroke, heparin gtt stopped. Some food noted inside patients mouth, had to forcefully open patients mouth and do deep suctioning. Patient was emergently intubated by anesthesia. Patient had PEA for which ACLS protocol initiated. patients family informed about patients status and all resuscitation attempts sopped after family arrived and requested to stop chest compressions.
--- NOTE | 2020-04-23 11:15 | EKG ---
Test Reason : Blood Pressure : / mmHG Vent. Rate : 084 BPM Atrial Rate : 060 BPM P-R Int : 170 ms QRS Dur : 102 ms QT Int : 428 ms P-R-T Axes : 266 053 003 degrees QTc Int : 505 ms UNUSUAL P AXIS, POSSIBLE ECTOPIC ATRIAL RHYTHM WITH FREQUENT and consecutive PREMATURE ATRIAL COMPLEXES LEFT VENTRICULAR HYPERTROPHY WITH REPOLARIZATION ABNORMALITY PROLONGED QT ABNORMAL ECG WHEN COMPARED WITH ECG OF 21-APR-2020 23:30, T WAVE INVERSION MORE EVIDENT IN LATERAL LEADS PREMATURE ATRIAL COMPLEXES Confirmed by GINO MONTOYA MD ([id number]) on 04/23/2020 11:14:58 AM Referred By: KYRA Confirmed By:GINO MONTOYA MD
== END 2020-04-22 20:15 | disposition expired ==
LOC: SUPCPDRO 19:49 → JER 19:49 → JERBED 22:00 → JICU 04-22 02:34
PROVIDERS: ADMIT Internal Medicine Pulmonary Disease; ATTEND Internal Medicine Pulmonary Disease
PROC: 5A1935Z Respiratory Ventilation, Less than 24 Consecutive Hours (ICD-10-PCS; principal; 2020-04-22)
PROC: 0BH17EZ Insertion of Endotracheal Airway into Trachea, Via Natural or Artificial Opening (ICD-10-PCS; 2020-04-22)
PROC: 5A12012 Performance of Cardiac Output, Single, Manual (ICD-10-PCS; 2020-04-22)
DX: I21.4 Non-ST elevation (NSTEMI) myocardial infarction (principal); N18.6 End stage renal disease; E87.2 Acidosis; I12.0 Hypertensive chronic kidney disease with stage 5 chronic kidney disease or end stage renal disease; N39.0 Urinary tract infection, site not specified; E87.1 Hypo-osmolality and hyponatremia; I48.91 Unspecified atrial fibrillation; E11.22 Type 2 diabetes mellitus with diabetic chronic kidney disease; D72.829 Elevated white blood cell count, unspecified; I25.10 Atherosclerotic heart disease of native coronary artery without angina pectoris; E78.5 Hyperlipidemia, unspecified; I46.9 Cardiac arrest, cause unspecified; E11.65 Type 2 diabetes mellitus with hyperglycemia; R11.10 Vomiting, unspecified; R00.1 Bradycardia, unspecified; E87.5 Hyperkalemia
CPT/HCPCS: 36415; 71045-TC-FY; 80048; 80053; 81003; 82010; 82550; 82553; 82803; 82962; 83605; 83735; 83880; 84100; 84484; 85025; 85027; 85379; 85610; 85730; 87040; 87086; 87186; 93005; 93010; 94002; 99285-25; J1644; U0003